=== PATIENT | male | born 1935 | race Caucasian/White ===

== ENCOUNTER 2017-08-09 16:50 | Emergency (ER) | payer MEDICARE, OTHER ==
[2017-08-09 19:50] LABS: ADD MAN DIFF? NO
[2017-08-09 19:52] LABS: BASOPHILS % 0.2 % (0.0-2.0); EOSINOPHILS # 0.1 10^3/ul (0.0-0.5); EOSINOPHILS % 0.7 % (0.0-7.0); HEMATOCRIT 34.1 % (42.0-52.0); HEMOGLOBIN 11.2 g/dl (14.0-18.0); LYMPHOCYTES # 2.3 10^3/ul (0.8-2.9); LYMPHOCYTES % 23.1 % (15.0-51.0); MEAN CORPUSCULAR HEMOGLOBIN 26.9 pg (29.0-33.0); MEAN CORPUSCULAR HGB CONC 32.8 g/dl (32.0-37.0); MEAN PLATELET VOLUME 10.1 fl (7.4-10.4); MONOCYTE # 0.6 10^3/ul (0.3-0.9); MONOCYTES % 5.8 % (0.0-11.0); NEUTROPHIL # 6.8 10^3/ul (1.6-7.5); NEUTROPHILS % 68.2 % (39.0-77.0); PLATELET COUNT 178 10^3/UL (140-415); RED BLOOD COUNT 4.16 10^6/ul (4.70-6.10); RED CELL DISTRIBUTION WIDTH 19.2 % (11.5-14.5)
[2017-08-09] MEDS: ACETAMINOPHEN 500 MG TAB PO (19:56)
[2017-08-09 20:18] LABS: LACTIC ACID 1.3 mmol/L (0.5-2.0)
[2017-08-09 20:18] LABS: ALANINE AMINOTRANSFERASE 17 IU/L (13-69); ALBUMIN 4.7 g/dl (3.3-4.9); ALBUMIN/GLOBULIN RATIO 1.14; ALKALINE PHOSPHATASE 95 IU/L (42-121); ANION GAP 22 (8-16); ASPARTATE AMINO TRANSFERASE 26 IU/L (15-46); BILIRUBIN,INDIRECT 0.7 mg/dl (0-1.1); BILIRUBIN,TOTAL 0.7 mg/dl (0.2-1.3); BLOOD UREA NITROGEN 26 mg/dl (7-20); CALCIUM 9.1 mg/dl (8.4-10.2); CARBON DIOXIDE 21 mmol/L (21-31); CHLORIDE 106 mmol/L (97-110); CREATININE 1.47 mg/dl (0.61-1.24); GLUCOSE 112 mg/dl (70-220); POTASSIUM 3.3 mmol/L (3.5-5.1); SODIUM 146 mmol/L (135-144); TOTAL PROTEIN 8.8 g/dl (6.1-8.1)
[2017-08-09 20:20] LABS: PT RATIO 1.1
[2017-08-09 20:21] LABS: PARTIAL THROMBOPLASTIN TIME 31.5 Sec (25.0-35.0)
[2017-08-09 20:28] LABS: B-TYPE NATRIURETIC PEPTIDE 6020 PG/ML (0-450); TROPONIN-I 0.022 ng/ml (0.00-0.12)
[2017-08-09 20:38] LABS: ADD UMIC YES; UR ASCORBIC ACID NEGATIVE (NEGATIVE); UR BACTERIA FEW /HPF (NONE SEEN); UR BILIRUBIN (Dip) NEGATIVE (NEGATIVE); UR BLOOD (Dip) 3+ mg/dL (NEGATIVE); UR CLARITY CLEAR (CLEAR); UR COLOR YELLOW (YELLOW); UR GLUCOSE (Dip) NEGATIVE (NEGATIVE); UR KETONES (Dip) NEGATIVE (NEGATIVE); UR LEUKOCYTE ESTERASE (Dip) TRACE Leu/ul (NEGATIVE); UR NITRITE (Dip) NEGATIVE (NEGATIVE); UR RBC 15 /HPF (0-5); UR SPECIFIC GRAVITY (Dip) 1.008 (1.003-1.030); UR TOTAL PROTEIN (Dip) 1+ mg/dl (NEGATIVE); UR UROBILINOGEN (Dip) NEGATIVE (NEGATIVE); UR WBC 7 /HPF (0-5)
[2017-08-09 21:21] LABS: INR 1.09; PROTIME 14.2 Sec (11.9-14.9)
[2017-08-09] MEDS: CEFTRIAXONE 1 GM/50 ML (PMX) 50 ML IVPB (22:04)
[2017-08-09] MEDS: FUROSEMIDE 40 MG INJ IV (22:04)
== END 2017-08-09 23:31 | disposition home or self-care (01) ==
LOC: E/R 16:50
DX: N30.01 Acute cystitis with hematuria (principal); I50.9 Heart failure, unspecified; I10 Essential (primary) hypertension; Z79.4 Long term (current) use of insulin; Z79.82 Long term (current) use of aspirin; Z79.84 Long term (current) use of oral hypoglycemic drugs
CPT/HCPCS: 71045; 74176; 80053; 81001; 83605; 83880; 84484; 85025; 85610; 85730; 87040; 87086; 93005; 96374; 96375; 99285-25

== ENCOUNTER 2017-08-17 07:47 | Inpatient (IN) | payer MEDICARE, OTHER ==
[2017-08-17] MEDS ORDERED: IODIXANOL LOCM 100 ML BTL ×3 (09:22→10:55)
[2017-08-17] MEDS ORDERED: LIDOCAINE 1% (MDV) 20 ML INJ (09:22)
[2017-08-17] MEDS ORDERED: FENTAnyl 50 MCG/ML VIAL (09:22)
[2017-08-17] MEDS ORDERED: MIDAZOLAM 1 MG/ML 2 ML INJ (09:22)
[2017-08-17] MEDS ORDERED: VERAPAMIL 5 MG INJ (09:23)
[2017-08-17] MEDS ORDERED: NITROGLYCERIN (IC) 100 MCG/ML INJ (09:23)
[2017-08-17] MEDS ORDERED: HEPARIN 1000 UNITS/ML 10 ML INJ (09:23)
[2017-08-17] MEDS ORDERED: TICAGRELOR 90 MG TABLET (10:09)
[2017-08-17] MEDS ORDERED: ASPIRIN 81 MG TAB (10:09)
[2017-08-17] MEDS ORDERED: IOHEXOL 350MG/ML 50 ML BTL (10:55)
[2017-08-17] MEDS ORDERED: AL HYDROX/MG HYDROX/SIMETH 30 ML CUP PO (11:00)
[2017-08-17] MEDS ORDERED: morphine 2 MG INJ IV (11:00)
[2017-08-17] MEDS ORDERED: OXYCODONE/ACETAMINOPHEN (5/325) TAB PO (11:00)
[2017-08-17] MEDS ORDERED: ONDANSETRON 4 MG INJ IV ×2 (11:00→18:00)
[2017-08-17] MEDS ORDERED: ACETAMINOPHEN 325 MG TAB PO ×2 (11:00→18:00)
[2017-08-17] MEDS: SOD CHLORIDE 0.9% 1,000 ML IV (11:29)
[2017-08-17] MEDS ORDERED: NITROGLYCERIN (SL) 0.4 MG TAB (11:55)
[2017-08-17] MEDS ORDERED: NITROGLYCERIN (SL) 0.4 MG TAB SL (12:00)
[2017-08-17] MEDS: NITROGLYCERIN (SL) 0.4 MG TAB SL (12:07)
[2017-08-17] MEDS ORDERED: DOCUSATE SODIUM 100 MG CAP PO (18:00)
[2017-08-17] MEDS ORDERED: NACL 0.9% 3 ML SYG IV (18:00)
[2017-08-17] MEDS: POTASSIUM CHLORIDE (SR) 10 MEQ TAB PO (18:06)
[2017-08-17] MEDS ORDERED: GLUCOSE GEL 15 GRAM TUBE PO ×2 (18:30)
[2017-08-17] MEDS ORDERED: GLUCOSE GEL 15 GRAM TUBE BUCCAL (18:30)
[2017-08-17] MEDS ORDERED: GLUCAGON 1 MG INJ IM (18:30)
[2017-08-17] MEDS ORDERED: DEXTROSE 50% 50 ML SYRINGE IV ×2 (18:30)
[2017-08-17] MEDS: ACETYLCYSTEINE 600 MG CAP PO (20:32)
[2017-08-17] MEDS: ZOLPIDEM 5 MG TAB PO (20:32)
[2017-08-17] MEDS: TICAGRELOR 90 MG TABLET PO (20:35)
[2017-08-17] MEDS: INSULIN ASPART [NOVOLOG] 3 ML PEN SC (20:39)
[2017-08-18] MEDS: ACCU-CHEK XX (02:00)
[2017-08-18 05:52] LABS: ADD MAN DIFF? NO
[2017-08-18 06:02] LABS: BASOPHILS % 0.2 % (0.0-2.0); EOSINOPHILS % 0.7 % (0.0-7.0); HEMATOCRIT 24.9 % (42.0-52.0); HEMOGLOBIN 8.2 g/dl (14.0-18.0); LYMPHOCYTES # 1.2 10^3/ul (0.8-2.9); LYMPHOCYTES % 21.8 % (15.0-51.0); MEAN CORPUSCULAR HEMOGLOBIN 26.9 pg (29.0-33.0); MEAN CORPUSCULAR HGB CONC 32.9 g/dl (32.0-37.0); MEAN CORPUSCULAR VOLUME 81.6 fl (82.0-101.0); MEAN PLATELET VOLUME 11.6 fl (7.4-10.4); MONOCYTE # 0.3 10^3/ul (0.3-0.9); MONOCYTES % 5.6 % (0.0-11.0); NEUTROPHIL # 3.9 10^3/ul (1.6-7.5); NEUTROPHILS % 70.6 % (39.0-77.0); PLATELET COUNT 200 10^3/UL (140-415); RED BLOOD COUNT 3.05 10^6/ul (4.70-6.10); RED CELL DISTRIBUTION WIDTH 18.2 % (11.5-14.5)
[2017-08-18 06:02] LABS: WHITE BLOOD COUNT 5.5 10^3/ul (4.8-10.8)
[2017-08-18 06:22] LABS: ADD UMIC NO; UR ASCORBIC ACID 20 mg/dL (NEGATIVE); UR BILIRUBIN (Dip) NEGATIVE (NEGATIVE); UR BLOOD (Dip) NEGATIVE (NEGATIVE); UR CLARITY CLEAR (CLEAR); UR COLOR YELLOW (YELLOW); UR GLUCOSE (Dip) NEGATIVE (NEGATIVE); UR KETONES (Dip) NEGATIVE (NEGATIVE); UR LEUKOCYTE ESTERASE (Dip) NEGATIVE Leu/ul (NEGATIVE); UR NITRITE (Dip) NEGATIVE (NEGATIVE); UR TOTAL PROTEIN (Dip) NEGATIVE (NEGATIVE); UR UROBILINOGEN (Dip) NEGATIVE (NEGATIVE)
[2017-08-18 06:24] LABS: ANION GAP 15 (8-16); BLOOD UREA NITROGEN 42 mg/dl (7-20); CALCIUM 8.8 mg/dl (8.4-10.2); CARBON DIOXIDE 21 mmol/L (21-31); CHLORIDE 111 mmol/L (97-110); CREATININE 1.69 mg/dl (0.61-1.24); GLUCOSE 132 mg/dl (70-220); POTASSIUM 4.6 mmol/L (3.5-5.1); SODIUM 142 mmol/L (135-144)
[2017-08-18] MEDS: INSULIN ASPART [NOVOLOG] 3 ML PEN SC ×4 (07:35→21:00)
[2017-08-18] MEDS: ASPIRIN (EC) 81 MG TAB PO (08:08)
[2017-08-18] MEDS: ACETYLCYSTEINE 600 MG CAP PO ×2 (08:08→21:12)
[2017-08-18] MEDS: TICAGRELOR 90 MG TABLET PO ×2 (08:09→21:18)
[2017-08-18] MEDS: ATORVASTATIN 40 MG TAB PO (21:13)
[2017-08-18] MEDS: ZOLPIDEM 5 MG TAB PO (21:16)
[2017-08-19] MEDS: ACCU-CHEK XX (01:36)
[2017-08-19 06:43] LABS: ADD MAN DIFF? NO
[2017-08-19 06:52] LABS: WHITE BLOOD COUNT 5.3 10^3/ul (4.8-10.8)
[2017-08-19 06:52] LABS: BASOPHILS % 0.4 % (0.0-2.0); EOSINOPHILS % 0.6 % (0.0-7.0); HEMATOCRIT 25.4 % (42.0-52.0); HEMOGLOBIN 8.4 g/dl (14.0-18.0); LYMPHOCYTES # 1.3 10^3/ul (0.8-2.9); LYMPHOCYTES % 23.8 % (15.0-51.0); MEAN CORPUSCULAR HEMOGLOBIN 27.2 pg (29.0-33.0); MEAN CORPUSCULAR HGB CONC 33.1 g/dl (32.0-37.0); MEAN CORPUSCULAR VOLUME 82.2 fl (82.0-101.0); MEAN PLATELET VOLUME 10.8 fl (7.4-10.4); MONOCYTE # 0.3 10^3/ul (0.3-0.9); MONOCYTES % 6.4 % (0.0-11.0); NEUTROPHIL # 3.6 10^3/ul (1.6-7.5); NEUTROPHILS % 67.1 % (39.0-77.0); PLATELET COUNT 197 10^3/UL (140-415); RED BLOOD COUNT 3.09 10^6/ul (4.70-6.10)
[2017-08-19] MEDS: INSULIN ASPART [NOVOLOG] 3 ML PEN SC ×4 (07:29→21:00)
[2017-08-19 07:46] LABS: ANION GAP 16 (8-16); BLOOD UREA NITROGEN 34 mg/dl (7-20); CALCIUM 8.7 mg/dl (8.4-10.2); CARBON DIOXIDE 21 mmol/L (21-31); CHLORIDE 111 mmol/L (97-110); CREATININE 1.69 mg/dl (0.61-1.24); GLUCOSE 128 mg/dl (70-220); SODIUM 143 mmol/L (135-144)
[2017-08-19 07:50] LABS: POTASSIUM 4.7 mmol/L (3.5-5.1)
[2017-08-19] MEDS: ASPIRIN (EC) 81 MG TAB PO (08:00)
[2017-08-19] MEDS: TICAGRELOR 90 MG TABLET PO ×2 (08:00→20:48)
[2017-08-19] MEDS: ACETYLCYSTEINE 600 MG CAP PO ×2 (08:01→20:40)
[2017-08-19] MEDS: FUROSEMIDE 20 MG INJ IV ×2 (11:33→20:45)
[2017-08-19] MEDS ORDERED: ALBUTEROL 0.083% (NEB) 2.5 MG/3 ML AMP HHN (14:30)
[2017-08-19] MEDS: ALBUTEROL 0.083% (NEB) 2.5 MG/3 ML AMP HHN (14:44)
[2017-08-19] MEDS: AMLODIPINE 5 MG TAB PO (16:14)
[2017-08-19] MEDS: LEVALBUTEROL (NEB) 0.63 MG/3 ML AMP HHN ×2 (17:00→21:00)
[2017-08-19] MEDS: LATANOPROST 0.005% 2.5 ML OPH BOTH EYES (20:39)
[2017-08-19] MEDS: ATORVASTATIN 40 MG TAB PO (20:40)
[2017-08-19] MEDS: CEFTRIAXONE 1 GM/50 ML (PMX) 50 ML IVPB (20:41)
[2017-08-19] MEDS: ZOLPIDEM 5 MG TAB PO (20:58)
[2017-08-20] MEDS: LEVALBUTEROL (NEB) 0.63 MG/3 ML AMP HHN ×6 (00:34→19:51)
[2017-08-20] MEDS: ACCU-CHEK XX (02:00)
[2017-08-20] MEDS: LEVOTHYROXINE 88 MCG TAB PO (05:34)
[2017-08-20] MEDS: INSULIN ASPART [NOVOLOG] 3 ML PEN SC ×4 (08:55→20:38)
[2017-08-20] MEDS: ASPIRIN (EC) 81 MG TAB PO (09:00)
[2017-08-20] MEDS: ACETYLCYSTEINE 600 MG CAP PO ×2 (09:00→20:38)
[2017-08-20] MEDS: ALLOPURINOL 100 MG TAB PO (09:01)
[2017-08-20] MEDS: AMLODIPINE 5 MG TAB PO (09:02)
[2017-08-20] MEDS: FUROSEMIDE 20 MG INJ IV ×3 (09:03→20:36)
[2017-08-20] MEDS: TICAGRELOR 90 MG TABLET PO ×2 (09:16→20:39)
[2017-08-20] MEDS: LATANOPROST 0.005% 2.5 ML OPH BOTH EYES (20:35)
[2017-08-20] MEDS: CEFTRIAXONE 1 GM/50 ML (PMX) 50 ML IVPB (20:36)
[2017-08-20] MEDS: ATORVASTATIN 40 MG TAB PO (20:37)
[2017-08-20] MEDS: ZOLPIDEM 5 MG TAB PO (20:43)
[2017-08-21] MEDS: LEVALBUTEROL (NEB) 0.63 MG/3 ML AMP HHN ×6 (01:28→20:40)
[2017-08-21] MEDS: ACCU-CHEK XX (02:00)
[2017-08-21] MEDS: LEVOTHYROXINE 88 MCG TAB PO (06:13)
[2017-08-21 07:29] LABS: ADD MAN DIFF? NO
[2017-08-21 07:32] LABS: BASOPHILS % 0.2 % (0.0-2.0); EOSINOPHILS # 0.1 10^3/ul (0.0-0.5); EOSINOPHILS % 1.3 % (0.0-7.0); HEMATOCRIT 24.6 % (42.0-52.0); HEMOGLOBIN 8.1 g/dl (14.0-18.0); LYMPHOCYTES # 0.9 10^3/ul (0.8-2.9); LYMPHOCYTES % 16.4 % (15.0-51.0); MEAN CORPUSCULAR HEMOGLOBIN 26.6 pg (29.0-33.0); MEAN CORPUSCULAR HGB CONC 32.9 g/dl (32.0-37.0); MEAN CORPUSCULAR VOLUME 80.7 fl (82.0-101.0); MEAN PLATELET VOLUME 10.7 fl (7.4-10.4); MONOCYTE # 0.5 10^3/ul (0.3-0.9); MONOCYTES % 9.1 % (0.0-11.0); NEUTROPHIL # 3.8 10^3/ul (1.6-7.5); PLATELET COUNT 200 10^3/UL (140-415); RED BLOOD COUNT 3.05 10^6/ul (4.70-6.10); RED CELL DISTRIBUTION WIDTH 17.9 % (11.5-14.5)
[2017-08-21 07:32] LABS: WHITE BLOOD COUNT 5.4 10^3/ul (4.8-10.8)
[2017-08-21] MEDS: INSULIN ASPART [NOVOLOG] 3 ML PEN SC ×4 (07:55→21:36)
[2017-08-21 07:58] LABS: ALANINE AMINOTRANSFERASE 75 IU/L (13-69); ALBUMIN 3.5 g/dl (3.3-4.9); ALBUMIN/GLOBULIN RATIO 0.89; ALKALINE PHOSPHATASE 210 IU/L (42-121); ANION GAP 15 (8-16); ASPARTATE AMINO TRANSFERASE 105 IU/L (15-46); BILIRUBIN,INDIRECT 0.2 mg/dl (0-1.1); BILIRUBIN,TOTAL 0.2 mg/dl (0.2-1.3); BLOOD UREA NITROGEN 37 mg/dl (7-20); CALCIUM 8.7 mg/dl (8.4-10.2); CARBON DIOXIDE 24 mmol/L (21-31); CHLORIDE 110 mmol/L (97-110); CREATININE 1.85 mg/dl (0.61-1.24); GLUCOSE 107 mg/dl (70-220); POTASSIUM 3.6 mmol/L (3.5-5.1); SODIUM 145 mmol/L (135-144); TOTAL PROTEIN 7.4 g/dl (6.1-8.1)
[2017-08-21] MEDS: FUROSEMIDE 20 MG INJ IV (08:01)
[2017-08-21] MEDS: ALLOPURINOL 100 MG TAB PO (08:02)
[2017-08-21] MEDS: AMLODIPINE 5 MG TAB PO (08:02)
[2017-08-21] MEDS: ASPIRIN (EC) 81 MG TAB PO (08:02)
[2017-08-21] MEDS: ACETYLCYSTEINE 600 MG CAP PO ×2 (08:02→21:33)
[2017-08-21] MEDS: TICAGRELOR 90 MG TABLET PO ×2 (08:16→21:35)
[2017-08-21] MEDS: LATANOPROST 0.005% 2.5 ML OPH BOTH EYES (21:32)
[2017-08-21] MEDS: ATORVASTATIN 40 MG TAB PO (21:33)
[2017-08-21] MEDS: ZOLPIDEM 5 MG TAB PO (21:33)
[2017-08-21] MEDS: CEFTRIAXONE 1 GM/50 ML (PMX) 50 ML IVPB (21:33)
[2017-08-22] MEDS: LEVALBUTEROL (NEB) 0.63 MG/3 ML AMP HHN ×6 (01:42→20:32)
[2017-08-22] MEDS: ACCU-CHEK XX (02:54)
[2017-08-22] MEDS: LEVOTHYROXINE 88 MCG TAB PO (06:41)
[2017-08-22] MEDS: INSULIN ASPART [NOVOLOG] 3 ML PEN SC ×4 (07:55→20:47)
[2017-08-22 08:06] LABS: ALANINE AMINOTRANSFERASE 425 IU/L (13-69); ALBUMIN 3.4 g/dl (3.3-4.9); ALBUMIN/GLOBULIN RATIO 0.87; ALKALINE PHOSPHATASE 500 IU/L (42-121); ANION GAP 16 (8-16); ASPARTATE AMINO TRANSFERASE 697 IU/L (15-46); BILIRUBIN,INDIRECT 0.2 mg/dl (0-1.1); BILIRUBIN,TOTAL 0.2 mg/dl (0.2-1.3); BLOOD UREA NITROGEN 37 mg/dl (7-20); CALCIUM 8.7 mg/dl (8.4-10.2); CARBON DIOXIDE 24 mmol/L (21-31); CHLORIDE 107 mmol/L (97-110); CREATININE 1.88 mg/dl (0.61-1.24); GLUCOSE 113 mg/dl (70-220); POTASSIUM 3.5 mmol/L (3.5-5.1); SODIUM 143 mmol/L (135-144); TOTAL PROTEIN 7.3 g/dl (6.1-8.1)
[2017-08-22] MEDS: ACETYLCYSTEINE 600 MG CAP PO ×2 (08:42→20:43)
[2017-08-22] MEDS: ASPIRIN (EC) 81 MG TAB PO (08:42)
[2017-08-22] MEDS: AMLODIPINE 5 MG TAB PO (08:43)
[2017-08-22] MEDS: ALLOPURINOL 100 MG TAB PO (08:43)
[2017-08-22] MEDS: FUROSEMIDE 20 MG INJ IV (08:43)
[2017-08-22] MEDS: TICAGRELOR 90 MG TABLET PO ×2 (08:47→20:50)
[2017-08-22] MEDS: ZOLPIDEM 5 MG TAB PO (20:43)
[2017-08-22] MEDS: LATANOPROST 0.005% 2.5 ML OPH BOTH EYES (20:44)
[2017-08-22] MEDS: CEFTRIAXONE 1 GM/50 ML (PMX) 50 ML IVPB (20:44)
[2017-08-23] MEDS: LEVALBUTEROL (NEB) 0.63 MG/3 ML AMP HHN ×6 (01:00→20:24)
[2017-08-23] MEDS: ACCU-CHEK XX (02:42)
[2017-08-23] MEDS: LEVOTHYROXINE 88 MCG TAB PO (06:52)
[2017-08-23 07:50] LABS: ALANINE AMINOTRANSFERASE 504 IU/L (13-69); ALBUMIN 3.5 g/dl (3.3-4.9); ALKALINE PHOSPHATASE 697 IU/L (42-121); ASPARTATE AMINO TRANSFERASE 684 IU/L (15-46); BILIRUBIN,INDIRECT 0.3 mg/dl (0-1.1); BILIRUBIN,TOTAL 0.3 mg/dl (0.2-1.3); TOTAL PROTEIN 6.7 g/dl (6.1-8.1)
[2017-08-23 07:53] LABS: ALANINE AMINOTRANSFERASE 523 IU/L (13-69); ALBUMIN 3.7 g/dl (3.3-4.9); ALKALINE PHOSPHATASE 715 IU/L (42-121); ANION GAP 16 (8-16); ASPARTATE AMINO TRANSFERASE 700 IU/L (15-46); BILIRUBIN,INDIRECT 0.2 mg/dl (0-1.1); BILIRUBIN,TOTAL 0.2 mg/dl (0.2-1.3); BLOOD UREA NITROGEN 28 mg/dl (7-20); CALCIUM 9.1 mg/dl (8.4-10.2); CARBON DIOXIDE 23 mmol/L (21-31); CHLORIDE 109 mmol/L (97-110); CREATININE 1.72 mg/dl (0.61-1.24); GLUCOSE 118 mg/dl (70-220); POTASSIUM 3.6 mmol/L (3.5-5.1); SODIUM 144 mmol/L (135-144); TOTAL PROTEIN 7.8 g/dl (6.1-8.1)
[2017-08-23] MEDS: INSULIN ASPART [NOVOLOG] 3 ML PEN SC ×4 (07:55→20:59)
[2017-08-23] MEDS: FUROSEMIDE 20 MG INJ IV (09:14)
[2017-08-23] MEDS: ACETYLCYSTEINE 600 MG CAP PO ×2 (09:14→20:49)
[2017-08-23] MEDS: AMLODIPINE 2.5 MG TAB PO (09:14)
[2017-08-23] MEDS: ALLOPURINOL 100 MG TAB PO (09:15)
[2017-08-23] MEDS: ASPIRIN (EC) 81 MG TAB PO (09:15)
[2017-08-23] MEDS: TICAGRELOR 90 MG TABLET PO ×2 (09:22→20:53)
[2017-08-23 16:09] LABS: HAAIG REFLEX REFLEX FILED
[2017-08-23 17:25] LABS: HEPATITIS B SURFACE ANTIGEN NEGATIVE (NEGATIVE)
[2017-08-23 17:43] LABS: HEPATITIS B CORE ANTIBODY NEGATIVE (NEGATIVE); HEPATITIS C VIRAL ANTIBODY NEGATIVE (NEGATIVE)
[2017-08-23] MEDS: CEFTRIAXONE 1 GM/50 ML (PMX) 50 ML IVPB (20:49)
[2017-08-23] MEDS: LATANOPROST 0.005% 2.5 ML OPH BOTH EYES (20:49)
[2017-08-23] MEDS: ZOLPIDEM 5 MG TAB PO (21:05)
[2017-08-24] MEDS: LEVALBUTEROL (NEB) 0.63 MG/3 ML AMP HHN ×6 (01:24→20:59)
[2017-08-24] MEDS: ACCU-CHEK XX (02:00)
[2017-08-24] MEDS: LEVOTHYROXINE 88 MCG TAB PO (06:20)
[2017-08-24] MEDS: INSULIN ASPART [NOVOLOG] 3 ML PEN SC ×4 (07:55→20:20)
[2017-08-24] MEDS: ASPIRIN (EC) 81 MG TAB PO (08:31)
[2017-08-24] MEDS: ACETYLCYSTEINE 600 MG CAP PO ×2 (08:32→20:24)
[2017-08-24] MEDS: TICAGRELOR 90 MG TABLET PO ×2 (08:33→20:44)
[2017-08-24] MEDS: ALLOPURINOL 100 MG TAB PO (08:33)
[2017-08-24] MEDS: FUROSEMIDE 20 MG INJ IV (08:34)
[2017-08-24 08:47] LABS: ADD MAN DIFF? NO
[2017-08-24 08:52] LABS: BASOPHILS % 0.5 % (0.0-2.0); EOSINOPHILS # 0.1 10^3/ul (0.0-0.5); EOSINOPHILS % 1.1 % (0.0-7.0); HEMOGLOBIN 8.2 g/dl (14.0-18.0); LYMPHOCYTES # 1.3 10^3/ul (0.8-2.9); LYMPHOCYTES % 29.9 % (15.0-51.0); MEAN CORPUSCULAR HEMOGLOBIN 26.6 pg (29.0-33.0); MEAN CORPUSCULAR HGB CONC 32.8 g/dl (32.0-37.0); MEAN CORPUSCULAR VOLUME 81.2 fl (82.0-101.0); MEAN PLATELET VOLUME 11.2 fl (7.4-10.4); MONOCYTE # 0.4 10^3/ul (0.3-0.9); MONOCYTES % 9.2 % (0.0-11.0); NEUTROPHIL # 2.5 10^3/ul (1.6-7.5); NEUTROPHILS % 57.5 % (39.0-77.0); PLATELET COUNT 208 10^3/UL (140-415); RED BLOOD COUNT 3.08 10^6/ul (4.70-6.10); RED CELL DISTRIBUTION WIDTH 17.8 % (11.5-14.5)
[2017-08-24 08:52] LABS: WHITE BLOOD COUNT 4.4 10^3/ul (4.8-10.8)
[2017-08-24 09:17] LABS: ALANINE AMINOTRANSFERASE 419 IU/L (13-69); ALBUMIN 3.6 g/dl (3.3-4.9); ALKALINE PHOSPHATASE 756 IU/L (42-121); ANION GAP 13 (8-16); ASPARTATE AMINO TRANSFERASE 387 IU/L (15-46); BILIRUBIN,INDIRECT 0.1 mg/dl (0-1.1); BILIRUBIN,TOTAL 0.1 mg/dl (0.2-1.3); BLOOD UREA NITROGEN 29 mg/dl (7-20); CALCIUM 9.1 mg/dl (8.4-10.2); CARBON DIOXIDE 23 mmol/L (21-31); CHLORIDE 109 mmol/L (97-110); CREATININE 1.73 mg/dl (0.61-1.24); GLUCOSE 104 mg/dl (70-220); POTASSIUM 3.6 mmol/L (3.5-5.1); SODIUM 141 mmol/L (135-144); TOTAL PROTEIN 7.6 g/dl (6.1-8.1)
[2017-08-24] MEDS: ZOLPIDEM 5 MG TAB PO (20:22)
[2017-08-24] MEDS: CEFTRIAXONE 1 GM/50 ML (PMX) 50 ML IVPB (20:22)
[2017-08-24] MEDS: LATANOPROST 0.005% 2.5 ML OPH BOTH EYES (20:23)
[2017-08-25] MEDS: LEVALBUTEROL (NEB) 0.63 MG/3 ML AMP HHN ×6 (00:59→20:52)
[2017-08-25] MEDS: ACCU-CHEK XX (02:00)
[2017-08-25] MEDS: LEVOTHYROXINE 88 MCG TAB PO (05:33)
[2017-08-25] MEDS: INSULIN ASPART [NOVOLOG] 3 ML PEN SC ×4 (07:47→20:35)
[2017-08-25] MEDS: ALLOPURINOL 100 MG TAB PO (08:20)
[2017-08-25] MEDS: ASPIRIN (EC) 81 MG TAB PO (08:20)
[2017-08-25] MEDS: ACETYLCYSTEINE 600 MG CAP PO ×2 (08:20→20:18)
[2017-08-25] MEDS: FUROSEMIDE 20 MG INJ IV (08:21)
[2017-08-25] MEDS: TICAGRELOR 90 MG TABLET PO ×2 (08:27→20:35)
[2017-08-25] MEDS: ZOLPIDEM 5 MG TAB PO (20:18)
[2017-08-25] MEDS: CEFTRIAXONE 1 GM/50 ML (PMX) 50 ML IVPB (20:20)
[2017-08-25] MEDS: LATANOPROST 0.005% 2.5 ML OPH BOTH EYES (20:20)
[2017-08-26] MEDS: LEVALBUTEROL (NEB) 0.63 MG/3 ML AMP HHN ×6 (01:06→20:27)
[2017-08-26] MEDS: ACCU-CHEK XX (02:00)
[2017-08-26] MEDS: LEVOTHYROXINE 88 MCG TAB PO (05:49)
[2017-08-26 07:28] LABS: ALANINE AMINOTRANSFERASE 233 IU/L (13-69); ALBUMIN 3.6 g/dl (3.3-4.9); ALBUMIN/GLOBULIN RATIO 0.87; ALKALINE PHOSPHATASE 580 IU/L (42-121); ANION GAP 15 (8-16); ASPARTATE AMINO TRANSFERASE 110 IU/L (15-46); BILIRUBIN,INDIRECT 0.2 mg/dl (0-1.1); BILIRUBIN,TOTAL 0.2 mg/dl (0.2-1.3); BLOOD UREA NITROGEN 29 mg/dl (7-20); CALCIUM 9.1 mg/dl (8.4-10.2); CARBON DIOXIDE 21 mmol/L (21-31); CHLORIDE 111 mmol/L (97-110); CREATININE 1.47 mg/dl (0.61-1.24); GLUCOSE 111 mg/dl (70-220); POTASSIUM 3.2 mmol/L (3.5-5.1); SODIUM 144 mmol/L (135-144); TOTAL PROTEIN 7.7 g/dl (6.1-8.1)
[2017-08-26] MEDS: INSULIN ASPART [NOVOLOG] 3 ML PEN SC ×4 (07:38→21:16)
[2017-08-26] MEDS: ACETYLCYSTEINE 600 MG CAP PO ×2 (08:12→20:58)
[2017-08-26] MEDS: ALLOPURINOL 100 MG TAB PO (08:12)
[2017-08-26] MEDS: ASPIRIN (EC) 81 MG TAB PO (08:13)
[2017-08-26] MEDS: FUROSEMIDE 20 MG INJ IV (08:14)
[2017-08-26] MEDS: TICAGRELOR 90 MG TABLET PO ×2 (08:20→21:16)
[2017-08-26] MEDS: CEFTRIAXONE 1 GM/50 ML (PMX) 50 ML IVPB (21:01)
[2017-08-26] MEDS: LATANOPROST 0.005% 2.5 ML OPH BOTH EYES (21:01)
[2017-08-26] MEDS: ZOLPIDEM 5 MG TAB PO (21:01)
[2017-08-27] MEDS: LEVALBUTEROL (NEB) 0.63 MG/3 ML AMP HHN ×5 (00:49→16:14)
[2017-08-27] MEDS: ACCU-CHEK XX (02:34)
[2017-08-27] MEDS: LEVOTHYROXINE 88 MCG TAB PO (05:30)
[2017-08-27] MEDS: INSULIN ASPART [NOVOLOG] 3 ML PEN SC ×3 (07:55→17:52)
[2017-08-27 08:02] LABS: ALANINE AMINOTRANSFERASE 180 IU/L (13-69); ALBUMIN 3.8 g/dl (3.3-4.9); ALBUMIN/GLOBULIN RATIO 1.02; ALKALINE PHOSPHATASE 496 IU/L (42-121); ANION GAP 15 (8-16); ASPARTATE AMINO TRANSFERASE 68 IU/L (15-46); BILIRUBIN,INDIRECT 0.3 mg/dl (0-1.1); BILIRUBIN,TOTAL 0.3 mg/dl (0.2-1.3); BLOOD UREA NITROGEN 25 mg/dl (7-20); CALCIUM 8.9 mg/dl (8.4-10.2); CARBON DIOXIDE 22 mmol/L (21-31); CHLORIDE 112 mmol/L (97-110); CREATININE 1.36 mg/dl (0.61-1.24); GLUCOSE 103 mg/dl (70-220); POTASSIUM 3.5 mmol/L (3.5-5.1); SODIUM 145 mmol/L (135-144); TOTAL PROTEIN 7.5 g/dl (6.1-8.1)
[2017-08-27] MEDS: ACETYLCYSTEINE 600 MG CAP PO (08:39)
[2017-08-27] MEDS: ALLOPURINOL 100 MG TAB PO (08:40)
[2017-08-27] MEDS: ASPIRIN (EC) 81 MG TAB PO (08:40)
[2017-08-27] MEDS: FUROSEMIDE 20 MG INJ IV (08:41)
[2017-08-27] MEDS: TICAGRELOR 90 MG TABLET PO (09:22)
== END 2017-08-27 18:58 | disposition home or self-care (01) | DRG 246 ==
LOC: CCL 07:47 → TEL 08-18 15:45 → ICU 11:03
PROVIDERS: Internal Medicine Nephrology
PROC: 027135Z Dilation of Coronary Artery, Two Arteries with Two Drug-eluting Intraluminal Devices, Percutaneous Approach (ICD-10-PCS; principal; 2017-08-17 09:00)
PROC: 4A023N7 Measurement of Cardiac Sampling and Pressure, Left Heart, Percutaneous Approach (ICD-10-PCS; 2017-08-17 09:00)
PROC: B211YZZ Fluoroscopy of Multiple Coronary Arteries using Other Contrast (ICD-10-PCS; 2017-08-17 09:00)
DX: I21.4 Non-ST elevation (NSTEMI) myocardial infarction (principal); J18.9 Pneumonia, unspecified organism; I50.23 Acute on chronic systolic (congestive) heart failure; N17.9 Acute kidney failure, unspecified; E11.22 Type 2 diabetes mellitus with diabetic chronic kidney disease; I42.9 Cardiomyopathy, unspecified; I13.0 Hypertensive heart and chronic kidney disease with heart failure and stage 1 through stage 4 chronic kidney disease, or unspecified chronic kidney disease; E87.1 Hypo-osmolality and hyponatremia; E78.5 Hyperlipidemia, unspecified; I25.10 Atherosclerotic heart disease of native coronary artery without angina pectoris; E03.9 Hypothyroidism, unspecified; E87.6 Hypokalemia; N18.9 Chronic kidney disease, unspecified; N14.1 Nephropathy induced by other drugs, medicaments and biological substances; D50.9 Iron deficiency anemia, unspecified; T50.8X5A Adverse effect of diagnostic agents, initial encounter; Y92.238 Other place in hospital as the place of occurrence of the external cause; Z95.2 Presence of prosthetic heart valve; Z95.5 Presence of coronary angioplasty implant and graft; Z95.0 Presence of cardiac pacemaker
CPT/HCPCS: 71045; 76705; 78226; 80048; 80053; 80076; 81003; 82962; 85025; 86704; 86709; 86803; 87340; 93005; 93454; 94640; 94664; J1940

== ENCOUNTER 2017-08-30 09:45 | Inpatient (IN) | payer MEDICARE, OTHER ==
[2017-08-30 11:29] LABS: ADD MAN DIFF? NO
[2017-08-30 11:33] LABS: BASOPHILS % 0.2 % (0.0-2.0); EOSINOPHILS # 0.1 10^3/ul (0.0-0.5); HEMATOCRIT 26.7 % (42.0-52.0); HEMOGLOBIN 8.5 g/dl (14.0-18.0); LYMPHOCYTES # 1.5 10^3/ul (0.8-2.9); LYMPHOCYTES % 26.3 % (15.0-51.0); MEAN CORPUSCULAR HEMOGLOBIN 26.8 pg (29.0-33.0); MEAN CORPUSCULAR HGB CONC 31.8 g/dl (32.0-37.0); MEAN CORPUSCULAR VOLUME 84.2 fl (82.0-101.0); MEAN PLATELET VOLUME 10.7 fl (7.4-10.4); MONOCYTE # 0.2 10^3/ul (0.3-0.9); MONOCYTES % 4.1 % (0.0-11.0); NEUTROPHIL # 3.8 10^3/ul (1.6-7.5); NEUTROPHILS % 65.8 % (39.0-77.0); PLATELET COUNT 198 10^3/UL (140-415); RED BLOOD COUNT 3.17 10^6/ul (4.70-6.10); RED CELL DISTRIBUTION WIDTH 18.9 % (11.5-14.5)
[2017-08-30 11:33] LABS: WHITE BLOOD COUNT 5.8 10^3/ul (4.8-10.8)
[2017-08-30 11:52] LABS: ANION GAP 18 (8-16); BLOOD UREA NITROGEN 26 mg/dl (7-20); CALCIUM 9.4 mg/dl (8.4-10.2); CARBON DIOXIDE 21 mmol/L (21-31); CHLORIDE 112 mmol/L (97-110); GLUCOSE 124 mg/dl (70-220); POTASSIUM 3.7 mmol/L (3.5-5.1); SODIUM 147 mmol/L (135-144)
[2017-08-30 12:06] LABS: TROPONIN-I < 0.012 ng/ml (0.00-0.12)
[2017-08-30 13:27] LABS: ADD UMIC NO; UR ASCORBIC ACID NEGATIVE (NEGATIVE); UR BILIRUBIN (Dip) NEGATIVE (NEGATIVE); UR BLOOD (Dip) NEGATIVE (NEGATIVE); UR CLARITY CLEAR (CLEAR); UR COLOR YELLOW (YELLOW); UR GLUCOSE (Dip) NEGATIVE (NEGATIVE); UR KETONES (Dip) NEGATIVE (NEGATIVE); UR LEUKOCYTE ESTERASE (Dip) NEGATIVE Leu/ul (NEGATIVE); UR NITRITE (Dip) NEGATIVE (NEGATIVE); UR SPECIFIC GRAVITY (Dip) 1.011 (1.003-1.030); UR TOTAL PROTEIN (Dip) NEGATIVE (NEGATIVE); UR UROBILINOGEN (Dip) NEGATIVE (NEGATIVE)
[2017-08-30 14:49] LABS: B-TYPE NATRIURETIC PEPTIDE 7220 PG/ML (0-450)
[2017-08-30] MEDS ORDERED: ACETAMINOPHEN 325 MG TAB PO ×2 (15:30→22:00)
[2017-08-30] MEDS ORDERED: ONDANSETRON 4 MG INJ IV (15:30)
[2017-08-30 17:14] LABS: CREATINE KINASE 26 IU/L (23-200)
[2017-08-30 17:23] LABS: CK INDEX 3.1; TROPONIN-I < 0.012 ng/ml (0.00-0.12)
[2017-08-30] MEDS ORDERED: NITROGLYCERIN (SL) 0.4 MG TAB SL (17:30)
[2017-08-30] MEDS ORDERED: DEXTROSE 50% 50 ML SYRINGE IV ×2 (17:30)
[2017-08-30] MEDS ORDERED: GLUCAGON 1 MG INJ IM (17:30)
[2017-08-30] MEDS ORDERED: GLUCOSE GEL 15 GRAM TUBE PO ×2 (17:30)
[2017-08-30] MEDS ORDERED: GLUCOSE GEL 15 GRAM TUBE BUCCAL (17:30)
[2017-08-30] MEDS: ISOSORBIDE MONONITRATE(SR)60 MG TAB PO (17:33)
[2017-08-30] MEDS: ASPIRIN (EC) 81 MG TAB PO (17:34)
[2017-08-30] MEDS: HYDROmorphONE 1 MG/ML SYG IV (18:35)
[2017-08-30] MEDS ORDERED: TICAGRELOR 90 MG TABLET PO (21:00)
[2017-08-30] MEDS ORDERED: NACL 0.9% 3 ML SYG IV (22:00)
[2017-08-30] MEDS ORDERED: ACETAMINOPHEN 650 MG SUPP PR (22:00)
[2017-08-30] MEDS ORDERED: MAGNESIUM HYDROXIDE 30ML CUP PO (22:00)
[2017-08-30] MEDS ORDERED: DOCUSATE SODIUM 100 MG CAP PO (22:00)
[2017-08-30] MEDS ORDERED: BISACODYL (EC) 5 MG TAB PO (22:00)
[2017-08-30] MEDS ORDERED: ONDANSETRON 4 MG TAB PO (22:00)
[2017-08-30] MEDS: INSULIN ASPART [NOVOLOG] 3 ML PEN SC (22:43)
[2017-08-30 22:48] LABS: CREATINE KINASE 27 IU/L (23-200)
[2017-08-30] MEDS: LATANOPROST 0.005% 2.5 ML OPH BOTH EYES (22:56)
[2017-08-30] MEDS: TICAGRELOR 90 MG TABLET PO (22:58)
[2017-08-30 22:59] LABS: CK INDEX 2.7
[2017-08-30 23:04] LABS: CK-MB 0.72 ng/ml (0.0-2.4); TROPONIN-I < 0.012 ng/ml (0.00-0.12)
[2017-08-31] MEDS: LEVALBUTEROL (NEB) 0.63 MG/3 ML AMP HHN ×6 (00:48→20:02)
[2017-08-31] MEDS: ACCU-CHEK XX (02:00)
[2017-08-31] MEDS: PANTOPRAZOLE 40 MG INJ IV (05:21)
[2017-08-31] MEDS: LEVOTHYROXINE 88 MCG TAB PO (06:28)
[2017-08-31 06:32] LABS: CREATINE KINASE 25 IU/L (23-200)
[2017-08-31 06:45] LABS: CK INDEX 3.1
[2017-08-31 06:46] LABS: CK-MB 0.78 ng/ml (0.0-2.4); TROPONIN-I < 0.012 ng/ml (0.00-0.12)
[2017-08-31] MEDS ORDERED: INSULIN ASPART [NOVOLOG] 3 ML PEN SC (07:55)
[2017-08-31] MEDS: INSULIN ASPART [NOVOLOG] 3 ML PEN SC ×4 (07:55→20:34)
[2017-08-31] MEDS: ASPIRIN 81 MG TAB PO (08:23)
[2017-08-31] MEDS: TICAGRELOR 90 MG TABLET PO ×2 (08:30→20:48)
[2017-08-31] MEDS: FUROSEMIDE 20 MG TAB PO (08:34)
[2017-08-31] MEDS: ISOSORBIDE MONONITRATE(SR)60 MG TAB PO (08:34)
[2017-08-31] MEDS: ALLOPURINOL 100 MG TAB PO (08:35)
[2017-08-31] MEDS: LINAGLIPTIN 5 MG TABLET PO (08:35)
[2017-08-31] MEDS: ENOXAPARIN 30 MG/0.3 ML SYG SC (08:39)
[2017-08-31] MEDS ORDERED: FUROSEMIDE 40 MG INJ IV (09:00)
[2017-08-31] MEDS ORDERED: FUROSEMIDE 20 MG TAB PO (09:00)
[2017-08-31 15:13] LABS: AADO2 Arterial 26.3 mmHg (7.0-24.0); Allen Test ACCEPTAB; Arterial Base Excess -0.9 mmol/L (-3.0-3); Arterial Blood Gas Oxygen Sat 96.6 mmHG (95.0-100.0); Arterial COHb 0.3 % (0.0-3.0); Arterial HCO3 21.4 mmol/L (22.0-26.0); Arterial MetHb 0.3 % (0.0-1.5); Arterial pCO2 27.2 mmhg (35-45); MODE ROOM AIR; Site Right Radial
[2017-08-31 16:39] LABS: ANION GAP 14 (8-16); BLOOD UREA NITROGEN 29 mg/dl (7-20); CALCIUM 9.3 mg/dl (8.4-10.2); CARBON DIOXIDE 25 mmol/L (21-31); CHLORIDE 109 mmol/L (97-110); CREATININE 1.45 mg/dl (0.61-1.24); GLUCOSE 109 mg/dl (70-220); POTASSIUM 3.9 mmol/L (3.5-5.1); SODIUM 144 mmol/L (135-144)
[2017-08-31] MEDS: FUROSEMIDE 40 MG INJ IV (17:11)
[2017-08-31] MEDS: LATANOPROST 0.005% 2.5 ML OPH BOTH EYES (20:30)
[2017-08-31] MEDS: ZOLPIDEM 5 MG TAB PO (20:45)
[2017-08-31] MEDS ORDERED: LATANOPROST 0.005% 2.5 ML OPH BOTH EYES (21:00)
[2017-09-01] MEDS: ACCU-CHEK XX (02:00)
[2017-09-01] MEDS: LEVALBUTEROL (NEB) 0.63 MG/3 ML AMP HHN ×6 (04:54→20:04)
[2017-09-01] MEDS: FUROSEMIDE 40 MG INJ IV ×2 (05:33→17:37)
[2017-09-01] MEDS: PANTOPRAZOLE 40 MG INJ IV (05:34)
[2017-09-01] MEDS: LEVOTHYROXINE 88 MCG TAB PO (06:38)
[2017-09-01 07:51] LABS: HDL CHOLESTEROL 37 mg/dl (31-75); LDL CHOLESTEROL,CALCULATED 63 mg/dl; TRIGLYCERIDES 64 mg/dl (0-149)
[2017-09-01 07:51] LABS: CHOLESTEROL 113 mg/dl (100-200)
[2017-09-01] MEDS: INSULIN ASPART [NOVOLOG] 3 ML PEN SC ×4 (07:55→21:00)
[2017-09-01] MEDS: ASPIRIN 81 MG TAB PO (09:12)
[2017-09-01] MEDS: LINAGLIPTIN 5 MG TABLET PO (09:13)
[2017-09-01] MEDS: ISOSORBIDE MONONITRATE(SR)60 MG TAB PO (09:13)
[2017-09-01] MEDS: ALLOPURINOL 100 MG TAB PO (09:13)
[2017-09-01] MEDS: TICAGRELOR 90 MG TABLET PO ×2 (09:15→21:33)
[2017-09-01] MEDS: ENOXAPARIN 30 MG/0.3 ML SYG SC (09:21)
[2017-09-01] MEDS: ZOLPIDEM 5 MG TAB PO (21:18)
[2017-09-01] MEDS: LATANOPROST 0.005% 2.5 ML OPH BOTH EYES (21:19)
[2017-09-01] MEDS: PATIENT'S OWN MEDICATION PO (21:20)
[2017-09-02] MEDS: LEVALBUTEROL (NEB) 0.63 MG/3 ML AMP HHN ×6 (00:48→19:55)
[2017-09-02] MEDS: ACCU-CHEK XX (02:00)
[2017-09-02] MEDS: PANTOPRAZOLE 40 MG INJ IV (06:33)
[2017-09-02] MEDS: LEVOTHYROXINE 88 MCG TAB PO (06:33)
[2017-09-02] MEDS: FUROSEMIDE 40 MG INJ IV ×2 (06:33→18:03)
[2017-09-02 07:29] LABS: ANION GAP 15 (8-16); BLOOD UREA NITROGEN 28 mg/dl (7-20); CALCIUM 8.6 mg/dl (8.4-10.2); CARBON DIOXIDE 25 mmol/L (21-31); CHLORIDE 109 mmol/L (97-110); CREATININE 1.41 mg/dl (0.61-1.24); GLUCOSE 107 mg/dl (70-220); SODIUM 146 mmol/L (135-144)
[2017-09-02] MEDS: INSULIN ASPART [NOVOLOG] 3 ML PEN SC ×4 (07:55→21:00)
[2017-09-02] MEDS: LINAGLIPTIN 5 MG TABLET PO (09:13)
[2017-09-02] MEDS: PATIENT'S OWN MEDICATION PO ×2 (09:13→21:17)
[2017-09-02] MEDS: ISOSORBIDE MONONITRATE(SR)60 MG TAB PO (09:13)
[2017-09-02] MEDS: ALLOPURINOL 100 MG TAB PO (09:14)
[2017-09-02] MEDS: ASPIRIN 81 MG TAB PO (09:14)
[2017-09-02] MEDS: TICAGRELOR 90 MG TABLET PO ×2 (09:19→21:19)
[2017-09-02] MEDS: ENOXAPARIN 30 MG/0.3 ML SYG SC (09:19)
[2017-09-02] MEDS: POTASSIUM CHLORIDE (SR) 20 MEQ TAB PO (19:04)
[2017-09-02] MEDS: LATANOPROST 0.005% 2.5 ML OPH BOTH EYES (21:16)
[2017-09-03] MEDS: LEVALBUTEROL (NEB) 0.63 MG/3 ML AMP HHN ×6 (01:31→21:22)
[2017-09-03] MEDS: ACCU-CHEK XX (02:00)
[2017-09-03] MEDS: LEVOTHYROXINE 88 MCG TAB PO (07:46)
[2017-09-03] MEDS: PANTOPRAZOLE 40 MG INJ IV (07:49)
[2017-09-03] MEDS: FUROSEMIDE 40 MG INJ IV ×2 (07:49→17:02)
[2017-09-03] MEDS: INSULIN ASPART [NOVOLOG] 3 ML PEN SC ×4 (07:55→21:00)
[2017-09-03] MEDS: ISOSORBIDE MONONITRATE(SR)60 MG TAB PO (08:29)
[2017-09-03] MEDS: ALLOPURINOL 100 MG TAB PO (08:30)
[2017-09-03] MEDS: ASPIRIN 81 MG TAB PO (08:30)
[2017-09-03] MEDS: LINAGLIPTIN 5 MG TABLET PO (08:30)
[2017-09-03] MEDS: TICAGRELOR 90 MG TABLET PO ×2 (08:41→21:54)
[2017-09-03] MEDS: ENOXAPARIN 30 MG/0.3 ML SYG SC (08:41)
[2017-09-03] MEDS: PATIENT'S OWN MEDICATION PO ×2 (10:39→21:56)
[2017-09-03] MEDS: LATANOPROST 0.005% 2.5 ML OPH BOTH EYES (21:51)
[2017-09-03] MEDS: ZOLPIDEM 5 MG TAB PO (21:56)
[2017-09-04] MEDS: LEVALBUTEROL (NEB) 0.63 MG/3 ML AMP HHN ×5 (01:32→17:00)
[2017-09-04] MEDS: ACCU-CHEK XX (02:00)
[2017-09-04] MEDS: PANTOPRAZOLE 40 MG INJ IV (06:34)
[2017-09-04] MEDS: LEVOTHYROXINE 88 MCG TAB PO (06:36)
[2017-09-04] MEDS: FUROSEMIDE 40 MG INJ IV ×2 (06:36→18:09)
[2017-09-04 07:55] LABS: ANION GAP 16 (8-16); BLOOD UREA NITROGEN 36 mg/dl (7-20); CALCIUM 9.3 mg/dl (8.4-10.2); CARBON DIOXIDE 25 mmol/L (21-31); CHLORIDE 107 mmol/L (97-110); CREATININE 1.67 mg/dl (0.61-1.24); GLUCOSE 119 mg/dl (70-220); POTASSIUM 3.4 mmol/L (3.5-5.1); SODIUM 145 mmol/L (135-144)
[2017-09-04] MEDS: INSULIN ASPART [NOVOLOG] 3 ML PEN SC ×3 (07:55→17:55)
[2017-09-04] MEDS: LINAGLIPTIN 5 MG TABLET PO (08:25)
[2017-09-04] MEDS: ASPIRIN 81 MG TAB PO (08:25)
[2017-09-04] MEDS: ALLOPURINOL 100 MG TAB PO (08:25)
[2017-09-04] MEDS: ISOSORBIDE MONONITRATE(SR)60 MG TAB PO (08:26)
[2017-09-04] MEDS: TICAGRELOR 90 MG TABLET PO (08:33)
[2017-09-04] MEDS: ENOXAPARIN 30 MG/0.3 ML SYG SC (08:33)
[2017-09-04] MEDS: PATIENT'S OWN MEDICATION PO (09:00)
[2017-09-04] MEDS: POTASSIUM CHLORIDE (SR) 20 MEQ TAB PO (11:07)
[2017-09-04 12:18] LABS: ALANINE AMINOTRANSFERASE 47 IU/L (13-69); ALBUMIN 3.9 g/dl (3.3-4.9); ALKALINE PHOSPHATASE 205 IU/L (42-121); ASPARTATE AMINO TRANSFERASE 24 IU/L (15-46); BILIRUBIN,INDIRECT 0.1 mg/dl (0-1.1); BILIRUBIN,TOTAL 0.1 mg/dl (0.2-1.3); TOTAL PROTEIN 7.6 g/dl (6.1-8.1)
== END 2017-09-04 19:20 | disposition home or self-care (01) | DRG 291 ==
LOC: E/R 09:45 → TEL 15:21
PROC: 4A033R1 Measurement of Arterial Saturation, Peripheral, Percutaneous Approach (ICD-10-PCS; principal; 2017-08-30)
DX: I13.0 Hypertensive heart and chronic kidney disease with heart failure and stage 1 through stage 4 chronic kidney disease, or unspecified chronic kidney disease (principal); I50.23 Acute on chronic systolic (congestive) heart failure; E11.22 Type 2 diabetes mellitus with diabetic chronic kidney disease; J44.9 Chronic obstructive pulmonary disease, unspecified; I25.2 Old myocardial infarction; I25.10 Atherosclerotic heart disease of native coronary artery without angina pectoris; I25.5 Ischemic cardiomyopathy; E03.9 Hypothyroidism, unspecified; N18.9 Chronic kidney disease, unspecified; Z95.0 Presence of cardiac pacemaker; Z95.5 Presence of coronary angioplasty implant and graft; Z79.4 Long term (current) use of insulin; Z79.82 Long term (current) use of aspirin; Z95.2 Presence of prosthetic heart valve
CPT/HCPCS: 36415; 36600; 71045; 80048; 80061; 80076; 81003; 82550; 82553; 82803; 82962; 83880; 84484; 85025; 93005; 94640; 94664; 99217; 99285-25; G0378

== ENCOUNTER 2017-09-15 10:03 | Inpatient (IN) | payer MEDICARE, OTHER ==
[2017-09-15] MEDS: NITROGLYCERIN 2% 1 GM OINT PKT TD (10:50)
[2017-09-15] MEDS: FUROSEMIDE 40 MG INJ IV (10:51)
[2017-09-15] MEDS: ASPIRIN 81 MG TAB PO (10:51)
[2017-09-15] MEDS: NITROGLYCERIN (SL) 0.4 MG TAB SL (10:51)
[2017-09-15 11:11] LABS: ADD MAN DIFF? NO
[2017-09-15 11:12] LABS: BASOPHILS % 0.2 % (0.0-2.0); EOSINOPHILS # 0.1 10^3/ul (0.0-0.5); EOSINOPHILS % 0.9 % (0.0-7.0); HEMATOCRIT 27.6 % (42.0-52.0); HEMOGLOBIN 8.8 g/dl (14.0-18.0); LYMPHOCYTES # 1.2 10^3/ul (0.8-2.9); LYMPHOCYTES % 22.6 % (15.0-51.0); MEAN CORPUSCULAR HEMOGLOBIN 27.2 pg (29.0-33.0); MEAN CORPUSCULAR HGB CONC 31.9 g/dl (32.0-37.0); MEAN CORPUSCULAR VOLUME 85.2 fl (82.0-101.0); MEAN PLATELET VOLUME 10.8 fl (7.4-10.4); MONOCYTE # 0.2 10^3/ul (0.3-0.9); MONOCYTES % 4.1 % (0.0-11.0); NEUTROPHIL # 3.7 10^3/ul (1.6-7.5); NEUTROPHILS % 68.9 % (39.0-77.0); PLATELET COUNT 163 10^3/UL (140-415); RED BLOOD COUNT 3.24 10^6/ul (4.70-6.10); RED CELL DISTRIBUTION WIDTH 18.8 % (11.5-14.5)
[2017-09-15 11:12] LABS: WHITE BLOOD COUNT 5.4 10^3/ul (4.8-10.8)
[2017-09-15 11:36] LABS: ANION GAP 14 (8-16); BLOOD UREA NITROGEN 28 mg/dl (7-20); CALCIUM 8.8 mg/dl (8.4-10.2); CARBON DIOXIDE 26 mmol/L (21-31); CHLORIDE 110 mmol/L (97-110); CREATININE 1.63 mg/dl (0.61-1.24); GLUCOSE 134 mg/dl (70-220); POTASSIUM 3.8 mmol/L (3.5-5.1); SODIUM 146 mmol/L (135-144)
[2017-09-15 11:48] LABS: TROPONIN-I 0.033 ng/ml (0.00-0.12)
[2017-09-15] MEDS ORDERED: ONDANSETRON 4 MG INJ IV ×2 (13:00→17:30)
[2017-09-15] MEDS ORDERED: ACETAMINOPHEN 325 MG TAB PO (13:00)
[2017-09-15] MEDS: [UNRECOGNIZED DRUG - REMARK] XX (17:30)
[2017-09-15] MEDS ORDERED: DOCUSATE SODIUM 100 MG CAP PO (17:30)
[2017-09-15] MEDS ORDERED: GLUCOSE GEL 15 GRAM TUBE PO ×2 (17:30)
[2017-09-15] MEDS ORDERED: ACETAMINOPHEN 650 MG SUPP PR (17:30)
[2017-09-15] MEDS ORDERED: MAGNESIUM HYDROXIDE 30ML CUP PO (17:30)
[2017-09-15] MEDS ORDERED: BISACODYL (EC) 5 MG TAB PO (17:30)
[2017-09-15] MEDS ORDERED: NACL 0.9% 3 ML SYG IV (17:30)
[2017-09-15] MEDS ORDERED: DEXTROSE 50% 50 ML SYRINGE IV ×2 (17:30)
[2017-09-15] MEDS ORDERED: GLUCAGON 1 MG INJ IM (17:30)
[2017-09-15] MEDS ORDERED: GLUCOSE GEL 15 GRAM TUBE BUCCAL (17:30)
[2017-09-15 19:32] LABS: CREATINE KINASE 32 IU/L (23-200)
[2017-09-15] MEDS: INSULIN ASPART [NOVOLOG] 3 ML PEN SC ×2 (19:41→23:15)
[2017-09-15 19:45] LABS: CK INDEX 1.4; TROPONIN-I 0.026 ng/ml (0.00-0.12)
[2017-09-15 19:46] LABS: CK-MB 0.45 ng/ml (0.0-2.4)
[2017-09-15] MEDS ORDERED: [UNRECOGNIZED DRUG - OTHER] PO (21:00)
[2017-09-15] MEDS ORDERED: VALSARTAN PO (21:00)
[2017-09-15] MEDS ORDERED: SACUBITRIL PO (21:00)
[2017-09-15] MEDS: ATORVASTATIN 20 MG TAB PO (23:06)
[2017-09-15] MEDS: TICAGRELOR 90 MG TABLET PO (23:27)
[2017-09-16 01:01] LABS: CREATINE KINASE 30 IU/L (23-200)
[2017-09-16 01:14] LABS: CK INDEX 1.6; CK-MB 0.49 ng/ml (0.0-2.4); TROPONIN-I 0.032 ng/ml (0.00-0.12)
[2017-09-16] MEDS: [UNRECOGNIZED DRUG - REMARK] XX ×3 (01:30→17:24)
[2017-09-16] MEDS: ACCU-CHEK XX (01:41)
[2017-09-16] MEDS: LEVOTHYROXINE 88 MCG TAB PO (06:09)
[2017-09-16 07:51] LABS: ADD MAN DIFF? NO
[2017-09-16 07:57] LABS: BASOPHILS % 0.2 % (0.0-2.0); EOSINOPHILS # 0.1 10^3/ul (0.0-0.5); EOSINOPHILS % 1.5 % (0.0-7.0); HEMATOCRIT 26.9 % (42.0-52.0); HEMOGLOBIN 8.8 g/dl (14.0-18.0); LYMPHOCYTES # 1.4 10^3/ul (0.8-2.9); LYMPHOCYTES % 25.3 % (15.0-51.0); MEAN CORPUSCULAR HEMOGLOBIN 27.5 pg (29.0-33.0); MEAN CORPUSCULAR HGB CONC 32.7 g/dl (32.0-37.0); MEAN CORPUSCULAR VOLUME 84.1 fl (82.0-101.0); MEAN PLATELET VOLUME 10.6 fl (7.4-10.4); MONOCYTE # 0.3 10^3/ul (0.3-0.9); MONOCYTES % 6.3 % (0.0-11.0); NEUTROPHIL # 3.4 10^3/ul (1.6-7.5); NEUTROPHILS % 63.7 % (39.0-77.0); PLATELET COUNT 158 10^3/UL (140-415); RED CELL DISTRIBUTION WIDTH 18.6 % (11.5-14.5)
[2017-09-16 07:57] LABS: WHITE BLOOD COUNT 5.4 10^3/ul (4.8-10.8)
[2017-09-16] MEDS ORDERED: GLIMEPIRIDE 2 MG TAB PO (08:00)
[2017-09-16] MEDS: INSULIN ASPART [NOVOLOG] 3 ML PEN SC ×4 (08:00→21:00)
[2017-09-16 08:21] LABS: ALANINE AMINOTRANSFERASE 26 IU/L (13-69); ALBUMIN 3.9 g/dl (3.3-4.9); ALBUMIN/GLOBULIN RATIO 1.18; ALKALINE PHOSPHATASE 131 IU/L (42-121); ANION GAP 18 (8-16); ASPARTATE AMINO TRANSFERASE 23 IU/L (15-46); BILIRUBIN,INDIRECT 0.5 mg/dl (0-1.1); BILIRUBIN,TOTAL 0.5 mg/dl (0.2-1.3); BLOOD UREA NITROGEN 27 mg/dl (7-20); CALCIUM 9.1 mg/dl (8.4-10.2); CARBON DIOXIDE 26 mmol/L (21-31); CHLORIDE 110 mmol/L (97-110); CREATININE 1.38 mg/dl (0.61-1.24); GLUCOSE 115 mg/dl (70-220); POTASSIUM 3.7 mmol/L (3.5-5.1); SODIUM 150 mmol/L (135-144); TOTAL PROTEIN 7.2 g/dl (6.1-8.1)
[2017-09-16] MEDS: ISOSORBIDE MONONITRATE(SR)60 MG TAB PO (09:31)
[2017-09-16] MEDS: ALLOPURINOL 100 MG TAB PO (09:31)
[2017-09-16] MEDS: ASPIRIN (EC) 81 MG TAB PO (09:31)
[2017-09-16] MEDS: LINAGLIPTIN 5 MG TABLET PO (09:31)
[2017-09-16] MEDS: FUROSEMIDE 40 MG INJ IV (09:32)
[2017-09-16] MEDS: TICAGRELOR 90 MG TABLET PO ×2 (09:32→21:54)
[2017-09-16] MEDS: ENOXAPARIN 30 MG/0.3 ML SYG SC (09:33)
[2017-09-16 17:26] LABS: B-TYPE NATRIURETIC PEPTIDE 6950 PG/ML (0-450)
[2017-09-16 17:48] LABS: THYROID STIMULATING HORMONE 0.939 MIU/L (0.465-4.680)
[2017-09-16] MEDS: GUAIFENESIN/DM 5ML CUP PO (18:42)
[2017-09-16] MEDS: ATORVASTATIN 20 MG TAB PO (21:52)
[2017-09-16] MEDS: ACETAMINOPHEN 325 MG TAB PO (21:53)
[2017-09-17] MEDS: ACCU-CHEK XX (02:00)
[2017-09-17] MEDS: VALSARTAN PO ×3 (05:31→20:58)
[2017-09-17] MEDS: SACUBITRIL PO ×3 (05:31→20:58)
[2017-09-17] MEDS: LEVOTHYROXINE 88 MCG TAB PO (06:51)
[2017-09-17] MEDS: INSULIN ASPART [NOVOLOG] 3 ML PEN SC ×4 (08:00→21:00)
[2017-09-17 08:26] LABS: CREATINE KINASE 29 IU/L (23-200)
[2017-09-17 08:28] LABS: ANION GAP 14 (8-16); BLOOD UREA NITROGEN 28 mg/dl (7-20); CALCIUM 8.9 mg/dl (8.4-10.2); CARBON DIOXIDE 25 mmol/L (21-31); CHLORIDE 110 mmol/L (97-110); CREATININE 1.41 mg/dl (0.61-1.24); GLUCOSE 105 mg/dl (70-220); POTASSIUM 3.6 mmol/L (3.5-5.1); SODIUM 145 mmol/L (135-144)
[2017-09-17 08:35] LABS: CK INDEX 1.7
[2017-09-17 08:51] LABS: CK-MB 0.48 ng/ml (0.0-2.4); TROPONIN-I < 0.012 ng/ml (0.00-0.12)
[2017-09-17] MEDS: ASPIRIN (EC) 81 MG TAB PO (09:14)
[2017-09-17] MEDS: TICAGRELOR 90 MG TABLET PO ×2 (09:15→21:03)
[2017-09-17] MEDS: LINAGLIPTIN 5 MG TABLET PO (09:16)
[2017-09-17] MEDS: ENOXAPARIN 30 MG/0.3 ML SYG SC (09:16)
[2017-09-17] MEDS: ALLOPURINOL 100 MG TAB PO (09:17)
[2017-09-17] MEDS: ISOSORBIDE MONONITRATE(SR)60 MG TAB PO (09:17)
[2017-09-17] MEDS: FUROSEMIDE 40 MG INJ IV ×2 (09:17→18:33)
[2017-09-17] MEDS ORDERED: ALBUTEROL/IPRATROPIUM (NEB) 3 ML AMP HHN (18:30)
[2017-09-17] MEDS: DIGOXIN 500 MCG INJ IV (18:37)
[2017-09-17] MEDS: LATANOPROST 0.005% 2.5 ML OPH BOTH EYES (20:57)
[2017-09-17] MEDS: ATORVASTATIN 20 MG TAB PO (20:58)
[2017-09-18] MEDS: ACCU-CHEK XX (02:00)
[2017-09-18] MEDS: LEVOTHYROXINE 88 MCG TAB PO (06:20)
[2017-09-18] MEDS: FUROSEMIDE 40 MG INJ IV ×2 (06:20→18:01)
[2017-09-18] MEDS: INSULIN ASPART [NOVOLOG] 3 ML PEN SC ×4 (08:00→21:00)
[2017-09-18] MEDS: LINAGLIPTIN 5 MG TABLET PO (09:10)
[2017-09-18] MEDS: ISOSORBIDE MONONITRATE(SR)60 MG TAB PO (09:10)
[2017-09-18] MEDS: ALLOPURINOL 100 MG TAB PO (09:11)
[2017-09-18] MEDS: SACUBITRIL PO ×2 (09:11→21:11)
[2017-09-18] MEDS: VALSARTAN PO ×2 (09:11→21:11)
[2017-09-18] MEDS: ASPIRIN (EC) 81 MG TAB PO (09:11)
[2017-09-18] MEDS: TICAGRELOR 90 MG TABLET PO ×2 (09:11→21:17)
[2017-09-18] MEDS: ENOXAPARIN 30 MG/0.3 ML SYG SC (09:13)
[2017-09-18] MEDS: LATANOPROST 0.005% 2.5 ML OPH BOTH EYES (21:13)
[2017-09-18] MEDS: ATORVASTATIN 20 MG TAB PO (21:13)
[2017-09-19] MEDS: ACCU-CHEK XX (01:53)
[2017-09-19] MEDS: FUROSEMIDE 40 MG INJ IV ×2 (05:39→17:17)
[2017-09-19] MEDS: LEVOTHYROXINE 88 MCG TAB PO (06:40)
[2017-09-19 07:01] LABS: AADO2 Arterial 3.7 mmHg (7.0-24.0); Allen Test ACCEPTAB; Arterial Base Excess 0.6 mmol/L (-3.0-3); Arterial COHb 0.3 % (0.0-3.0); Arterial Fraction of Oxyhgb 97.5 % (93.0-99.0); Arterial HCO3 23.3 mmol/L (22.0-26.0); Arterial MetHb 0.2 % (0.0-1.5); Arterial pCO2 30.7 mmhg (35-45); MODE ROOM AIR; Site Left Radial
[2017-09-19] MEDS: INSULIN ASPART [NOVOLOG] 3 ML PEN SC ×4 (07:57→21:00)
[2017-09-19 08:29] LABS: ADD MAN DIFF? NO
[2017-09-19 08:36] LABS: WHITE BLOOD COUNT 3.6 10^3/ul (4.8-10.8)
[2017-09-19 08:36] LABS: BASOPHILS % 0.3 % (0.0-2.0); EOSINOPHILS # 0.1 10^3/ul (0.0-0.5); EOSINOPHILS % 1.9 % (0.0-7.0); HEMATOCRIT 25.8 % (42.0-52.0); HEMOGLOBIN 8.4 g/dl (14.0-18.0); LYMPHOCYTES # 0.9 10^3/ul (0.8-2.9); LYMPHOCYTES % 25.5 % (15.0-51.0); MEAN CORPUSCULAR HEMOGLOBIN 26.9 pg (29.0-33.0); MEAN CORPUSCULAR HGB CONC 32.6 g/dl (32.0-37.0); MEAN CORPUSCULAR VOLUME 82.7 fl (82.0-101.0); MEAN PLATELET VOLUME 10.9 fl (7.4-10.4); MONOCYTE # 0.3 10^3/ul (0.3-0.9); MONOCYTES % 6.9 % (0.0-11.0); NEUTROPHIL # 2.3 10^3/ul (1.6-7.5); NEUTROPHILS % 63.8 % (39.0-77.0); PLATELET COUNT 149 10^3/UL (140-415); RED BLOOD COUNT 3.12 10^6/ul (4.70-6.10); RED CELL DISTRIBUTION WIDTH 17.9 % (11.5-14.5)
[2017-09-19 08:50] LABS: ANION GAP 15 (8-16); BLOOD UREA NITROGEN 32 mg/dl (7-20); CALCIUM 8.8 mg/dl (8.4-10.2); CARBON DIOXIDE 26 mmol/L (21-31); CHLORIDE 106 mmol/L (97-110); CREATININE 1.57 mg/dl (0.61-1.24); GLUCOSE 125 mg/dl (70-220); POTASSIUM 3.4 mmol/L (3.5-5.1); SODIUM 144 mmol/L (135-144)
[2017-09-19 09:04] LABS: MAGNESIUM 2.1 mg/dl (1.7-2.5)
[2017-09-19] MEDS: ALLOPURINOL 100 MG TAB PO (09:08)
[2017-09-19] MEDS: VALSARTAN PO ×2 (09:08→21:20)
[2017-09-19] MEDS: SACUBITRIL PO ×2 (09:08→21:20)
[2017-09-19] MEDS: ISOSORBIDE MONONITRATE(SR)60 MG TAB PO (09:09)
[2017-09-19] MEDS: LINAGLIPTIN 5 MG TABLET PO (09:09)
[2017-09-19] MEDS: TICAGRELOR 90 MG TABLET PO ×2 (09:09→21:25)
[2017-09-19] MEDS: ASPIRIN (EC) 81 MG TAB PO (09:09)
[2017-09-19] MEDS: ENOXAPARIN 30 MG/0.3 ML SYG SC (09:18)
[2017-09-19] MEDS: POTASSIUM CHLORIDE 100 ML IVPB ×2 (11:00→13:08)
[2017-09-19] MEDS: POTASSIUM CHLORIDE (SR) 20 MEQ TAB PO (14:34)
[2017-09-19] MEDS: LATANOPROST 0.005% 2.5 ML OPH BOTH EYES (21:00)
[2017-09-19] MEDS: ATORVASTATIN 20 MG TAB PO (21:20)
[2017-09-20] MEDS: ACCU-CHEK XX (02:00)
[2017-09-20] MEDS: FUROSEMIDE 40 MG INJ IV ×2 (06:23→17:45)
[2017-09-20] MEDS: LEVOTHYROXINE 88 MCG TAB PO (06:23)
[2017-09-20] MEDS: INSULIN ASPART [NOVOLOG] 3 ML PEN SC ×4 (08:00→21:00)
[2017-09-20] MEDS ORDERED: FUROSEMIDE 40 MG INJ IV (09:00)
[2017-09-20] MEDS: ASPIRIN (EC) 81 MG TAB PO (09:43)
[2017-09-20] MEDS: LINAGLIPTIN 5 MG TABLET PO (09:43)
[2017-09-20] MEDS: ISOSORBIDE MONONITRATE(SR)60 MG TAB PO (09:44)
[2017-09-20] MEDS: ALLOPURINOL 100 MG TAB PO (09:44)
[2017-09-20] MEDS: VALSARTAN PO ×2 (09:45→21:18)
[2017-09-20] MEDS: SACUBITRIL PO ×2 (09:45→21:18)
[2017-09-20] MEDS: ENOXAPARIN 30 MG/0.3 ML SYG SC (09:46)
[2017-09-20] MEDS: TICAGRELOR 90 MG TABLET PO ×2 (09:46→21:15)
[2017-09-20 10:21] LABS: ANION GAP 15 (8-16); BLOOD UREA NITROGEN 35 mg/dl (7-20); CARBON DIOXIDE 24 mmol/L (21-31); CHLORIDE 109 mmol/L (97-110); CREATININE 1.56 mg/dl (0.61-1.24); GLUCOSE 169 mg/dl (70-220); POTASSIUM 3.8 mmol/L (3.5-5.1); SODIUM 144 mmol/L (135-144)
[2017-09-20] MEDS: ATORVASTATIN 20 MG TAB PO (21:16)
[2017-09-20] MEDS: LATANOPROST 0.005% 2.5 ML OPH BOTH EYES (21:17)
[2017-09-21] MEDS: ACCU-CHEK XX (02:00)
[2017-09-21] MEDS: FUROSEMIDE 40 MG INJ IV (06:36)
[2017-09-21] MEDS: LEVOTHYROXINE 88 MCG TAB PO (06:39)
[2017-09-21] MEDS: INSULIN ASPART [NOVOLOG] 3 ML PEN SC ×2 (08:00→12:30)
[2017-09-21 08:34] LABS: ANION GAP 12 (8-16); BLOOD UREA NITROGEN 34 mg/dl (7-20); CALCIUM 9.1 mg/dl (8.4-10.2); CARBON DIOXIDE 27 mmol/L (21-31); CHLORIDE 108 mmol/L (97-110); CREATININE 1.58 mg/dl (0.61-1.24); GLUCOSE 123 mg/dl (70-220); POTASSIUM 3.5 mmol/L (3.5-5.1); SODIUM 143 mmol/L (135-144)
[2017-09-21] MEDS: ISOSORBIDE MONONITRATE(SR)60 MG TAB PO (09:00)
[2017-09-21] MEDS: ASPIRIN (EC) 81 MG TAB PO (09:00)
[2017-09-21] MEDS: ALLOPURINOL 100 MG TAB PO (09:01)
[2017-09-21] MEDS: ENOXAPARIN 30 MG/0.3 ML SYG SC (09:01)
[2017-09-21] MEDS: TICAGRELOR 90 MG TABLET PO (09:01)
[2017-09-21] MEDS: LINAGLIPTIN 5 MG TABLET PO (09:01)
[2017-09-21] MEDS: VALSARTAN PO (09:02)
[2017-09-21] MEDS: SACUBITRIL PO (09:02)
[2017-09-21 10:26] LABS: ADD MAN DIFF? NO
[2017-09-21 10:31] LABS: WHITE BLOOD COUNT 4.4 10^3/ul (4.8-10.8)
[2017-09-21 10:31] LABS: BASOPHILS % 0.2 % (0.0-2.0); EOSINOPHILS # 0.1 10^3/ul (0.0-0.5); EOSINOPHILS % 2.3 % (0.0-7.0); HEMATOCRIT 25.6 % (42.0-52.0); HEMOGLOBIN 8.3 g/dl (14.0-18.0); LYMPHOCYTES # 1.3 10^3/ul (0.8-2.9); LYMPHOCYTES % 29.8 % (15.0-51.0); MEAN CORPUSCULAR HEMOGLOBIN 26.8 pg (29.0-33.0); MEAN CORPUSCULAR HGB CONC 32.4 g/dl (32.0-37.0); MEAN CORPUSCULAR VOLUME 82.6 fl (82.0-101.0); MEAN PLATELET VOLUME 11.9 fl (7.4-10.4); MONOCYTE # 0.3 10^3/ul (0.3-0.9); MONOCYTES % 7.2 % (0.0-11.0); NEUTROPHIL # 2.5 10^3/ul (1.6-7.5); NEUTROPHILS % 57.1 % (39.0-77.0); PLATELET COUNT 171 10^3/UL (140-415); RED CELL DISTRIBUTION WIDTH 18.2 % (11.5-14.5)
== END 2017-09-21 13:02 | disposition home health service (06) | DRG 291 ==
LOC: E/R 10:03 → MS3 12:55 → MS4 21:26
PROC: 4A033R1 Measurement of Arterial Saturation, Peripheral, Percutaneous Approach (ICD-10-PCS; principal; 2017-09-19)
DX: I13.0 Hypertensive heart and chronic kidney disease with heart failure and stage 1 through stage 4 chronic kidney disease, or unspecified chronic kidney disease (principal); I50.23 Acute on chronic systolic (congestive) heart failure; E87.0 Hyperosmolality and hypernatremia; I42.9 Cardiomyopathy, unspecified; E11.21 Type 2 diabetes mellitus with diabetic nephropathy; E11.22 Type 2 diabetes mellitus with diabetic chronic kidney disease; I44.7 Left bundle-branch block, unspecified; E03.9 Hypothyroidism, unspecified; N18.9 Chronic kidney disease, unspecified; Z79.84 Long term (current) use of oral hypoglycemic drugs; Z79.82 Long term (current) use of aspirin; Z95.810 Presence of automatic (implantable) cardiac defibrillator; Z95.5 Presence of coronary angioplasty implant and graft; Z87.891 Personal history of nicotine dependence; Z95.2 Presence of prosthetic heart valve
CPT/HCPCS: 36415; 36600; 71045; 78582; 80048; 80053; 82550; 82553; 82803; 82962; 83735; 83880; 84100; 84443; 84484; 85025; 87081; 93005; 93306; 96374; 99285-25; G0378

== ENCOUNTER 2017-10-18 11:35 | Inpatient (IN) | payer MEDICARE, OTHER ==
[2017-10-18 12:34] LABS: ADD MAN DIFF? NO
[2017-10-18 12:42] LABS: BASOPHILS % 0.3 % (0.0-2.0); EOSINOPHILS # 0.1 10^3/ul (0.0-0.5); HEMATOCRIT 32.8 % (42.0-52.0); HEMOGLOBIN 10.7 g/dl (14.0-18.0); LYMPHOCYTES # 1.4 10^3/ul (0.8-2.9); LYMPHOCYTES % 23.2 % (15.0-51.0); MEAN CORPUSCULAR HEMOGLOBIN 27.3 pg (29.0-33.0); MEAN CORPUSCULAR HGB CONC 32.6 g/dl (32.0-37.0); MEAN CORPUSCULAR VOLUME 83.7 fl (82.0-101.0); MONOCYTE # 0.3 10^3/ul (0.3-0.9); MONOCYTES % 5.1 % (0.0-11.0); NEUTROPHIL # 4.2 10^3/ul (1.6-7.5); NEUTROPHILS % 67.6 % (39.0-77.0); PLATELET COUNT 166 10^3/UL (140-415); RED BLOOD COUNT 3.92 10^6/ul (4.70-6.10); RED CELL DISTRIBUTION WIDTH 17.5 % (11.5-14.5)
[2017-10-18 12:42] LABS: WHITE BLOOD COUNT 6.1 10^3/ul (4.8-10.8)
[2017-10-18 12:59] LABS: ANION GAP 21 (8-16); BLOOD UREA NITROGEN 53 mg/dl (7-20); CALCIUM 9.2 mg/dl (8.4-10.2); CARBON DIOXIDE 23 mmol/L (21-31); CHLORIDE 107 mmol/L (97-110); CREATININE 2.07 mg/dl (0.61-1.24); GLUCOSE 236 mg/dl (70-220); POTASSIUM 5.4 mmol/L (3.5-5.1); SODIUM 146 mmol/L (135-144)
[2017-10-18 13:04] LABS: INR 1.07; PT RATIO 1.1
[2017-10-18 13:11] LABS: B-TYPE NATRIURETIC PEPTIDE 1240 PG/ML (0-450)
[2017-10-18 13:15] LABS: TROPONIN-I < 0.012 ng/ml (0.00-0.12)
[2017-10-18 13:42] LABS: THYROID STIMULATING HORMONE 0.517 MIU/L (0.465-4.680)
[2017-10-18 13:45] LABS: FREE T4 (FREE THYROXINE) 1.88 ng/dl (0.85-1.93)
[2017-10-18] MEDS ORDERED: ONDANSETRON 4 MG INJ IV ×2 (14:00→18:30)
[2017-10-18] MEDS ORDERED: ACETAMINOPHEN 325 MG TAB PO ×2 (14:00→18:30)
[2017-10-18] MEDS ORDERED: DOCUSATE SODIUM 100 MG CAP PO (18:30)
[2017-10-18] MEDS ORDERED: HYDROCODONE/APAP (5/325) TAB PO (18:30)
[2017-10-18] MEDS ORDERED: NACL 0.9% 3 ML SYG IV (18:30)
[2017-10-18] MEDS: FAMOTIDINE 20 MG INJ IV (21:02)
[2017-10-18] MEDS: NA POLYST SULFON 15 GM/60 ML BTL PO (21:02)
[2017-10-18] MEDS: TICAGRELOR 90 MG TABLET PO (21:05)
[2017-10-19 01:13] LABS: CREATINE KINASE 34 IU/L (23-200)
[2017-10-19 01:27] LABS: CK INDEX 2.6
[2017-10-19 01:32] LABS: TROPONIN-I < 0.012 ng/ml (0.00-0.12)
[2017-10-19 02:11] LABS: ADD UMIC NO; UR ASCORBIC ACID 20 mg/dL (NEGATIVE); UR BILIRUBIN (Dip) NEGATIVE (NEGATIVE); UR BLOOD (Dip) NEGATIVE (NEGATIVE); UR CLARITY CLEAR (CLEAR); UR COLOR YELLOW (YELLOW); UR GLUCOSE (Dip) NEGATIVE (NEGATIVE); UR KETONES (Dip) NEGATIVE (NEGATIVE); UR LEUKOCYTE ESTERASE (Dip) NEGATIVE Leu/ul (NEGATIVE); UR NITRITE (Dip) NEGATIVE (NEGATIVE); UR SPECIFIC GRAVITY (Dip) 1.012 (1.003-1.030); UR TOTAL PROTEIN (Dip) NEGATIVE (NEGATIVE); UR UROBILINOGEN (Dip) NEGATIVE (NEGATIVE)
[2017-10-19 02:12] LABS: SODIUM,URINE RANDOM 57 mmol/L (30-90)
[2017-10-19] MEDS: LEVOTHYROXINE 88 MCG TAB PO (06:12)
[2017-10-19 07:46] LABS: ADD MAN DIFF? NO
[2017-10-19 07:51] LABS: WHITE BLOOD COUNT 5.7 10^3/ul (4.8-10.8)
[2017-10-19 07:51] LABS: BASOPHILS % 0.4 % (0.0-2.0); EOSINOPHILS # 0.2 10^3/ul (0.0-0.5); EOSINOPHILS % 2.6 % (0.0-7.0); HEMATOCRIT 31.8 % (42.0-52.0); HEMOGLOBIN 10.3 g/dl (14.0-18.0); LYMPHOCYTES # 2.2 10^3/ul (0.8-2.9); MEAN CORPUSCULAR HEMOGLOBIN 26.8 pg (29.0-33.0); MEAN CORPUSCULAR HGB CONC 32.4 g/dl (32.0-37.0); MEAN CORPUSCULAR VOLUME 82.6 fl (82.0-101.0); MEAN PLATELET VOLUME 11.2 fl (7.4-10.4); MONOCYTE # 0.5 10^3/ul (0.3-0.9); MONOCYTES % 9.1 % (0.0-11.0); NEUTROPHIL # 2.7 10^3/ul (1.6-7.5); NEUTROPHILS % 46.6 % (39.0-77.0); PLATELET COUNT 175 10^3/UL (140-415); RED BLOOD COUNT 3.85 10^6/ul (4.70-6.10); RED CELL DISTRIBUTION WIDTH 17.3 % (11.5-14.5)
[2017-10-19 08:13] LABS: MAGNESIUM 2.5 mg/dl (1.7-2.5)
[2017-10-19 08:13] LABS: PHOSPHORUS 5.5 mg/dl (2.5-4.9)
[2017-10-19 08:19] LABS: CHOL/HDL RATIO 2.7 RATIO; HDL CHOLESTEROL 49 mg/dl (31-75); LDL CHOLESTEROL,CALCULATED 64 mg/dl; TRIGLYCERIDES 104 mg/dl (0-149)
[2017-10-19 08:19] LABS: CHOLESTEROL 134 mg/dl (100-200)
[2017-10-19 08:20] LABS: ANION GAP 22 (8-16); BLOOD UREA NITROGEN 52 mg/dl (7-20); CALCIUM 9.3 mg/dl (8.4-10.2); CARBON DIOXIDE 22 mmol/L (21-31); CHLORIDE 110 mmol/L (97-110); CREATININE 1.93 mg/dl (0.61-1.24); GLUCOSE 94 mg/dl (70-220); POTASSIUM 4.6 mmol/L (3.5-5.1); SODIUM 149 mmol/L (135-144)
[2017-10-19 09:13] LABS: CREATINE KINASE 33 IU/L (23-200)
[2017-10-19 09:24] LABS: CK INDEX 2.8
[2017-10-19 09:25] LABS: CK-MB 0.93 ng/ml (0.0-2.4); TROPONIN-I < 0.012 ng/ml (0.00-0.12)
[2017-10-19] MEDS: ISOSORBIDE MONONITRATE(SR)60 MG TAB PO (09:45)
[2017-10-19] MEDS: TICAGRELOR 90 MG TABLET PO ×2 (09:46→21:45)
[2017-10-19] MEDS: ASPIRIN (EC) 81 MG TAB PO (09:46)
[2017-10-19] MEDS: ALLOPURINOL 100 MG TAB PO (09:46)
[2017-10-19] MEDS: FAMOTIDINE 20 MG INJ IV (21:41)
[2017-10-20] MEDS: LEVOTHYROXINE 88 MCG TAB PO (06:35)
[2017-10-20 07:00] LABS: ADD MAN DIFF? NO
[2017-10-20 07:06] LABS: WHITE BLOOD COUNT 5.1 10^3/ul (4.8-10.8)
[2017-10-20 07:06] LABS: BASOPHILS % 0.4 % (0.0-2.0); EOSINOPHILS # 0.2 10^3/ul (0.0-0.5); EOSINOPHILS % 2.9 % (0.0-7.0); HEMATOCRIT 29.1 % (42.0-52.0); HEMOGLOBIN 9.7 g/dl (14.0-18.0); LYMPHOCYTES # 2.1 10^3/ul (0.8-2.9); LYMPHOCYTES % 40.4 % (15.0-51.0); MEAN CORPUSCULAR HEMOGLOBIN 27.1 pg (29.0-33.0); MEAN CORPUSCULAR HGB CONC 33.3 g/dl (32.0-37.0); MEAN CORPUSCULAR VOLUME 81.3 fl (82.0-101.0); MEAN PLATELET VOLUME 10.7 fl (7.4-10.4); MONOCYTE # 0.4 10^3/ul (0.3-0.9); MONOCYTES % 8.4 % (0.0-11.0); NEUTROPHIL # 2.4 10^3/ul (1.6-7.5); NEUTROPHILS % 47.3 % (39.0-77.0); PLATELET COUNT 150 10^3/UL (140-415); RED BLOOD COUNT 3.58 10^6/ul (4.70-6.10); RED CELL DISTRIBUTION WIDTH 17.1 % (11.5-14.5)
[2017-10-20 07:41] LABS: ANION GAP 19 (8-16); BLOOD UREA NITROGEN 53 mg/dl (7-20); CALCIUM 9.3 mg/dl (8.4-10.2); CARBON DIOXIDE 20 mmol/L (21-31); CHLORIDE 112 mmol/L (97-110); CREATININE 1.86 mg/dl (0.61-1.24); GLUCOSE 93 mg/dl (70-220); PHOSPHORUS 5.3 mg/dl (2.5-4.9); POTASSIUM 4.1 mmol/L (3.5-5.1); SODIUM 147 mmol/L (135-144)
[2017-10-20] MEDS: ASPIRIN (EC) 81 MG TAB PO (08:19)
[2017-10-20] MEDS: ALLOPURINOL 100 MG TAB PO (08:19)
[2017-10-20] MEDS: ISOSORBIDE MONONITRATE(SR)60 MG TAB PO (08:19)
[2017-10-20] MEDS: TICAGRELOR 90 MG TABLET PO (08:25)
== END 2017-10-20 17:30 | disposition home or self-care (01) | DRG 312 ==
LOC: E/R 11:35 → TEL 13:59
DX: R55 Syncope and collapse (principal); N17.9 Acute kidney failure, unspecified; I42.9 Cardiomyopathy, unspecified; I13.0 Hypertensive heart and chronic kidney disease with heart failure and stage 1 through stage 4 chronic kidney disease, or unspecified chronic kidney disease; I50.32 Chronic diastolic (congestive) heart failure; E11.65 Type 2 diabetes mellitus with hyperglycemia; E87.5 Hyperkalemia; D64.9 Anemia, unspecified; Z95.0 Presence of cardiac pacemaker; Z95.5 Presence of coronary angioplasty implant and graft; I44.7 Left bundle-branch block, unspecified; E03.9 Hypothyroidism, unspecified; N18.9 Chronic kidney disease, unspecified
CPT/HCPCS: 36415; 70450; 71045; 80048; 80061; 81003; 82550; 82553; 82962; 83735; 83880; 84100; 84300; 84439; 84443; 84484; 85025; 85610; 93005; 93880; 99285-25

== ENCOUNTER 2017-12-13 12:22 | Inpatient (IN) | payer MEDICARE, OTHER ==
[2017-12-13 16:40] LABS: ADD MAN DIFF? NO
[2017-12-13 16:43] LABS: ADD UMIC NO; UR ASCORBIC ACID NEGATIVE (NEGATIVE); UR BILIRUBIN (Dip) NEGATIVE (NEGATIVE); UR BLOOD (Dip) NEGATIVE (NEGATIVE); UR CLARITY CLEAR (CLEAR); UR COLOR STRAW (YELLOW); UR GLUCOSE (Dip) NEGATIVE (NEGATIVE); UR KETONES (Dip) NEGATIVE (NEGATIVE); UR LEUKOCYTE ESTERASE (Dip) NEGATIVE Leu/ul (NEGATIVE); UR NITRITE (Dip) NEGATIVE (NEGATIVE); UR SPECIFIC GRAVITY (Dip) 1.008 (1.003-1.030); UR TOTAL PROTEIN (Dip) NEGATIVE (NEGATIVE); UR UROBILINOGEN (Dip) NEGATIVE (NEGATIVE)
[2017-12-13 16:44] LABS: BASOPHILS % 0.3 % (0.0-2.0); EOSINOPHILS # 0.2 10^3/ul (0.0-0.5); EOSINOPHILS % 2.5 % (0.0-7.0); HEMATOCRIT 30.9 % (42.0-52.0); HEMOGLOBIN 10.2 g/dl (14.0-18.0); LYMPHOCYTES # 2.3 10^3/ul (0.8-2.9); LYMPHOCYTES % 34.9 % (15.0-51.0); MEAN CORPUSCULAR VOLUME 81.7 fl (82.0-101.0); MEAN PLATELET VOLUME 11.3 fl (7.4-10.4); MONOCYTE # 0.5 10^3/ul (0.3-0.9); MONOCYTES % 6.9 % (0.0-11.0); NEUTROPHIL # 3.4 10^3/ul (1.6-7.5); NEUTROPHILS % 51.1 % (39.0-77.0); PLATELET COUNT 160 10^3/UL (140-415); RED BLOOD COUNT 3.78 10^6/ul (4.70-6.10); RED CELL DISTRIBUTION WIDTH 17.2 % (11.5-14.5)
[2017-12-13 16:44] LABS: WHITE BLOOD COUNT 6.7 10^3/ul (4.8-10.8)
[2017-12-13 16:56] LABS: ALANINE AMINOTRANSFERASE 38 IU/L (13-69); ALBUMIN 4.5 g/dl (3.3-4.9); ALBUMIN/GLOBULIN RATIO 1.07; ALKALINE PHOSPHATASE 81 IU/L (42-121); ANION GAP 20 (8-16); ASPARTATE AMINO TRANSFERASE 40 IU/L (15-46); BILIRUBIN,INDIRECT 0.1 mg/dl (0-1.1); BILIRUBIN,TOTAL 0.1 mg/dl (0.2-1.3); BLOOD UREA NITROGEN 99 mg/dl (7-20); CALCIUM 9.8 mg/dl (8.4-10.2); CARBON DIOXIDE 19 mmol/L (21-31); CHLORIDE 114 mmol/L (97-110); CREATININE 3.09 mg/dl (0.61-1.24); GLUCOSE 105 mg/dl (70-220); LIPASE 1409 U/L (23-300); SODIUM 147 mmol/L (135-144); TOTAL PROTEIN 8.7 g/dl (6.1-8.1)
[2017-12-13 17:05] LABS: POTASSIUM 6.1 mmol/L (3.5-5.1)
[2017-12-13] MEDS: ALBUTEROL 0.083% (NEB) 2.5 MG/3 ML AMP HHN (18:26)
[2017-12-13] MEDS ORDERED: DEXTROSE 50% 50 ML SYRINGE IV (18:30)
[2017-12-13] MEDS: SOD CHLORIDE 0.9% 1,000 ML IV (18:52)
[2017-12-13] MEDS: DEXTROSE 50% 50 ML SYRINGE IV (18:52)
[2017-12-13] MEDS: NA POLYST SULFON 15 GM/60 ML BTL PO (18:53)
[2017-12-13] MEDS: INSULIN REGULAR, HUMAN 100 UNIT/1 ML 3ML VIAL IVP (18:54)
[2017-12-13] MEDS: CALCIUM GLUCONATE 10% 2 GM in DEXTROSE 5% 100 ML IVPB (19:04)
[2017-12-14 00:02] LABS: ALANINE AMINOTRANSFERASE 35 IU/L (13-69); ALBUMIN 4.3 g/dl (3.3-4.9); ALBUMIN/GLOBULIN RATIO 1.07; ALKALINE PHOSPHATASE 76 IU/L (42-121); ANION GAP 19 (8-16); ASPARTATE AMINO TRANSFERASE 44 IU/L (15-46); BILIRUBIN,INDIRECT 0.2 mg/dl (0-1.1); BILIRUBIN,TOTAL 0.2 mg/dl (0.2-1.3); BLOOD UREA NITROGEN 91 mg/dl (7-20); CALCIUM 10.1 mg/dl (8.4-10.2); CARBON DIOXIDE 19 mmol/L (21-31); CHLORIDE 115 mmol/L (97-110); CREATININE 2.68 mg/dl (0.61-1.24); GLUCOSE 97 mg/dl (70-220); POTASSIUM 4.9 mmol/L (3.5-5.1); SODIUM 148 mmol/L (135-144); TOTAL PROTEIN 8.3 g/dl (6.1-8.1)
[2017-12-14] MEDS ORDERED: GLUCAGON 1 MG INJ IM (06:00)
[2017-12-14] MEDS ORDERED: GLUCOSE GEL 15 GRAM TUBE PO ×2 (06:00)
[2017-12-14] MEDS ORDERED: DEXTROSE 50% 50 ML SYRINGE IV ×2 (06:00)
[2017-12-14] MEDS ORDERED: GLUCOSE GEL 15 GRAM TUBE BUCCAL (06:00)
[2017-12-14] MEDS: LEVOTHYROXINE 75 MCG TAB PO (06:30)
[2017-12-14] MEDS: NA POLYST SULFON 15 GM/60 ML BTL PO ×2 (06:30→10:58)
[2017-12-14] MEDS: INSULIN ASPART [NOVOLOG] 3 ML PEN SC ×4 (08:00→21:00)
[2017-12-14 08:55] LABS: ADD MAN DIFF? NO
[2017-12-14 08:57] LABS: BASOPHILS % 0.1 % (0.0-2.0); EOSINOPHILS # 0.1 10^3/ul (0.0-0.5); EOSINOPHILS % 2.1 % (0.0-7.0); HEMATOCRIT 30.9 % (42.0-52.0); HEMOGLOBIN 10.1 g/dl (14.0-18.0); LYMPHOCYTES # 2.1 10^3/ul (0.8-2.9); LYMPHOCYTES % 30.5 % (15.0-51.0); MEAN CORPUSCULAR HEMOGLOBIN 26.4 pg (29.0-33.0); MEAN CORPUSCULAR HGB CONC 32.7 g/dl (32.0-37.0); MEAN CORPUSCULAR VOLUME 80.9 fl (82.0-101.0); MEAN PLATELET VOLUME 11.2 fl (7.4-10.4); MONOCYTE # 0.4 10^3/ul (0.3-0.9); MONOCYTES % 6.2 % (0.0-11.0); NEUTROPHILS % 58.6 % (39.0-77.0); PLATELET COUNT 154 10^3/UL (140-415); RED BLOOD COUNT 3.82 10^6/ul (4.70-6.10); RED CELL DISTRIBUTION WIDTH 17.3 % (11.5-14.5)
[2017-12-14 08:57] LABS: WHITE BLOOD COUNT 6.8 10^3/ul (4.8-10.8)
[2017-12-14] MEDS: ISOSORBIDE MONONITRATE(SR)60 MG TAB PO (08:57)
[2017-12-14] MEDS: ALLOPURINOL 100 MG TAB PO (08:57)
[2017-12-14] MEDS: LINAGLIPTIN 5 MG TABLET PO (08:57)
[2017-12-14] MEDS: ASPIRIN (EC) 81 MG TAB PO (08:57)
[2017-12-14] MEDS: TICAGRELOR 90 MG TABLET PO ×2 (09:00→21:00)
[2017-12-14 09:23] LABS: ALANINE AMINOTRANSFERASE 30 IU/L (13-69); ALBUMIN 4.2 g/dl (3.3-4.9); ALBUMIN/GLOBULIN RATIO 1.02; ALKALINE PHOSPHATASE 77 IU/L (42-121); ANION GAP 18 (8-16); ASPARTATE AMINO TRANSFERASE 39 IU/L (15-46); BILIRUBIN,INDIRECT 0.2 mg/dl (0-1.1); BILIRUBIN,TOTAL 0.2 mg/dl (0.2-1.3); BLOOD UREA NITROGEN 86 mg/dl (7-20); CALCIUM 9.7 mg/dl (8.4-10.2); CARBON DIOXIDE 18 mmol/L (21-31); CHLORIDE 118 mmol/L (97-110); CREATININE 2.53 mg/dl (0.61-1.24); GLUCOSE 122 mg/dl (70-220); SODIUM 148 mmol/L (135-144); TOTAL PROTEIN 8.3 g/dl (6.1-8.1)
[2017-12-14 09:33] LABS: POTASSIUM 6.1 mmol/L (3.5-5.1)
[2017-12-14] MEDS: DEXTROSE 50% 50 ML SYRINGE IV (10:57)
[2017-12-14] MEDS: INSULIN ASPART [NOVOLOG] 3 ML PEN IV (11:06)
[2017-12-14] MEDS: SOD CHLORIDE 0.9% 1,000 ML IV (16:30)
[2017-12-14 17:30] LABS: LIPASE 1063 U/L (23-300)
[2017-12-14 17:30] LABS: CREATINE KINASE 256 IU/L (23-200)
[2017-12-14 17:42] LABS: CK INDEX 1.4; TROPONIN-I 0.017 ng/ml (0.00-0.12)
[2017-12-14 17:47] LABS: CK-MB 3.48 ng/ml (0.0-2.4)
[2017-12-14 18:34] LABS: POTASSIUM 5.8 mmol/L (3.5-5.1)
[2017-12-14] MEDS: NA BICARBONATE 650 MG TAB PO (20:56)
[2017-12-14] MEDS: ATORVASTATIN 20 MG TAB PO (20:56)
[2017-12-15 01:58] LABS: POTASSIUM 5.6 mmol/L (3.5-5.1)
[2017-12-15] MEDS: ACCU-CHEK XX (02:00)
[2017-12-15] MEDS: SOD CHLORIDE 0.9% 1,000 ML IV (05:04)
[2017-12-15] MEDS: LEVOTHYROXINE 75 MCG TAB PO (06:22)
[2017-12-15 07:14] LABS: CREATINE KINASE 155 IU/L (23-200)
[2017-12-15 07:23] LABS: LIPASE 1029 U/L (23-300)
[2017-12-15] MEDS: INSULIN ASPART [NOVOLOG] 3 ML PEN SC ×4 (08:00→20:39)
[2017-12-15] MEDS: ALLOPURINOL 100 MG TAB PO (08:38)
[2017-12-15] MEDS: LINAGLIPTIN 5 MG TABLET PO (08:38)
[2017-12-15] MEDS: NA BICARBONATE 650 MG TAB PO ×2 (08:38→20:39)
[2017-12-15] MEDS: ASPIRIN (EC) 81 MG TAB PO (08:38)
[2017-12-15] MEDS: ISOSORBIDE MONONITRATE(SR)60 MG TAB PO (08:38)
[2017-12-15] MEDS: TICAGRELOR 90 MG TABLET PO ×2 (08:40→20:37)
[2017-12-15] MEDS: NA POLYST SULFON 15 GM/60 ML BTL PO (12:30)
[2017-12-15] MEDS: DEXTROSE 5% 1,000 ML IV (13:49)
[2017-12-15 20:12] LABS: POTASSIUM 5.3 mmol/L (3.5-5.1)
[2017-12-15] MEDS: ATORVASTATIN 20 MG TAB PO (20:35)
[2017-12-16] MEDS: ACCU-CHEK XX (02:00)
[2017-12-16] MEDS: LEVOTHYROXINE 75 MCG TAB PO (07:05)
[2017-12-16] MEDS: INSULIN ASPART [NOVOLOG] 3 ML PEN SC ×4 (08:00→21:00)
[2017-12-16 08:17] LABS: ADD MAN DIFF? NO
[2017-12-16 08:24] LABS: WHITE BLOOD COUNT 5.5 10^3/ul (4.8-10.8)
[2017-12-16 08:24] LABS: BASOPHILS % 0.2 % (0.0-2.0); EOSINOPHILS # 0.1 10^3/ul (0.0-0.5); HEMATOCRIT 27.4 % (42.0-52.0); LYMPHOCYTES # 1.5 10^3/ul (0.8-2.9); LYMPHOCYTES % 27.6 % (15.0-51.0); MEAN CORPUSCULAR HEMOGLOBIN 27.1 pg (29.0-33.0); MEAN CORPUSCULAR HGB CONC 32.8 g/dl (32.0-37.0); MEAN CORPUSCULAR VOLUME 82.5 fl (82.0-101.0); MEAN PLATELET VOLUME 10.7 fl (7.4-10.4); MONOCYTE # 0.4 10^3/ul (0.3-0.9); MONOCYTES % 6.4 % (0.0-11.0); NEUTROPHIL # 3.4 10^3/ul (1.6-7.5); NEUTROPHILS % 61.8 % (39.0-77.0); PLATELET COUNT 121 10^3/UL (140-415); RED BLOOD COUNT 3.32 10^6/ul (4.70-6.10); RED CELL DISTRIBUTION WIDTH 17.2 % (11.5-14.5)
[2017-12-16] MEDS ORDERED: NA POLYST SULFON 15 GM/60 ML BTL PO (08:30)
[2017-12-16] MEDS: ALLOPURINOL 100 MG TAB PO (08:41)
[2017-12-16] MEDS: NA BICARBONATE 650 MG TAB PO ×2 (08:41→20:48)
[2017-12-16] MEDS: ISOSORBIDE MONONITRATE(SR)60 MG TAB PO (08:41)
[2017-12-16] MEDS: ASPIRIN (EC) 81 MG TAB PO (08:41)
[2017-12-16] MEDS: LINAGLIPTIN 5 MG TABLET PO (08:41)
[2017-12-16] MEDS: TICAGRELOR 90 MG TABLET PO ×2 (08:42→20:54)
[2017-12-16 08:44] LABS: ANION GAP 16 (8-16); BLOOD UREA NITROGEN 59 mg/dl (7-20); CALCIUM 8.6 mg/dl (8.4-10.2); CARBON DIOXIDE 15 mmol/L (21-31); CHLORIDE 117 mmol/L (97-110); CREATININE 1.79 mg/dl (0.61-1.24); GLUCOSE 121 mg/dl (70-220); POTASSIUM 4.6 mmol/L (3.5-5.1); SODIUM 143 mmol/L (135-144)
[2017-12-16] MEDS: DEXTROSE 5% 1,000 ML IV (12:47)
[2017-12-16] MEDS: ATORVASTATIN 20 MG TAB PO (20:48)
[2017-12-17] MEDS: ACCU-CHEK XX (00:13)
[2017-12-17] MEDS: LEVOTHYROXINE 75 MCG TAB PO (05:42)
[2017-12-17 07:20] LABS: ANION GAP 15 (8-16); BLOOD UREA NITROGEN 47 mg/dl (7-20); CALCIUM 8.8 mg/dl (8.4-10.2); CARBON DIOXIDE 15 mmol/L (21-31); CHLORIDE 117 mmol/L (97-110); CREATININE 1.61 mg/dl (0.61-1.24); GLUCOSE 124 mg/dl (70-220); POTASSIUM 4.4 mmol/L (3.5-5.1); SODIUM 143 mmol/L (135-144)
[2017-12-17 07:24] LABS: LIPASE 1148 U/L (23-300)
[2017-12-17] MEDS: INSULIN ASPART [NOVOLOG] 3 ML PEN SC ×4 (08:00→21:00)
[2017-12-17] MEDS: ALLOPURINOL 100 MG TAB PO (08:43)
[2017-12-17] MEDS: NA BICARBONATE 650 MG TAB PO ×2 (08:43→21:13)
[2017-12-17] MEDS: LINAGLIPTIN 5 MG TABLET PO (08:43)
[2017-12-17] MEDS: ISOSORBIDE MONONITRATE(SR)60 MG TAB PO (08:43)
[2017-12-17] MEDS: ASPIRIN (EC) 81 MG TAB PO (08:43)
[2017-12-17] MEDS: TICAGRELOR 90 MG TABLET PO ×2 (08:46→21:23)
[2017-12-17 12:29] LABS: AADO2 Arterial 21.1 mmHg (7.0-24.0); Allen Test ACCEPTAB; Arterial Base Excess -9.4 mmol/L (-3.0-3); Arterial Blood Gas Oxygen Sat 96.9 mmHG (95.0-100.0); Arterial COHb 0.3 % (0.0-3.0); Arterial Fraction of Oxyhgb 96.3 % (93.0-99.0); Arterial HCO3 14.5 mmol/L (22.0-26.0); Arterial MetHb 0.3 % (0.0-1.5); Arterial Total Hemglobin 9.4 g/dl (12.0-18.0); Arterial pCO2 25.4 mmhg (35-45); MODE ROOM AIR; Site Right Radial
[2017-12-17] MEDS ORDERED: SODIUM BICARBONATE (IV ADD) 100 MEQ in DEXTROSE 5% 1,000 ML IV (16:30)
[2017-12-17] MEDS: SODIUM BICARBONATE (IV ADD) 100 MEQ in DEXTROSE 5% 1,000 ML IV (21:12)
[2017-12-17] MEDS: ATORVASTATIN 20 MG TAB PO (21:13)
[2017-12-18] MEDS: ACCU-CHEK XX (02:00)
[2017-12-18] MEDS: LEVOTHYROXINE 75 MCG TAB PO (06:39)
[2017-12-18 07:21] LABS: ANION GAP 13 (8-16); BLOOD UREA NITROGEN 41 mg/dl (7-20); CALCIUM 9.2 mg/dl (8.4-10.2); CARBON DIOXIDE 19 mmol/L (21-31); CHLORIDE 117 mmol/L (97-110); CREATININE 1.53 mg/dl (0.61-1.24); GLUCOSE 116 mg/dl (70-220); POTASSIUM 4.3 mmol/L (3.5-5.1); SODIUM 145 mmol/L (135-144)
[2017-12-18] MEDS: INSULIN ASPART [NOVOLOG] 3 ML PEN SC ×3 (08:00→17:20)
[2017-12-18] MEDS: ASPIRIN (EC) 81 MG TAB PO (08:38)
[2017-12-18] MEDS: ALLOPURINOL 100 MG TAB PO (08:38)
[2017-12-18] MEDS: LINAGLIPTIN 5 MG TABLET PO (08:38)
[2017-12-18] MEDS: ISOSORBIDE MONONITRATE(SR)60 MG TAB PO (08:38)
[2017-12-18] MEDS: NA BICARBONATE 650 MG TAB PO (08:38)
[2017-12-18] MEDS: TICAGRELOR 90 MG TABLET PO (08:41)
[2017-12-18] MEDS: DEXTROSE 5% 1,000 ML IV (12:39)
[2017-12-18 15:51] LABS: SODIUM,URINE RANDOM 23 mmol/L (30-90)
== END 2017-12-18 18:55 | disposition home or self-care (01) | DRG 683 ==
LOC: MS4 19:46 → E/R 12:22
DX: N17.9 Acute kidney failure, unspecified (principal); I50.22 Chronic systolic (congestive) heart failure; E87.0 Hyperosmolality and hypernatremia; I42.9 Cardiomyopathy, unspecified; I13.0 Hypertensive heart and chronic kidney disease with heart failure and stage 1 through stage 4 chronic kidney disease, or unspecified chronic kidney disease; E87.2 Acidosis; E87.5 Hyperkalemia; E11.8 Type 2 diabetes mellitus with unspecified complications; E11.22 Type 2 diabetes mellitus with diabetic chronic kidney disease; N18.9 Chronic kidney disease, unspecified; E03.9 Hypothyroidism, unspecified; E78.5 Hyperlipidemia, unspecified; I25.10 Atherosclerotic heart disease of native coronary artery without angina pectoris; Z95.5 Presence of coronary angioplasty implant and graft; Z79.01 Long term (current) use of anticoagulants; Z95.2 Presence of prosthetic heart valve; Z95.810 Presence of automatic (implantable) cardiac defibrillator; Z79.84 Long term (current) use of oral hypoglycemic drugs; Z79.02 Long term (current) use of antithrombotics/antiplatelets; Z79.82 Long term (current) use of aspirin
CPT/HCPCS: 36600; 71045; 76775; 80048; 80053; 81003; 82550; 82553; 82803; 82962; 83690; 84132; 84300; 84484; 85025; 89190; 93005; 94664; 96365; 96366; 96375; 99291-25

== ENCOUNTER 2018-01-31 13:02 | Emergency (ER) | payer MEDICARE, OTHER ==
[2018-01-31] MEDS: SOD CHLORIDE 0.9% 500 ML IV (14:32)
[2018-01-31 14:38] LABS: ADD MAN DIFF? NO
[2018-01-31 14:39] LABS: AADO2 Arterial 12.1 mmHg (7.0-24.0); Allen Test ACCEPTAB; Arterial Base Excess -3.5 mmol/L (-3.0-3); Arterial Blood Gas Oxygen Sat 97.4 mmHG (95.0-100.0); Arterial COHb 0.3 % (0.0-3.0); Arterial Fraction of Oxyhgb 96.8 % (93.0-99.0); Arterial HCO3 20.6 mmol/L (22.0-26.0); Arterial MetHb 0.3 % (0.0-1.5); Arterial Total Hemglobin 10.5 g/dl (12.0-18.0); Arterial pCO2 33.5 mmhg (35-45); MODE ROOM AIR; Site Right Radial
[2018-01-31 14:42] LABS: ABNORMAL IP MESSAGE 1; BASOPHILS % 0.3 % (0.0-2.0); EOSINOPHILS # 0.1 10^3/ul (0.0-0.5); EOSINOPHILS % 1.1 % (0.0-7.0); HEMATOCRIT 31.4 % (42.0-52.0); LYMPHOCYTES # 1.7 10^3/ul (0.8-2.9); LYMPHOCYTES % 22.9 % (15.0-51.0); MEAN CORPUSCULAR HGB CONC 31.8 g/dl (32.0-37.0); MEAN CORPUSCULAR VOLUME 84.9 fl (82.0-101.0); MEAN PLATELET VOLUME 12.1 fl (7.4-10.4); MONOCYTE # 0.7 10^3/ul (0.3-0.9); MONOCYTES % 8.8 % (0.0-11.0); NEUTROPHIL # 4.6 10^3/ul (1.6-7.5); NEUTROPHILS % 60.5 % (39.0-77.0); PLATELET COUNT 126 10^3/UL (140-415); POSITIVE DIFF @See below; RED CELL DISTRIBUTION WIDTH 18.4 % (11.5-14.5)
[2018-01-31 14:42] LABS: WHITE BLOOD COUNT 7.6 10^3/ul (4.8-10.8)
[2018-01-31 15:01] LABS: ALANINE AMINOTRANSFERASE 24 IU/L (13-69); ALBUMIN 3.9 g/dl (3.3-4.9); ALBUMIN/GLOBULIN RATIO 1.18; ALKALINE PHOSPHATASE 85 IU/L (42-121); ANION GAP 16 (8-16); ASPARTATE AMINO TRANSFERASE 23 IU/L (15-46); BILIRUBIN,INDIRECT 0.4 mg/dl (0-1.1); BILIRUBIN,TOTAL 0.4 mg/dl (0.2-1.3); BLOOD UREA NITROGEN 55 mg/dl (7-20); CALCIUM 8.6 mg/dl (8.4-10.2); CARBON DIOXIDE 22 mmol/L (21-31); CHLORIDE 111 mmol/L (97-110); CREATININE 1.88 mg/dl (0.61-1.24); GLUCOSE 323 mg/dl (70-220); LIPASE 958 U/L (23-300); POTASSIUM 4.3 mmol/L (3.5-5.1); SODIUM 145 mmol/L (135-144); TOTAL PROTEIN 7.2 g/dl (6.1-8.1)
[2018-01-31 15:10] LABS: TROPONIN-I 0.019 ng/ml (0.000-0.120)
== END 2018-01-31 15:27 | disposition home or self-care (01) ==
LOC: E/R 15:27
DX: Z00.00 Encounter for general adult medical examination without abnormal findings (principal); I12.9 Hypertensive chronic kidney disease with stage 1 through stage 4 chronic kidney disease, or unspecified chronic kidney disease; N18.9 Chronic kidney disease, unspecified; E11.22 Type 2 diabetes mellitus with diabetic chronic kidney disease; I25.10 Atherosclerotic heart disease of native coronary artery without angina pectoris; I50.9 Heart failure, unspecified; E03.9 Hypothyroidism, unspecified; Z79.82 Long term (current) use of aspirin; Z98.61 Coronary angioplasty status; Z79.84 Long term (current) use of oral hypoglycemic drugs
CPT/HCPCS: 36415; 36600; 71045; 80053; 82803; 83690; 84484; 85025; 93005; 99285-25

== ENCOUNTER 2018-06-25 12:55 | Inpatient (IN) | payer MEDICARE, OTHER ==
[2018-06-25 13:16] LABS: ADD MAN DIFF? NO
[2018-06-25] MEDS: ALBUTEROL 0.5% (NEB) 2.5 MG/0.5 ML AMP INH (13:21)
[2018-06-25] MEDS: ASPIRIN 81 MG TAB PO (13:30)
[2018-06-25 13:31] LABS: ABNORMAL IP MESSAGE 1; BASOPHILS % 0.1 % (0.0-2.0); EOSINOPHILS % 0.3 % (0.0-7.0); HEMATOCRIT 32.8 % (42.0-52.0); HEMOGLOBIN 10.5 g/dl (14.0-18.0); LYMPHOCYTES # 1.4 10^3/ul (0.8-2.9); LYMPHOCYTES % 14.5 % (15.0-51.0); MEAN CORPUSCULAR HEMOGLOBIN 26.7 pg (29.0-33.0); MEAN CORPUSCULAR VOLUME 83.5 fl (82.0-101.0); MEAN PLATELET VOLUME 11.8 fl (7.4-10.4); MONOCYTE # 0.5 10^3/ul (0.3-0.9); MONOCYTES % 5.3 % (0.0-11.0); NEUTROPHIL # 7.5 10^3/ul (1.6-7.5); NEUTROPHILS % 77.5 % (39.0-77.0); PLATELET COUNT 131 10^3/UL (140-415); POSITIVE DIFF @See below; RED BLOOD COUNT 3.93 10^6/ul (4.70-6.10)
[2018-06-25 13:31] LABS: WHITE BLOOD COUNT 9.7 10^3/ul (4.8-10.8)
[2018-06-25] MEDS: FUROSEMIDE 40 MG INJ IV ×2 (13:31→20:23)
[2018-06-25] MEDS: NITROGLYCERIN (SL) 0.4 MG TAB SL (13:41)
[2018-06-25 13:51] LABS: ALANINE AMINOTRANSFERASE 18 IU/L (13-69); ALBUMIN 4.8 g/dl (3.3-4.9); ALBUMIN/GLOBULIN RATIO 1.41; ALKALINE PHOSPHATASE 84 IU/L (42-121); ANION GAP 13 (5-13); ASPARTATE AMINO TRANSFERASE 33 IU/L (15-46); BILIRUBIN,INDIRECT 0.8 mg/dl (0-1.1); BILIRUBIN,TOTAL 0.8 mg/dl (0.2-1.3); BLOOD UREA NITROGEN 30 mg/dl (7-20); CALCIUM 9.3 mg/dl (8.4-10.2); CARBON DIOXIDE 23 mmol/L (21-31); CHLORIDE 108 mmol/L (97-110); CREATININE 1.57 mg/dl (0.61-1.24); GLUCOSE 170 mg/dl (70-220); LIPASE 345 U/L (23-300); SODIUM 144 mmol/L (135-144); TOTAL PROTEIN 8.2 g/dl (6.1-8.1)
[2018-06-25 13:59] LABS: B-TYPE NATRIURETIC PEPTIDE 8560 PG/ML (0-450)
[2018-06-25 14:02] LABS: TROPONIN-I < 0.012 ng/ml (0.000-0.120)
[2018-06-25] MEDS ORDERED: DOCUSATE SODIUM 100 MG CAP PO (17:00)
[2018-06-25] MEDS ORDERED: NACL 0.9% 3 ML SYG IV (17:00)
[2018-06-25] MEDS ORDERED: ONDANSETRON 4 MG INJ IV (17:00)
[2018-06-25] MEDS ORDERED: GLUCAGON 1 MG INJ IM (17:30)
[2018-06-25] MEDS ORDERED: GLUCOSE GEL 15 GRAM TUBE PO ×2 (17:30)
[2018-06-25] MEDS ORDERED: GLUCOSE GEL 15 GRAM TUBE BUCCAL (17:30)
[2018-06-25] MEDS ORDERED: DEXTROSE 50% 50 ML SYRINGE IV ×2 (17:30)
[2018-06-25] MEDS: LEVALBUTEROL (NEB) 0.63 MG/3 ML AMP HHN (17:55)
[2018-06-25] MEDS: ATORVASTATIN 20 MG TAB PO (20:20)
[2018-06-25] MEDS: TICAGRELOR 90 MG TABLET PO (20:23)
[2018-06-25] MEDS: INSULIN ASPART [NOVOLOG] 3 ML PEN SC ×2 (20:24→20:29)
[2018-06-25] MEDS: LATANOPROST 0.005% 2.5 ML OPH BOTH EYES (20:27)
[2018-06-25 20:28] LABS: CREATINE KINASE 65 IU/L (23-200)
[2018-06-25 20:40] LABS: CK INDEX 1.3; CK-MB 0.83 ng/ml (0.0-2.4); TROPONIN-I 0.039 ng/ml (0.000-0.120)
[2018-06-26] MEDS: ACETAMINOPHEN 325 MG TAB PO (00:39)
[2018-06-26 01:35] LABS: CREATINE KINASE 84 IU/L (23-200)
[2018-06-26 01:47] LABS: CK-MB 0.88 ng/ml (0.0-2.4); TROPONIN-I 0.049 ng/ml (0.000-0.120)
[2018-06-26] MEDS: ACCU-CHEK XX (02:00)
[2018-06-26] MEDS: LEVALBUTEROL (NEB) 0.63 MG/3 ML AMP HHN ×4 (02:50→19:49)
[2018-06-26 05:54] LABS: ADD MAN DIFF? NO
[2018-06-26 05:56] LABS: WHITE BLOOD COUNT 8.6 10^3/ul (4.8-10.8)
[2018-06-26 05:57] LABS: BASOPHILS % 0.1 % (0.0-2.0); EOSINOPHILS % 0.5 % (0.0-7.0); HEMATOCRIT 27.8 % (42.0-52.0); HEMOGLOBIN 9.1 g/dl (14.0-18.0); LYMPHOCYTES # 1.8 10^3/ul (0.8-2.9); MEAN CORPUSCULAR HEMOGLOBIN 27.1 pg (29.0-33.0); MEAN CORPUSCULAR HGB CONC 32.7 g/dl (32.0-37.0); MEAN CORPUSCULAR VOLUME 82.7 fl (82.0-101.0); MONOCYTE # 0.8 10^3/ul (0.3-0.9); MONOCYTES % 9.8 % (0.0-11.0); NEUTROPHIL # 5.7 10^3/ul (1.6-7.5); NEUTROPHILS % 65.9 % (39.0-77.0); PLATELET COUNT 113 10^3/UL (140-415); RED BLOOD COUNT 3.36 10^6/ul (4.70-6.10); RED CELL DISTRIBUTION WIDTH 17.7 % (11.5-14.5)
[2018-06-26] MEDS: LEVOTHYROXINE 75 MCG TAB PO (06:20)
[2018-06-26] MEDS: PANTOPRAZOLE (EC) 40 MG TAB PO (06:20)
[2018-06-26 06:58] LABS: ANION GAP 14 (5-13); BLOOD UREA NITROGEN 30 mg/dl (7-20); CALCIUM 9.1 mg/dl (8.4-10.2); CARBON DIOXIDE 26 mmol/L (21-31); CHLORIDE 105 mmol/L (97-110); GLUCOSE 152 mg/dl (70-220); POTASSIUM 3.7 mmol/L (3.5-5.1); SODIUM 145 mmol/L (135-144)
[2018-06-26] MEDS: FUROSEMIDE 40 MG INJ IV (08:03)
[2018-06-26] MEDS: ASPIRIN (EC) 81 MG TAB PO (08:03)
[2018-06-26] MEDS: LINAGLIPTIN 5 MG TABLET PO (08:03)
[2018-06-26] MEDS: ALLOPURINOL 100 MG TAB PO (08:04)
[2018-06-26] MEDS: TICAGRELOR 90 MG TABLET PO ×2 (08:14→20:20)
[2018-06-26] MEDS: INSULIN ASPART [NOVOLOG] 3 ML PEN SC ×4 (09:02→20:20)
[2018-06-26 16:50] LABS: ADD UMIC NO; UR ASCORBIC ACID NEGATIVE (NEGATIVE); UR BILIRUBIN (Dip) NEGATIVE (NEGATIVE); UR BLOOD (Dip) NEGATIVE (NEGATIVE); UR CLARITY CLEAR (CLEAR); UR COLOR YELLOW (YELLOW); UR GLUCOSE (Dip) NEGATIVE (NEGATIVE); UR KETONES (Dip) NEGATIVE (NEGATIVE); UR LEUKOCYTE ESTERASE (Dip) NEGATIVE Leu/ul (NEGATIVE); UR NITRITE (Dip) NEGATIVE (NEGATIVE); UR TOTAL PROTEIN (Dip) NEGATIVE (NEGATIVE); UR UROBILINOGEN (Dip) NEGATIVE (NEGATIVE)
[2018-06-26] MEDS: ATORVASTATIN 20 MG TAB PO (20:08)
[2018-06-26] MEDS: LATANOPROST 0.005% 2.5 ML OPH BOTH EYES (20:08)
[2018-06-27] MEDS: LEVALBUTEROL (NEB) 0.63 MG/3 ML AMP HHN ×4 (01:37→20:27)
[2018-06-27] MEDS: ACCU-CHEK XX (02:00)
[2018-06-27] MEDS: LEVOTHYROXINE 75 MCG TAB PO (06:21)
[2018-06-27] MEDS: PANTOPRAZOLE (EC) 40 MG TAB PO (06:21)
[2018-06-27] MEDS: INSULIN ASPART [NOVOLOG] 3 ML PEN SC ×4 (07:46→21:17)
[2018-06-27] MEDS: LINAGLIPTIN 5 MG TABLET PO (09:05)
[2018-06-27] MEDS: FUROSEMIDE 40 MG INJ IV (09:05)
[2018-06-27] MEDS: ALLOPURINOL 100 MG TAB PO (09:06)
[2018-06-27] MEDS: ASPIRIN (EC) 81 MG TAB PO (09:06)
[2018-06-27] MEDS: TICAGRELOR 90 MG TABLET PO ×2 (09:17→21:52)
[2018-06-27 10:14] LABS: ANION GAP 10 (5-13); BLOOD UREA NITROGEN 31 mg/dl (7-20); CALCIUM 8.9 mg/dl (8.4-10.2); CARBON DIOXIDE 24 mmol/L (21-31); CHLORIDE 107 mmol/L (97-110); CREATININE 2.17 mg/dl (0.61-1.24); GLUCOSE 219 mg/dl (70-220); POTASSIUM 3.5 mmol/L (3.5-5.1); SODIUM 141 mmol/L (135-144)
[2018-06-27] MEDS: AZITHROMYCIN 250 MG TAB PO (10:18)
[2018-06-27] MEDS: ATORVASTATIN 20 MG TAB PO (21:09)
[2018-06-27] MEDS: LATANOPROST 0.005% 2.5 ML OPH BOTH EYES (21:20)
[2018-06-28] MEDS: LEVALBUTEROL (NEB) 0.63 MG/3 ML AMP HHN ×4 (01:44→19:37)
[2018-06-28] MEDS: ACCU-CHEK XX (02:00)
[2018-06-28 05:44] LABS: ADD MAN DIFF? NO
[2018-06-28 05:51] LABS: WHITE BLOOD COUNT 5.2 10^3/ul (4.8-10.8)
[2018-06-28 05:51] LABS: BASOPHILS % 0.2 % (0.0-2.0); EOSINOPHILS # 0.1 10^3/ul (0.0-0.5); EOSINOPHILS % 1.5 % (0.0-7.0); HEMATOCRIT 29.1 % (42.0-52.0); HEMOGLOBIN 9.2 g/dl (14.0-18.0); LYMPHOCYTES # 1.1 10^3/ul (0.8-2.9); LYMPHOCYTES % 21.6 % (15.0-51.0); MEAN CORPUSCULAR HEMOGLOBIN 26.7 pg (29.0-33.0); MEAN CORPUSCULAR HGB CONC 31.6 g/dl (32.0-37.0); MEAN CORPUSCULAR VOLUME 84.3 fl (82.0-101.0); MEAN PLATELET VOLUME 11.5 fl (7.4-10.4); MONOCYTE # 0.3 10^3/ul (0.3-0.9); MONOCYTES % 6.5 % (0.0-11.0); NEUTROPHIL # 3.6 10^3/ul (1.6-7.5); NEUTROPHILS % 68.5 % (39.0-77.0); PLATELET COUNT 125 10^3/UL (140-415); RED BLOOD COUNT 3.45 10^6/ul (4.70-6.10); RED CELL DISTRIBUTION WIDTH 17.4 % (11.5-14.5)
[2018-06-28] MEDS: LEVOTHYROXINE 75 MCG TAB PO (06:20)
[2018-06-28] MEDS: PANTOPRAZOLE (EC) 40 MG TAB PO (06:20)
[2018-06-28 06:36] LABS: PHOSPHORUS 4.1 mg/dl (2.5-4.9)
[2018-06-28 06:36] LABS: MAGNESIUM 2.3 mg/dl (1.7-2.5)
[2018-06-28 06:39] LABS: ANION GAP 11 (5-13); BLOOD UREA NITROGEN 38 mg/dl (7-20); CARBON DIOXIDE 26 mmol/L (21-31); CHLORIDE 109 mmol/L (97-110); CREATININE 2.37 mg/dl (0.61-1.24); GLUCOSE 136 mg/dl (70-220); POTASSIUM 4.2 mmol/L (3.5-5.1); SODIUM 146 mmol/L (135-144)
[2018-06-28] MEDS: INSULIN ASPART [NOVOLOG] 3 ML PEN SC ×5 (08:06→22:22)
[2018-06-28] MEDS: AZITHROMYCIN 250 MG TAB PO (08:16)
[2018-06-28] MEDS: ASPIRIN (EC) 81 MG TAB PO (08:16)
[2018-06-28] MEDS: ALLOPURINOL 100 MG TAB PO (08:17)
[2018-06-28] MEDS: LINAGLIPTIN 5 MG TABLET PO (08:17)
[2018-06-28] MEDS: TICAGRELOR 90 MG TABLET PO ×2 (08:18→22:45)
[2018-06-28] MEDS: ATORVASTATIN 20 MG TAB PO (22:22)
[2018-06-28] MEDS: LATANOPROST 0.005% 2.5 ML OPH BOTH EYES (22:23)
[2018-06-29] MEDS: ACCU-CHEK XX (01:01)
[2018-06-29] MEDS: LEVALBUTEROL (NEB) 0.63 MG/3 ML AMP HHN ×4 (02:00→19:58)
[2018-06-29 06:07] LABS: ADD MAN DIFF? NO
[2018-06-29] MEDS: LEVOTHYROXINE 75 MCG TAB PO (06:25)
[2018-06-29] MEDS: PANTOPRAZOLE (EC) 40 MG TAB PO (06:25)
[2018-06-29 06:29] LABS: WHITE BLOOD COUNT 4.7 10^3/ul (4.8-10.8)
[2018-06-29 06:29] LABS: BASOPHILS % 0.2 % (0.0-2.0); EOSINOPHILS # 0.1 10^3/ul (0.0-0.5); EOSINOPHILS % 2.5 % (0.0-7.0); HEMATOCRIT 27.6 % (42.0-52.0); HEMOGLOBIN 8.8 g/dl (14.0-18.0); LYMPHOCYTES # 0.9 10^3/ul (0.8-2.9); LYMPHOCYTES % 19.9 % (15.0-51.0); MEAN CORPUSCULAR HEMOGLOBIN 26.7 pg (29.0-33.0); MEAN CORPUSCULAR HGB CONC 31.9 g/dl (32.0-37.0); MEAN CORPUSCULAR VOLUME 83.6 fl (82.0-101.0); MEAN PLATELET VOLUME 11.2 fl (7.4-10.4); MONOCYTE # 0.3 10^3/ul (0.3-0.9); MONOCYTES % 6.6 % (0.0-11.0); NEUTROPHIL # 3.3 10^3/ul (1.6-7.5); NEUTROPHILS % 69.1 % (39.0-77.0); PLATELET COUNT 130 10^3/UL (140-415); RED CELL DISTRIBUTION WIDTH 17.3 % (11.5-14.5)
[2018-06-29 07:05] LABS: ANION GAP 10 (5-13); BLOOD UREA NITROGEN 30 mg/dl (7-20); CALCIUM 8.9 mg/dl (8.4-10.2); CARBON DIOXIDE 25 mmol/L (21-31); CHLORIDE 111 mmol/L (97-110); GLUCOSE 139 mg/dl (70-220); POTASSIUM 4.4 mmol/L (3.5-5.1); SODIUM 146 mmol/L (135-144)
[2018-06-29 07:19] LABS: HEMOGLOBIN A1C 6.7 % (0-5.9)
[2018-06-29] MEDS: INSULIN ASPART [NOVOLOG] 3 ML PEN SC ×7 (07:55→21:00)
[2018-06-29] MEDS: ALLOPURINOL 100 MG TAB PO (08:09)
[2018-06-29] MEDS: AZITHROMYCIN 250 MG TAB PO (08:10)
[2018-06-29] MEDS: ASPIRIN (EC) 81 MG TAB PO (08:10)
[2018-06-29] MEDS: LINAGLIPTIN 5 MG TABLET PO (08:10)
[2018-06-29] MEDS: TICAGRELOR 90 MG TABLET PO ×2 (08:20→21:23)
[2018-06-29] MEDS: FUROSEMIDE 40 MG INJ IV (12:47)
[2018-06-29] MEDS: SOD FERRIC GLUC COMPLX 125 MG in SOD CHLORIDE 0.9% 100 ML IVPB (16:32)
[2018-06-29] MEDS: ATORVASTATIN 20 MG TAB PO (21:09)
[2018-06-29] MEDS: LATANOPROST 0.005% 2.5 ML OPH BOTH EYES (23:23)
[2018-06-30] MEDS: LEVALBUTEROL (NEB) 0.63 MG/3 ML AMP HHN ×4 (01:47→19:54)
[2018-06-30] MEDS: ACCU-CHEK XX (02:00)
[2018-06-30 06:02] LABS: ADD MAN DIFF? NO
[2018-06-30 06:07] LABS: EOSINOPHILS # 0.1 10^3/ul (0.0-0.5); EOSINOPHILS % 2.4 % (0.0-7.0); HEMOGLOBIN 8.7 g/dl (14.0-18.0); LYMPHOCYTES # 1.1 10^3/ul (0.8-2.9); LYMPHOCYTES % 24.6 % (15.0-51.0); MEAN CORPUSCULAR HEMOGLOBIN 26.6 pg (29.0-33.0); MEAN CORPUSCULAR HGB CONC 32.2 g/dl (32.0-37.0); MEAN CORPUSCULAR VOLUME 82.6 fl (82.0-101.0); MEAN PLATELET VOLUME 12.1 fl (7.4-10.4); MONOCYTE # 0.4 10^3/ul (0.3-0.9); MONOCYTES % 9.3 % (0.0-11.0); NEUTROPHIL # 2.9 10^3/ul (1.6-7.5); NEUTROPHILS % 62.4 % (39.0-77.0); PLATELET COUNT 149 10^3/UL (140-415); RED BLOOD COUNT 3.27 10^6/ul (4.70-6.10); RED CELL DISTRIBUTION WIDTH 17.2 % (11.5-14.5)
[2018-06-30 06:07] LABS: WHITE BLOOD COUNT 4.6 10^3/ul (4.8-10.8)
[2018-06-30] MEDS: LEVOTHYROXINE 75 MCG TAB PO (06:14)
[2018-06-30] MEDS: PANTOPRAZOLE (EC) 40 MG TAB PO (06:14)
[2018-06-30 06:48] LABS: ANION GAP 10 (5-13); BLOOD UREA NITROGEN 32 mg/dl (7-20); CALCIUM 8.8 mg/dl (8.4-10.2); CARBON DIOXIDE 24 mmol/L (21-31); CHLORIDE 109 mmol/L (97-110); CREATININE 2.05 mg/dl (0.61-1.24); GLUCOSE 131 mg/dl (70-220); POTASSIUM 3.8 mmol/L (3.5-5.1); SODIUM 143 mmol/L (135-144)
[2018-06-30] MEDS: INSULIN ASPART [NOVOLOG] 3 ML PEN SC ×7 (07:43→21:00)
[2018-06-30] MEDS: AZITHROMYCIN 250 MG TAB PO (08:58)
[2018-06-30] MEDS: LINAGLIPTIN 5 MG TABLET PO (08:59)
[2018-06-30] MEDS: ASPIRIN (EC) 81 MG TAB PO (08:59)
[2018-06-30] MEDS: ALLOPURINOL 100 MG TAB PO (08:59)
[2018-06-30] MEDS: TICAGRELOR 90 MG TABLET PO ×2 (09:12→21:19)
[2018-06-30] MEDS: SOD FERRIC GLUC COMPLX 125 MG in SOD CHLORIDE 0.9% 100 ML IVPB (16:20)
[2018-06-30] MEDS: LATANOPROST 0.005% 2.5 ML OPH BOTH EYES (21:09)
[2018-06-30] MEDS: ATORVASTATIN 20 MG TAB PO (21:10)
[2018-07-01] MEDS: LEVALBUTEROL (NEB) 0.63 MG/3 ML AMP HHN ×4 (01:41→20:08)
[2018-07-01] MEDS: ACCU-CHEK XX (02:00)
[2018-07-01] MEDS: PANTOPRAZOLE (EC) 40 MG TAB PO (06:06)
[2018-07-01] MEDS: LEVOTHYROXINE 75 MCG TAB PO (06:06)
[2018-07-01] MEDS: INSULIN ASPART [NOVOLOG] 3 ML PEN SC ×7 (07:48→21:10)
[2018-07-01] MEDS: AZITHROMYCIN 250 MG TAB PO (08:04)
[2018-07-01] MEDS: ASPIRIN (EC) 81 MG TAB PO (08:04)
[2018-07-01] MEDS: ALLOPURINOL 100 MG TAB PO (08:04)
[2018-07-01] MEDS: LINAGLIPTIN 5 MG TABLET PO (08:04)
[2018-07-01] MEDS: TICAGRELOR 90 MG TABLET PO ×2 (08:06→21:10)
[2018-07-01] MEDS: FUROSEMIDE 40 MG INJ IV (12:54)
[2018-07-01 14:19] LABS: AADO2 Arterial 45.4 mmHg (7.0-24.0); Allen Test ACCEPTAB; Arterial Base Excess -1.3 mmol/L (-3.0-3); Arterial Blood Gas Oxygen Sat 97.7 mmHG (95.0-100.0); Arterial COHb 0.3 % (0.0-3.0); Arterial Fraction of Oxyhgb 97.1 % (93.0-99.0); Arterial HCO3 22.5 mmol/L (22.0-26.0); Arterial MetHb 0.3 % (0.0-1.5); Arterial Total Hemglobin 10.2 g/dl (12.0-18.0); Arterial pCO2 34.5 mmhg (35-45); MODE NASAL CANNULA; Site Right Radial
[2018-07-01] MEDS: SOD FERRIC GLUC COMPLX 125 MG in SOD CHLORIDE 0.9% 100 ML IVPB (17:23)
[2018-07-01] MEDS: ATORVASTATIN 20 MG TAB PO (20:50)
[2018-07-01] MEDS: LATANOPROST 0.005% 2.5 ML OPH BOTH EYES (20:50)
[2018-07-02] MEDS: LEVALBUTEROL (NEB) 0.63 MG/3 ML AMP HHN ×4 (01:42→20:03)
[2018-07-02] MEDS: ACCU-CHEK XX (02:29)
[2018-07-02] MEDS: LEVOTHYROXINE 75 MCG TAB PO (06:05)
[2018-07-02] MEDS: PANTOPRAZOLE (EC) 40 MG TAB PO (06:05)
[2018-07-02 06:20] LABS: ADD MAN DIFF? NO
[2018-07-02 06:21] LABS: WHITE BLOOD COUNT 5.9 10^3/ul (4.8-10.8)
[2018-07-02 06:21] LABS: BASOPHILS % 0.2 % (0.0-2.0); EOSINOPHILS # 0.1 10^3/ul (0.0-0.5); EOSINOPHILS % 1.9 % (0.0-7.0); HEMATOCRIT 25.1 % (42.0-52.0); HEMOGLOBIN 8.3 g/dl (14.0-18.0); LYMPHOCYTES # 1.4 10^3/ul (0.8-2.9); LYMPHOCYTES % 24.1 % (15.0-51.0); MEAN CORPUSCULAR HEMOGLOBIN 27.2 pg (29.0-33.0); MEAN CORPUSCULAR HGB CONC 33.1 g/dl (32.0-37.0); MEAN CORPUSCULAR VOLUME 82.3 fl (82.0-101.0); MEAN PLATELET VOLUME 11.9 fl (7.4-10.4); MONOCYTE # 0.5 10^3/ul (0.3-0.9); NEUTROPHIL # 3.8 10^3/ul (1.6-7.5); PLATELET COUNT 150 10^3/UL (140-415); RED BLOOD COUNT 3.05 10^6/ul (4.70-6.10); RED CELL DISTRIBUTION WIDTH 17.5 % (11.5-14.5)
[2018-07-02 07:11] LABS: MAGNESIUM 2.6 mg/dl (1.7-2.5)
[2018-07-02 07:14] LABS: ANION GAP 11 (5-13); BLOOD UREA NITROGEN 35 mg/dl (7-20); CARBON DIOXIDE 24 mmol/L (21-31); CHLORIDE 111 mmol/L (97-110); CREATININE 1.76 mg/dl (0.61-1.24); GLUCOSE 114 mg/dl (70-220); POTASSIUM 4.3 mmol/L (3.5-5.1); SODIUM 146 mmol/L (135-144)
[2018-07-02] MEDS: INSULIN ASPART [NOVOLOG] 3 ML PEN SC ×7 (07:55→21:00)
[2018-07-02] MEDS: AZITHROMYCIN 250 MG TAB PO (09:02)
[2018-07-02] MEDS: ALLOPURINOL 100 MG TAB PO (09:02)
[2018-07-02] MEDS: ASPIRIN (EC) 81 MG TAB PO (09:02)
[2018-07-02] MEDS: FUROSEMIDE 40 MG INJ IV ×2 (09:03→13:36)
[2018-07-02] MEDS: LINAGLIPTIN 5 MG TABLET PO (09:03)
[2018-07-02] MEDS: TICAGRELOR 90 MG TABLET PO ×2 (09:07→21:28)
[2018-07-02] MEDS: ATORVASTATIN 20 MG TAB PO (21:16)
[2018-07-02] MEDS: LATANOPROST 0.005% 2.5 ML OPH BOTH EYES (21:17)
[2018-07-03] MEDS: LEVALBUTEROL (NEB) 0.63 MG/3 ML AMP HHN ×4 (01:45→19:37)
[2018-07-03] MEDS: ACCU-CHEK XX (02:00)
[2018-07-03] MEDS: LEVOTHYROXINE 75 MCG TAB PO (06:15)
[2018-07-03] MEDS: PANTOPRAZOLE (EC) 40 MG TAB PO (06:15)
[2018-07-03] MEDS: INSULIN ASPART [NOVOLOG] 3 ML PEN SC ×7 (07:55→21:00)
[2018-07-03] MEDS: FUROSEMIDE 40 MG INJ IV ×2 (09:38→14:43)
[2018-07-03] MEDS: AZITHROMYCIN 250 MG TAB PO (09:39)
[2018-07-03] MEDS: ASPIRIN (EC) 81 MG TAB PO (09:39)
[2018-07-03] MEDS: ALLOPURINOL 100 MG TAB PO (09:39)
[2018-07-03] MEDS: LINAGLIPTIN 5 MG TABLET PO (09:39)
[2018-07-03] MEDS: TICAGRELOR 90 MG TABLET PO ×2 (09:47→22:05)
[2018-07-03 11:06] LABS: ANION GAP 11 (5-13); BLOOD UREA NITROGEN 36 mg/dl (7-20); CALCIUM 8.8 mg/dl (8.4-10.2); CARBON DIOXIDE 26 mmol/L (21-31); CHLORIDE 108 mmol/L (97-110); CREATININE 1.94 mg/dl (0.61-1.24); GLUCOSE 155 mg/dl (70-220); SODIUM 145 mmol/L (135-144)
[2018-07-03] MEDS: ATORVASTATIN 20 MG TAB PO (21:49)
[2018-07-03] MEDS: LATANOPROST 0.005% 2.5 ML OPH BOTH EYES (21:49)
[2018-07-04] MEDS: ACCU-CHEK XX (02:00)
[2018-07-04] MEDS: LEVALBUTEROL (NEB) 0.63 MG/3 ML AMP HHN ×4 (02:00→21:05)
[2018-07-04] MEDS: LEVOTHYROXINE 75 MCG TAB PO (06:07)
[2018-07-04] MEDS: PANTOPRAZOLE (EC) 40 MG TAB PO (06:07)
[2018-07-04 06:46] LABS: ADD MAN DIFF? NO
[2018-07-04 06:51] LABS: RETICULOCYTE COUNT # 0.066 X10^6 (0.020-0.110)
[2018-07-04 06:51] LABS: RETICULOCYTE RBC 3.25
[2018-07-04 06:53] LABS: BASOPHILS % 0.2 % (0.0-2.0); EOSINOPHILS # 0.1 10^3/ul (0.0-0.5); EOSINOPHILS % 2.7 % (0.0-7.0); HEMATOCRIT 26.4 % (42.0-52.0); HEMOGLOBIN 8.5 g/dl (14.0-18.0); LYMPHOCYTES # 1.3 10^3/ul (0.8-2.9); LYMPHOCYTES % 27.6 % (15.0-51.0); MEAN CORPUSCULAR HEMOGLOBIN 26.7 pg (29.0-33.0); MEAN CORPUSCULAR HGB CONC 32.2 g/dl (32.0-37.0); MEAN PLATELET VOLUME 11.5 fl (7.4-10.4); MONOCYTE # 0.5 10^3/ul (0.3-0.9); MONOCYTES % 9.5 % (0.0-11.0); NEUTROPHIL # 2.9 10^3/ul (1.6-7.5); NEUTROPHILS % 59.4 % (39.0-77.0); PLATELET COUNT 167 10^3/UL (140-415); POSITIVE DIFF @See below; RED BLOOD COUNT 3.18 10^6/ul (4.70-6.10); RED CELL DISTRIBUTION WIDTH 17.7 % (11.5-14.5)
[2018-07-04 06:53] LABS: WHITE BLOOD COUNT 4.9 10^3/ul (4.8-10.8)
[2018-07-04 07:12] LABS: ANION GAP 13 (5-13); BLOOD UREA NITROGEN 37 mg/dl (7-20); CALCIUM 8.8 mg/dl (8.4-10.2); CARBON DIOXIDE 24 mmol/L (21-31); CHLORIDE 108 mmol/L (97-110); CREATININE 1.79 mg/dl (0.61-1.24); GLUCOSE 105 mg/dl (70-220); POTASSIUM 3.6 mmol/L (3.5-5.1); SODIUM 145 mmol/L (135-144)
[2018-07-04 07:20] LABS: IRON 51 ug/dl (35-150)
[2018-07-04 07:21] LABS: MAGNESIUM 2.2 mg/dl (1.7-2.5)
[2018-07-04 07:21] LABS: PHOSPHORUS 4.4 mg/dl (2.5-4.9)
[2018-07-04 07:29] LABS: % IRON SATURATION 17 % SAT (22-52); TOTAL IRON BINDING CAPACITY 303 ug/dl (241-421)
[2018-07-04] MEDS: INSULIN ASPART [NOVOLOG] 3 ML PEN SC ×7 (07:47→20:57)
[2018-07-04 08:27] LABS: FOLATE 11.9 ng/ml (2.8-20.0)
[2018-07-04] MEDS: FUROSEMIDE 40 MG INJ IV ×2 (08:54→20:48)
[2018-07-04] MEDS: ASPIRIN (EC) 81 MG TAB PO (08:54)
[2018-07-04] MEDS: ALLOPURINOL 100 MG TAB PO (08:54)
[2018-07-04] MEDS: AZITHROMYCIN 250 MG TAB PO (08:54)
[2018-07-04] MEDS: LINAGLIPTIN 5 MG TABLET PO (08:55)
[2018-07-04] MEDS: TICAGRELOR 90 MG TABLET PO ×2 (09:06→20:45)
[2018-07-04] MEDS: ATORVASTATIN 20 MG TAB PO (20:47)
[2018-07-04] MEDS: LATANOPROST 0.005% 2.5 ML OPH BOTH EYES (20:48)
[2018-07-05] MEDS: ACCU-CHEK XX (02:00)
[2018-07-05] MEDS: LEVALBUTEROL (NEB) 0.63 MG/3 ML AMP HHN ×3 (02:13→15:33)
[2018-07-05] MEDS: LEVOTHYROXINE 75 MCG TAB PO (05:03)
[2018-07-05] MEDS: PANTOPRAZOLE (EC) 40 MG TAB PO (05:03)
[2018-07-05] MEDS: INSULIN ASPART [NOVOLOG] 3 ML PEN SC ×4 (07:55→12:35)
[2018-07-05 08:11] LABS: ADD MAN DIFF? NO
[2018-07-05 08:18] LABS: BASOPHILS % 0.4 % (0.0-2.0); EOSINOPHILS # 0.1 10^3/ul (0.0-0.5); HEMATOCRIT 26.5 % (42.0-52.0); HEMOGLOBIN 8.6 g/dl (14.0-18.0); LYMPHOCYTES # 1.7 10^3/ul (0.8-2.9); LYMPHOCYTES % 33.5 % (15.0-51.0); MEAN CORPUSCULAR HGB CONC 32.5 g/dl (32.0-37.0); MEAN CORPUSCULAR VOLUME 83.1 fl (82.0-101.0); MEAN PLATELET VOLUME 11.2 fl (7.4-10.4); MONOCYTE # 0.5 10^3/ul (0.3-0.9); MONOCYTES % 9.4 % (0.0-11.0); NEUTROPHIL # 2.7 10^3/ul (1.6-7.5); NEUTROPHILS % 53.5 % (39.0-77.0); PLATELET COUNT 189 10^3/UL (140-415); RED BLOOD COUNT 3.19 10^6/ul (4.70-6.10); RED CELL DISTRIBUTION WIDTH 17.8 % (11.5-14.5)
[2018-07-05 08:18] LABS: WHITE BLOOD COUNT 5.1 10^3/ul (4.8-10.8)
[2018-07-05 08:44] LABS: MAGNESIUM 2.3 mg/dl (1.7-2.5)
[2018-07-05 08:49] LABS: ANION GAP 12 (5-13); BLOOD UREA NITROGEN 37 mg/dl (7-20); CALCIUM 8.8 mg/dl (8.4-10.2); CARBON DIOXIDE 26 mmol/L (21-31); CHLORIDE 107 mmol/L (97-110); CREATININE 1.82 mg/dl (0.61-1.24); GLUCOSE 109 mg/dl (70-220); POTASSIUM 3.8 mmol/L (3.5-5.1); SODIUM 145 mmol/L (135-144)
[2018-07-05] MEDS: ALLOPURINOL 100 MG TAB PO (09:27)
[2018-07-05] MEDS: FUROSEMIDE 40 MG INJ IV (09:27)
[2018-07-05] MEDS: AZITHROMYCIN 250 MG TAB PO (09:28)
[2018-07-05] MEDS: LINAGLIPTIN 5 MG TABLET PO (09:28)
[2018-07-05] MEDS: ASPIRIN (EC) 81 MG TAB PO (09:28)
[2018-07-05 10:02] LABS: LACTATE DEHYDROGENASE 518 IU/L (313-618)
[2018-07-05] MEDS: TICAGRELOR 90 MG TABLET PO (10:37)
[2018-07-06 05:31] LABS: PROTEIN, TOTAL 7.5 g/dL (6.1-8.1)
[2018-07-06 16:07] LABS: HAPTOGLOBIN 228 mg/dL (43-212)
[2018-07-06 22:11] LABS: ALBUMIN 3.7 g/dL (3.8-4.8); ALPHA-1-GLOBULINS 0.5 g/dL (0.2-0.3); ALPHA-2-GLOBULINS 0.9 g/dL (0.5-0.9); BETA 2 GLOBULINS 0.5 g/dL (0.2-0.5); BETA GLOBULINS 0.6 g/dL (0.4-0.6); GAMMA GLOBULINS 1.4 g/dL (0.8-1.7)
[2018-07-08 17:41] LABS: ERYTHROPOIETIN 21.6 mIU/mL (2.6-18.5)
== END 2018-07-05 16:22 | disposition home or self-care (01) | DRG 291 ==
LOC: E/R 12:55 → TEL 15:36
DX: I13.0 Hypertensive heart and chronic kidney disease with heart failure and stage 1 through stage 4 chronic kidney disease, or unspecified chronic kidney disease (principal); I50.23 Acute on chronic systolic (congestive) heart failure; J18.9 Pneumonia, unspecified organism; N17.9 Acute kidney failure, unspecified; N18.3 Chronic kidney disease, stage 3 (moderate); I25.5 Ischemic cardiomyopathy; E11.8 Type 2 diabetes mellitus with unspecified complications; I25.2 Old myocardial infarction; I25.10 Atherosclerotic heart disease of native coronary artery without angina pectoris; Z95.5 Presence of coronary angioplasty implant and graft; Z95.0 Presence of cardiac pacemaker; E03.9 Hypothyroidism, unspecified; M10.9 Gout, unspecified; N40.0 Benign prostatic hyperplasia without lower urinary tract symptoms; Z95.2 Presence of prosthetic heart valve; D64.9 Anemia, unspecified; D69.6 Thrombocytopenia, unspecified
CPT/HCPCS: 36415; 36600; 71045; 80048; 80053; 81003; 82550; 82553; 82607; 82668; 82746; 82803; 82962; 83010; 83036; 83540; 83615; 83690; 83735; 83880; 84100; 84155; 84165; 84443; 84484; 85025; 85045; 93005; 93306; 94640; 94644; 94660; 94664; 96374; 99291-25

== ENCOUNTER 2018-08-25 11:08 | Emergency (ER) | payer MEDICARE, OTHER ==
[2018-08-25 12:00] LABS: ADD MAN DIFF? NO
[2018-08-25 12:03] LABS: ABNORMAL IP MESSAGE 1; BASOPHILS % 0.1 % (0.0-2.0); EOSINOPHILS % 0.5 % (0.0-7.0); HEMATOCRIT 32.9 % (42.0-52.0); HEMOGLOBIN 10.5 g/dl (14.0-18.0); LYMPHOCYTES # 1.6 10^3/ul (0.8-2.9); LYMPHOCYTES % 19.7 % (15.0-51.0); MEAN CORPUSCULAR HEMOGLOBIN 27.1 pg (29.0-33.0); MEAN CORPUSCULAR HGB CONC 31.9 g/dl (32.0-37.0); MEAN PLATELET VOLUME 11.3 fl (7.4-10.4); MONOCYTE # 0.7 10^3/ul (0.3-0.9); MONOCYTES % 8.5 % (0.0-11.0); NEUTROPHIL # 5.2 10^3/ul (1.6-7.5); NEUTROPHILS % 65.5 % (39.0-77.0); NUCLEATED RED BLOOD CELLS% 0.3 /100WBC (0.0-0.0); PLATELET COUNT 195 10^3/UL (140-415); POSITIVE DIFF @See below; RED BLOOD COUNT 3.87 10^6/ul (4.70-6.10); RED CELL DISTRIBUTION WIDTH 18.1 % (11.5-14.5)
[2018-08-25 12:03] LABS: WHITE BLOOD COUNT 7.9 10^3/ul (4.8-10.8)
[2018-08-25 12:37] LABS: INR 0.84; PROTIME 11.6 Sec (11.9-14.9); PT RATIO 0.9
[2018-08-25 12:38] LABS: ALANINE AMINOTRANSFERASE 47 IU/L (13-69); ALBUMIN 4.1 g/dl (3.3-4.9); ALBUMIN/GLOBULIN RATIO 1.13; ALKALINE PHOSPHATASE 104 IU/L (42-121); ANION GAP 11 (5-13); ASPARTATE AMINO TRANSFERASE 56 IU/L (15-46); BILIRUBIN,INDIRECT 0.3 mg/dl (0-1.1); BILIRUBIN,TOTAL 0.3 mg/dl (0.2-1.3); BLOOD UREA NITROGEN 33 mg/dl (7-20); CALCIUM 8.8 mg/dl (8.4-10.2); CARBON DIOXIDE 24 mmol/L (21-31); CHLORIDE 107 mmol/L (97-110); CREATININE 1.42 mg/dl (0.61-1.24); GLUCOSE 86 mg/dl (70-220); SODIUM 142 mmol/L (135-144); TOTAL PROTEIN 7.7 g/dl (6.1-8.1)
[2018-08-25 12:49] LABS: B-TYPE NATRIURETIC PEPTIDE 10100 PG/ML (0-450); TROPONIN-I 0.018 ng/ml (0.000-0.120)
[2018-08-25 13:32] LABS: ANISOCYTOSIS 1+ (0-0); BAND NEUTROPHILS #M 0.3 10^3/ul (0.0-0.6); BAND NEUTROPHILS % (M) 5 % (0-4); GIANT THROMBO% (M) 2 % (0-0); LYMPHOCYTES #M 2.2 10^3/ul (0.8-2.9); LYMPHOCYTES % (M) 29 % (15-51); MICROCYTOSIS 1+ (0-0); MONOCYTE #M 0.1 10^3/ul (0.3-0.9); MONOCYTES % (M) 2 % (0-11); PLATELET ESTIMATE NORMAL; POIKILOCYTOSIS 1+ (0-0); POLYCHROMASIA 2+ (0-0); REACTIVE LYMPHOCYTES #M 0.8 10^3/ul (0.0-0.0); REACTIVE LYMPHOCYTES% (M) 11 % (0-0); SEG NEUT #M 4.2 10^3/ul (1.6-7.5); SEGMENTED NEUTROPHILS (M) % 53 % (39-77); SMUDGE%M 20 % (0-0)
== END 2018-08-25 14:23 | disposition home or self-care (01) ==
LOC: E/R 11:08
DX: R05 Cough (principal); I11.0 Hypertensive heart disease with heart failure; I50.9 Heart failure, unspecified; Z79.82 Long term (current) use of aspirin; Z79.84 Long term (current) use of oral hypoglycemic drugs; Z95.0 Presence of cardiac pacemaker
CPT/HCPCS: 36415; 71045; 80053; 83880; 84484; 85025; 85610; 87400; 99285-25

== ENCOUNTER 2018-09-02 08:34 | Inpatient (IN) | payer MEDICARE, OTHER ==
[2018-09-02 09:20] LABS: ADD MAN DIFF? NO
[2018-09-02 09:30] LABS: BASOPHILS % 0.3 % (0.0-2.0); EOSINOPHILS % 0.4 % (0.0-7.0); HEMATOCRIT 33.6 % (42.0-52.0); HEMOGLOBIN 10.5 g/dl (14.0-18.0); LYMPHOCYTES # 1.5 10^3/ul (0.8-2.9); LYMPHOCYTES % 20.7 % (15.0-51.0); MEAN CORPUSCULAR HEMOGLOBIN 26.9 pg (29.0-33.0); MEAN CORPUSCULAR HGB CONC 31.3 g/dl (32.0-37.0); MEAN CORPUSCULAR VOLUME 85.9 fl (82.0-101.0); MEAN PLATELET VOLUME 11.2 fl (7.4-10.4); MONOCYTE # 0.5 10^3/ul (0.3-0.9); MONOCYTES % 6.4 % (0.0-11.0); NEUTROPHIL # 4.8 10^3/ul (1.6-7.5); NEUTROPHILS % 67.9 % (39.0-77.0); PLATELET COUNT 139 10^3/UL (140-415); RED BLOOD COUNT 3.91 10^6/ul (4.70-6.10); RED CELL DISTRIBUTION WIDTH 18.3 % (11.5-14.5)
[2018-09-02 09:30] LABS: WHITE BLOOD COUNT 7.1 10^3/ul (4.8-10.8)
[2018-09-02 09:40] LABS: ALANINE AMINOTRANSFERASE 79 IU/L (13-69); ALBUMIN 4.2 g/dl (3.3-4.9); ALBUMIN/GLOBULIN RATIO 1.13; ALKALINE PHOSPHATASE 121 IU/L (42-121); ANION GAP 12 (5-13); ASPARTATE AMINO TRANSFERASE 78 IU/L (15-46); BILIRUBIN,INDIRECT 0.6 mg/dl (0-1.1); BILIRUBIN,TOTAL 0.6 mg/dl (0.2-1.3); BLOOD UREA NITROGEN 25 mg/dl (7-20); CALCIUM 9.5 mg/dl (8.4-10.2); CARBON DIOXIDE 25 mmol/L (21-31); CHLORIDE 108 mmol/L (97-110); CREATININE 1.55 mg/dl (0.61-1.24); GLUCOSE 175 mg/dl (70-220); POTASSIUM 4.5 mmol/L (3.5-5.1); SODIUM 145 mmol/L (135-144); TOTAL PROTEIN 7.9 g/dl (6.1-8.1)
[2018-09-02 09:50] LABS: B-TYPE NATRIURETIC PEPTIDE 9980 PG/ML (0-450)
[2018-09-02] MEDS: FUROSEMIDE 40 MG INJ IV ×2 (10:14→18:10)
[2018-09-02] MEDS ORDERED: ACETAMINOPHEN 325 MG TAB PO (12:30)
[2018-09-02] MEDS ORDERED: ONDANSETRON 4 MG INJ IV ×2 (12:30→17:30)
[2018-09-02] MEDS ORDERED: BISACODYL (EC) 5 MG TAB PO (17:30)
[2018-09-02] MEDS ORDERED: NACL 0.9% 3 ML SYG IV (17:30)
[2018-09-02] MEDS ORDERED: DOCUSATE SODIUM 100 MG CAP PO (17:30)
[2018-09-02 18:57] LABS: CREATINE KINASE 39 IU/L (23-200)
[2018-09-02 19:10] LABS: CK INDEX 2.9; CK-MB 1.13 ng/ml (0.0-2.4); TROPONIN-I 0.035 ng/ml (0.000-0.120)
[2018-09-02] MEDS ORDERED: GLUCOSE GEL 15 GRAM TUBE PO ×2 (19:30)
[2018-09-02] MEDS ORDERED: GLUCOSE GEL 15 GRAM TUBE BUCCAL (19:30)
[2018-09-02] MEDS ORDERED: DEXTROSE 50% 50 ML SYRINGE IV ×2 (19:30)
[2018-09-02] MEDS ORDERED: GLUCAGON 1 MG INJ IM (19:30)
[2018-09-02] MEDS: ALBUTEROL/IPRATROPIUM (NEB) 3 ML AMP HHN (20:00)
[2018-09-02] MEDS: INSULIN ASPART [NOVOLOG] 3 ML PEN SC (21:00)
[2018-09-02] MEDS: ATORVASTATIN 20 MG TAB PO (21:25)
[2018-09-02] MEDS: LATANOPROST 0.005% 2.5 ML OPH BOTH EYES (21:25)
[2018-09-02] MEDS: TICAGRELOR 90 MG TABLET PO (22:06)
[2018-09-03 01:21] LABS: CREATINE KINASE 34 IU/L (23-200)
[2018-09-03 01:36] LABS: CK INDEX 2.4; CK-MB 0.81 ng/ml (0.0-2.4); TROPONIN-I 0.044 ng/ml (0.000-0.120)
[2018-09-03] MEDS: ACCU-CHEK XX (02:00)
[2018-09-03 06:22] LABS: ADD MAN DIFF? NO; BASOPHILS % 0.2 % (0.0-2.0); EOSINOPHILS # 0.1 10^3/ul (0.0-0.5); EOSINOPHILS % 0.9 % (0.0-7.0); HEMATOCRIT 32.1 % (42.0-52.0); HEMOGLOBIN 10.3 g/dl (14.0-18.0); LYMPHOCYTES # 2.1 10^3/ul (0.8-2.9); LYMPHOCYTES % 33.1 % (15.0-51.0); MEAN CORPUSCULAR HEMOGLOBIN 26.9 pg (29.0-33.0); MEAN CORPUSCULAR HGB CONC 32.1 g/dl (32.0-37.0); MEAN CORPUSCULAR VOLUME 83.8 fl (82.0-101.0); MONOCYTE # 0.5 10^3/ul (0.3-0.9); MONOCYTES % 8.4 % (0.0-11.0); NEUTROPHIL # 3.5 10^3/ul (1.6-7.5); NEUTROPHILS % 53.7 % (39.0-77.0); PLATELET COUNT 133 10^3/UL (140-415); RED BLOOD COUNT 3.83 10^6/ul (4.70-6.10); RED CELL DISTRIBUTION WIDTH 18.1 % (11.5-14.5)
[2018-09-03 06:22] LABS: WHITE BLOOD COUNT 6.4 10^3/ul (4.8-10.8)
[2018-09-03] MEDS: PANTOPRAZOLE (EC) 40 MG TAB PO (06:40)
[2018-09-03] MEDS: LEVOTHYROXINE 75 MCG TAB PO (06:40)
[2018-09-03] MEDS: FUROSEMIDE 40 MG INJ IV ×2 (06:41→18:03)
[2018-09-03 06:46] LABS: ANION GAP 13 (5-13); BLOOD UREA NITROGEN 25 mg/dl (7-20); CARBON DIOXIDE 29 mmol/L (21-31); CHLORIDE 103 mmol/L (97-110); CREATININE 1.51 mg/dl (0.61-1.24); GLUCOSE 137 mg/dl (70-220); POTASSIUM 3.5 mmol/L (3.5-5.1); SODIUM 145 mmol/L (135-144)
[2018-09-03 06:50] LABS: CHOLESTEROL 132 mg/dl (100-200)
[2018-09-03 06:50] LABS: CHOL/HDL RATIO 3.1 RATIO; HDL CHOLESTEROL 42 mg/dl (31-75); LDL CHOLESTEROL,CALCULATED 74 mg/dl; TRIGLYCERIDES 80 mg/dl (0-149)
[2018-09-03 06:51] LABS: CREATINE KINASE 34 IU/L (23-200)
[2018-09-03 06:57] LABS: CK INDEX 2.3; CK-MB 0.78 ng/ml (0.0-2.4); TROPONIN-I 0.044 ng/ml (0.000-0.120)
[2018-09-03] MEDS: INSULIN ASPART [NOVOLOG] 3 ML PEN SC ×4 (07:55→21:00)
[2018-09-03] MEDS: ALLOPURINOL 100 MG TAB PO (08:19)
[2018-09-03] MEDS: ASPIRIN (EC) 81 MG TAB PO (08:20)
[2018-09-03] MEDS: ISOSORBIDE MONONITRATE(SR)60 MG TAB PO (08:20)
[2018-09-03] MEDS: TICAGRELOR 90 MG TABLET PO ×2 (08:21→21:19)
[2018-09-03] MEDS: ALBUTEROL/IPRATROPIUM (NEB) 3 ML AMP HHN ×3 (08:43→20:25)
[2018-09-03] MEDS: ACETAMINOPHEN 325 MG TAB PO (14:38)
[2018-09-03] MEDS: traMADol 50 MG TAB PO (20:07)
[2018-09-03] MEDS: ATORVASTATIN 20 MG TAB PO (21:14)
[2018-09-03] MEDS: ZOLPIDEM 5 MG TAB PO (21:15)
[2018-09-03] MEDS: LATANOPROST 0.005% 2.5 ML OPH BOTH EYES (21:15)
[2018-09-04] MEDS: ACCU-CHEK XX (02:00)
[2018-09-04] MEDS: PANTOPRAZOLE (EC) 40 MG TAB PO (05:52)
[2018-09-04] MEDS: FUROSEMIDE 40 MG INJ IV (05:52)
[2018-09-04] MEDS: LEVOTHYROXINE 75 MCG TAB PO (05:52)
[2018-09-04 07:10] LABS: ANION GAP 13 (5-13); BLOOD UREA NITROGEN 35 mg/dl (7-20); CALCIUM 9.1 mg/dl (8.4-10.2); CARBON DIOXIDE 27 mmol/L (21-31); CHLORIDE 103 mmol/L (97-110); GLUCOSE 130 mg/dl (70-220); POTASSIUM 3.4 mmol/L (3.5-5.1); SODIUM 143 mmol/L (135-144)
[2018-09-04] MEDS: ISOSORBIDE MONONITRATE(SR)60 MG TAB PO (08:07)
[2018-09-04] MEDS: ALLOPURINOL 100 MG TAB PO (08:07)
[2018-09-04] MEDS: ASPIRIN (EC) 81 MG TAB PO (08:08)
[2018-09-04] MEDS: TICAGRELOR 90 MG TABLET PO ×2 (08:12→20:24)
[2018-09-04] MEDS: INSULIN ASPART [NOVOLOG] 3 ML PEN SC ×4 (08:12→20:16)
[2018-09-04] MEDS: ALBUTEROL/IPRATROPIUM (NEB) 3 ML AMP HHN ×3 (08:54→20:37)
[2018-09-04] MEDS: MUPIROCIN 2% 22 GM OINT TOP ×2 (10:32→20:17)
[2018-09-04] MEDS: POTASSIUM CHLORIDE (SR) 20 MEQ TAB PO (11:35)
[2018-09-04] MEDS: LATANOPROST 0.005% 2.5 ML OPH BOTH EYES (20:15)
[2018-09-04] MEDS: ATORVASTATIN 20 MG TAB PO (20:16)
[2018-09-05] MEDS: ACCU-CHEK XX (01:53)
[2018-09-05] MEDS: PANTOPRAZOLE (EC) 40 MG TAB PO (06:19)
[2018-09-05] MEDS: LEVOTHYROXINE 75 MCG TAB PO (06:20)
[2018-09-05 06:43] LABS: ADD MAN DIFF? NO
[2018-09-05 06:51] LABS: WHITE BLOOD COUNT 5.2 10^3/ul (4.8-10.8)
[2018-09-05 06:51] LABS: BASOPHILS % 0.2 % (0.0-2.0); EOSINOPHILS # 0.1 10^3/ul (0.0-0.5); EOSINOPHILS % 1.3 % (0.0-7.0); HEMATOCRIT 34.7 % (42.0-52.0); HEMOGLOBIN 11.1 g/dl (14.0-18.0); LYMPHOCYTES # 1.7 10^3/ul (0.8-2.9); LYMPHOCYTES % 33.4 % (15.0-51.0); MEAN CORPUSCULAR HEMOGLOBIN 26.7 pg (29.0-33.0); MEAN CORPUSCULAR VOLUME 83.6 fl (82.0-101.0); MEAN PLATELET VOLUME 10.3 fl (7.4-10.4); MONOCYTE # 0.4 10^3/ul (0.3-0.9); MONOCYTES % 6.9 % (0.0-11.0); NEUTROPHILS % 56.9 % (39.0-77.0); PLATELET COUNT 132 10^3/UL (140-415); RED BLOOD COUNT 4.15 10^6/ul (4.70-6.10); RED CELL DISTRIBUTION WIDTH 17.8 % (11.5-14.5)
[2018-09-05 07:07] LABS: MAGNESIUM 2.3 mg/dl (1.7-2.5)
[2018-09-05 07:12] LABS: ANION GAP 11 (5-13); BLOOD UREA NITROGEN 36 mg/dl (7-20); CALCIUM 9.2 mg/dl (8.4-10.2); CARBON DIOXIDE 26 mmol/L (21-31); CHLORIDE 108 mmol/L (97-110); GLUCOSE 123 mg/dl (70-220); SODIUM 145 mmol/L (135-144)
[2018-09-05] MEDS: ALBUTEROL/IPRATROPIUM (NEB) 3 ML AMP HHN ×3 (07:44→20:19)
[2018-09-05] MEDS: INSULIN ASPART [NOVOLOG] 3 ML PEN SC ×4 (07:55→20:36)
[2018-09-05] MEDS: ALLOPURINOL 100 MG TAB PO (09:47)
[2018-09-05] MEDS: ASPIRIN (EC) 81 MG TAB PO (09:48)
[2018-09-05] MEDS: ISOSORBIDE MONONITRATE(SR)60 MG TAB PO (09:48)
[2018-09-05] MEDS: MUPIROCIN 2% 22 GM OINT TOP ×2 (09:49→20:52)
[2018-09-05] MEDS: FUROSEMIDE 40 MG INJ IV (09:49)
[2018-09-05] MEDS: TICAGRELOR 90 MG TABLET PO ×2 (09:55→21:03)
[2018-09-05] MEDS: FUROSEMIDE 40 MG TAB PO (17:22)
[2018-09-05] MEDS: ATORVASTATIN 20 MG TAB PO (20:50)
[2018-09-05] MEDS: LATANOPROST 0.005% 2.5 ML OPH BOTH EYES (20:51)
[2018-09-06] MEDS: ACCU-CHEK XX (02:00)
[2018-09-06] MEDS: PANTOPRAZOLE (EC) 40 MG TAB PO (06:03)
[2018-09-06] MEDS: FUROSEMIDE 40 MG TAB PO (06:04)
[2018-09-06] MEDS: LEVOTHYROXINE 75 MCG TAB PO (06:04)
[2018-09-06 06:51] LABS: ANION GAP 6 (5-13); BLOOD UREA NITROGEN 45 mg/dl (7-20); CALCIUM 9.1 mg/dl (8.4-10.2); CARBON DIOXIDE 28 mmol/L (21-31); CHLORIDE 110 mmol/L (97-110); CREATININE 1.79 mg/dl (0.61-1.24); GLUCOSE 147 mg/dl (70-220); POTASSIUM 3.7 mmol/L (3.5-5.1); SODIUM 144 mmol/L (135-144)
[2018-09-06] MEDS: ALBUTEROL/IPRATROPIUM (NEB) 3 ML AMP HHN ×2 (07:40→14:07)
[2018-09-06] MEDS: ISOSORBIDE MONONITRATE(SR)60 MG TAB PO (08:18)
[2018-09-06] MEDS: ASPIRIN (EC) 81 MG TAB PO (08:18)
[2018-09-06] MEDS: ALLOPURINOL 100 MG TAB PO (08:18)
[2018-09-06] MEDS: MUPIROCIN 2% 22 GM OINT TOP (08:20)
[2018-09-06] MEDS: TICAGRELOR 90 MG TABLET PO (08:27)
[2018-09-06] MEDS: INSULIN ASPART [NOVOLOG] 3 ML PEN SC ×2 (08:27→12:06)
== END 2018-09-06 14:49 | disposition home or self-care (01) | DRG 291 ==
LOC: E/R 08:34 → TEL 12:26
PROVIDERS: Internal Medicine
DX: I13.0 Hypertensive heart and chronic kidney disease with heart failure and stage 1 through stage 4 chronic kidney disease, or unspecified chronic kidney disease (principal); I50.23 Acute on chronic systolic (congestive) heart failure; E87.0 Hyperosmolality and hypernatremia; E11.22 Type 2 diabetes mellitus with diabetic chronic kidney disease; I42.9 Cardiomyopathy, unspecified; N18.3 Chronic kidney disease, stage 3 (moderate); Z95.2 Presence of prosthetic heart valve; E03.9 Hypothyroidism, unspecified; E78.5 Hyperlipidemia, unspecified; I25.10 Atherosclerotic heart disease of native coronary artery without angina pectoris; Z79.4 Long term (current) use of insulin; Z79.82 Long term (current) use of aspirin; Z95.5 Presence of coronary angioplasty implant and graft; Z95.810 Presence of automatic (implantable) cardiac defibrillator; Z95.0 Presence of cardiac pacemaker
CPT/HCPCS: 36415; 71045; 74176; 76700; 80048; 80053; 80061; 82550; 82553; 82962; 83605; 83735; 83880; 84100; 84484; 85025; 87081; 93005; 94640; 94664; 96374; 99285-25

== ENCOUNTER 2018-09-28 18:29 | Inpatient (IN) | payer MEDICARE, MEDICAID, OTHER ==
[2018-09-28] MEDS: FUROSEMIDE 40 MG INJ IV (19:32)
[2018-09-28 20:01] LABS: ADD MAN DIFF? NO
[2018-09-28 20:08] LABS: WHITE BLOOD COUNT 7.8 10^3/ul (4.8-10.8)
[2018-09-28 20:08] LABS: BASOPHILS % 0.1 % (0.0-2.0); EOSINOPHILS # 0.1 10^3/ul (0.0-0.5); EOSINOPHILS % 1.3 % (0.0-7.0); HEMATOCRIT 32.9 % (42.0-52.0); HEMOGLOBIN 10.5 g/dl (14.0-18.0); LYMPHOCYTES # 1.6 10^3/ul (0.8-2.9); LYMPHOCYTES % 20.9 % (15.0-51.0); MEAN CORPUSCULAR HEMOGLOBIN 27.2 pg (29.0-33.0); MEAN CORPUSCULAR HGB CONC 31.9 g/dl (32.0-37.0); MEAN CORPUSCULAR VOLUME 85.2 fl (82.0-101.0); MEAN PLATELET VOLUME 10.5 fl (7.4-10.4); MONOCYTE # 0.4 10^3/ul (0.3-0.9); MONOCYTES % 4.9 % (0.0-11.0); NEUTROPHIL # 5.4 10^3/ul (1.6-7.5); NEUTROPHILS % 68.7 % (39.0-77.0); PLATELET COUNT 127 10^3/UL (140-415); RED BLOOD COUNT 3.86 10^6/ul (4.70-6.10); RED CELL DISTRIBUTION WIDTH 17.2 % (11.5-14.5)
[2018-09-28 20:25] LABS: ALANINE AMINOTRANSFERASE 31 IU/L (13-69); ALBUMIN 4.4 g/dl (3.3-4.9); ALBUMIN/GLOBULIN RATIO 1.15; ALKALINE PHOSPHATASE 109 IU/L (42-121); ANION GAP 10 (5-13); ASPARTATE AMINO TRANSFERASE 45 IU/L (15-46); BILIRUBIN,INDIRECT 0.4 mg/dl (0-1.1); BILIRUBIN,TOTAL 0.4 mg/dl (0.2-1.3); BLOOD UREA NITROGEN 32 mg/dl (7-20); CALCIUM 9.4 mg/dl (8.4-10.2); CARBON DIOXIDE 25 mmol/L (21-31); CHLORIDE 107 mmol/L (97-110); GLUCOSE 191 mg/dl (70-220); POTASSIUM 3.8 mmol/L (3.5-5.1); SODIUM 142 mmol/L (135-144); TOTAL PROTEIN 8.2 g/dl (6.1-8.1)
[2018-09-28 20:37] LABS: B-TYPE NATRIURETIC PEPTIDE 8870 PG/ML (0-450); TROPONIN-I 0.013 ng/ml (0.000-0.120)
[2018-09-28] MEDS ORDERED: ACETAMINOPHEN 325 MG TAB PO (22:00)
[2018-09-28] MEDS ORDERED: ONDANSETRON 4 MG INJ IV (22:00)
[2018-09-29] MEDS ORDERED: ALBUTEROL HFA 8 GM INHALER INH
[2018-09-29] MEDS ORDERED: ACETAMINOPHEN 325 MG TAB PO
[2018-09-29] MEDS ORDERED: ONDANSETRON 4 MG INJ IV
[2018-09-29] MEDS ORDERED: GLUCOSE GEL 15 GRAM TUBE PO ×2 (00:30)
[2018-09-29] MEDS ORDERED: DEXTROSE 50% 50 ML SYRINGE IV ×2 (00:30)
[2018-09-29] MEDS ORDERED: GLUCOSE GEL 15 GRAM TUBE BUCCAL (00:30)
[2018-09-29] MEDS ORDERED: GLUCAGON 1 MG INJ IM (00:30)
[2018-09-29] MEDS: ACCU-CHEK XX (01:42)
[2018-09-29 01:48] LABS: TROPONIN-I 0.019 ng/ml (0.000-0.120)
[2018-09-29 05:54] LABS: ADD MAN DIFF? NO
[2018-09-29] MEDS: FUROSEMIDE 40 MG INJ IV ×3 (05:54→17:42)
[2018-09-29 06:00] LABS: BASOPHILS % 0.1 % (0.0-2.0); EOSINOPHILS # 0.1 10^3/ul (0.0-0.5); EOSINOPHILS % 1.5 % (0.0-7.0); HEMATOCRIT 32.1 % (42.0-52.0); HEMOGLOBIN 10.4 g/dl (14.0-18.0); LYMPHOCYTES # 2.6 10^3/ul (0.8-2.9); LYMPHOCYTES % 38.2 % (15.0-51.0); MEAN CORPUSCULAR HEMOGLOBIN 26.9 pg (29.0-33.0); MEAN CORPUSCULAR HGB CONC 32.4 g/dl (32.0-37.0); MEAN CORPUSCULAR VOLUME 83.2 fl (82.0-101.0); MEAN PLATELET VOLUME 11.1 fl (7.4-10.4); MONOCYTE # 0.5 10^3/ul (0.3-0.9); MONOCYTES % 7.4 % (0.0-11.0); NEUTROPHIL # 3.5 10^3/ul (1.6-7.5); NEUTROPHILS % 50.5 % (39.0-77.0); PLATELET COUNT 129 10^3/UL (140-415); RED BLOOD COUNT 3.86 10^6/ul (4.70-6.10); RED CELL DISTRIBUTION WIDTH 17.2 % (11.5-14.5)
[2018-09-29 06:00] LABS: WHITE BLOOD COUNT 6.9 10^3/ul (4.8-10.8)
[2018-09-29] MEDS: LEVOTHYROXINE 75 MCG TAB PO (06:23)
[2018-09-29 06:39] LABS: TROPONIN-I 0.022 ng/ml (0.000-0.120)
[2018-09-29 06:50] LABS: ALANINE AMINOTRANSFERASE 27 IU/L (13-69); ALBUMIN/GLOBULIN RATIO 1.25; ALKALINE PHOSPHATASE 96 IU/L (42-121); ANION GAP 9 (5-13); ASPARTATE AMINO TRANSFERASE 34 IU/L (15-46); BILIRUBIN,INDIRECT 0.5 mg/dl (0-1.1); BILIRUBIN,TOTAL 0.5 mg/dl (0.2-1.3); BLOOD UREA NITROGEN 32 mg/dl (7-20); CALCIUM 9.3 mg/dl (8.4-10.2); CARBON DIOXIDE 25 mmol/L (21-31); CHLORIDE 111 mmol/L (97-110); GLUCOSE 129 mg/dl (70-220); POTASSIUM 3.7 mmol/L (3.5-5.1); SODIUM 145 mmol/L (135-144); TOTAL PROTEIN 7.2 g/dl (6.1-8.1)
[2018-09-29] MEDS: INSULIN ASPART [NOVOLOG] 3 ML PEN SC ×4 (07:57→21:00)
[2018-09-29] MEDS: ISOSORBIDE MONONITRATE(SR)60 MG TAB PO (08:35)
[2018-09-29] MEDS: ALLOPURINOL 100 MG TAB PO (08:36)
[2018-09-29] MEDS: ASPIRIN (EC) 81 MG TAB PO (08:36)
[2018-09-29] MEDS: TICAGRELOR 90 MG TABLET PO ×2 (08:40→21:27)
[2018-09-29] MEDS ORDERED: FUROSEMIDE 40 MG TAB PO (09:00)
[2018-09-29] MEDS: LATANOPROST 0.005% 2.5 ML OPH BOTH EYES (21:24)
[2018-09-29] MEDS: ATORVASTATIN 20 MG TAB PO (21:25)
[2018-09-30] MEDS: ACCU-CHEK XX (02:00)
[2018-09-30] MEDS: FUROSEMIDE 40 MG INJ IV ×2 (05:21→17:40)
[2018-09-30 06:48] LABS: ANION GAP 11 (5-13); BLOOD UREA NITROGEN 31 mg/dl (7-20); CALCIUM 9.3 mg/dl (8.4-10.2); CARBON DIOXIDE 26 mmol/L (21-31); CHLORIDE 107 mmol/L (97-110); CREATININE 1.66 mg/dl (0.61-1.24); GLUCOSE 139 mg/dl (70-220); POTASSIUM 3.4 mmol/L (3.5-5.1); SODIUM 144 mmol/L (135-144)
[2018-09-30 06:50] LABS: CHOL/HDL RATIO 3.2 RATIO; HDL CHOLESTEROL 44 mg/dl (31-75); LDL CHOLESTEROL,CALCULATED 84 mg/dl; TRIGLYCERIDES 72 mg/dl (0-149)
[2018-09-30 06:50] LABS: CHOLESTEROL 142 mg/dl (100-200)
[2018-09-30] MEDS: LEVOTHYROXINE 75 MCG TAB PO (06:51)
[2018-09-30 06:53] LABS: TROPONIN-I 0.025 ng/ml (0.000-0.120)
[2018-09-30] MEDS: INSULIN ASPART [NOVOLOG] 3 ML PEN SC ×4 (07:51→21:00)
[2018-09-30] MEDS: ISOSORBIDE MONONITRATE(SR)60 MG TAB PO (08:14)
[2018-09-30] MEDS: ALLOPURINOL 100 MG TAB PO (08:14)
[2018-09-30] MEDS: ASPIRIN (EC) 81 MG TAB PO (08:14)
[2018-09-30] MEDS: TICAGRELOR 90 MG TABLET PO ×2 (08:17→21:49)
[2018-09-30] MEDS: POTASSIUM CHLORIDE (SR) 20 MEQ TAB PO (10:08)
[2018-09-30] MEDS ORDERED: METOLAZONE 2.5 MG TAB PO (10:30)
[2018-09-30 11:12] LABS: AADO2 Arterial 27.8 mmHg (7.0-24.0); Allen Test ACCEPTAB; Arterial Base Excess 1.9 mmol/L (-3.0-3); Arterial Blood Gas Oxygen Sat 94.9 mmHG (95.0-100.0); Arterial COHb 0.3 % (0.0-3.0); Arterial Fraction of Oxyhgb 94.4 % (93.0-99.0); Arterial HCO3 25.8 mmol/L (22.0-26.0); Arterial MetHb 0.2 % (0.0-1.5); Arterial pCO2 37.7 mmhg (35-45); MODE ROOM AIR; Site Right Radial
[2018-09-30] MEDS: METOLAZONE 2.5 MG TAB PO (17:13)
[2018-09-30] MEDS: LATANOPROST 0.005% 2.5 ML OPH BOTH EYES (21:39)
[2018-09-30] MEDS: ATORVASTATIN 20 MG TAB PO (21:40)
[2018-10-01] MEDS: ACCU-CHEK XX (02:27)
[2018-10-01 06:20] LABS: ANION GAP 10 (5-13); BLOOD UREA NITROGEN 43 mg/dl (7-20); CALCIUM 9.8 mg/dl (8.4-10.2); CARBON DIOXIDE 29 mmol/L (21-31); CHLORIDE 104 mmol/L (97-110); CREATININE 1.89 mg/dl (0.61-1.24); GLUCOSE 134 mg/dl (70-220); POTASSIUM 3.6 mmol/L (3.5-5.1); SODIUM 143 mmol/L (135-144)
[2018-10-01 06:21] LABS: MAGNESIUM 2.4 mg/dl (1.7-2.5)
[2018-10-01 06:21] LABS: PHOSPHORUS 5.2 mg/dl (2.5-4.9)
[2018-10-01] MEDS: FUROSEMIDE 40 MG INJ IV ×2 (06:26→17:45)
[2018-10-01] MEDS: LEVOTHYROXINE 75 MCG TAB PO (07:12)
[2018-10-01] MEDS: INSULIN ASPART [NOVOLOG] 3 ML PEN SC ×4 (07:45→21:00)
[2018-10-01] MEDS: ASPIRIN (EC) 81 MG TAB PO (08:18)
[2018-10-01] MEDS: ISOSORBIDE MONONITRATE(SR)60 MG TAB PO (08:18)
[2018-10-01] MEDS: TICAGRELOR 90 MG TABLET PO ×2 (08:24→21:06)
[2018-10-01] MEDS: METOLAZONE 2.5 MG TAB PO (17:10)
[2018-10-01] MEDS: LATANOPROST 0.005% 2.5 ML OPH BOTH EYES (20:55)
[2018-10-01] MEDS: ATORVASTATIN 20 MG TAB PO (20:56)
[2018-10-02] MEDS: ACCU-CHEK XX (02:30)
[2018-10-02] MEDS: LEVOTHYROXINE 75 MCG TAB PO (05:39)
[2018-10-02] MEDS: FUROSEMIDE 40 MG INJ IV (05:39)
[2018-10-02 06:31] LABS: ANION GAP 16 (5-13); BLOOD UREA NITROGEN 62 mg/dl (7-20); CALCIUM 9.5 mg/dl (8.4-10.2); CARBON DIOXIDE 25 mmol/L (21-31); CHLORIDE 99 mmol/L (97-110); CREATININE 2.25 mg/dl (0.61-1.24); GLUCOSE 148 mg/dl (70-220); POTASSIUM 3.2 mmol/L (3.5-5.1); SODIUM 140 mmol/L (135-144)
[2018-10-02] MEDS: INSULIN ASPART [NOVOLOG] 3 ML PEN SC ×4 (08:04→20:12)
[2018-10-02] MEDS: POTASSIUM CHLORIDE (SR) 20 MEQ TAB PO (08:36)
[2018-10-02] MEDS: ASPIRIN (EC) 81 MG TAB PO (08:37)
[2018-10-02] MEDS: ISOSORBIDE MONONITRATE(SR)60 MG TAB PO (08:37)
[2018-10-02] MEDS: TICAGRELOR 90 MG TABLET PO ×2 (08:43→20:12)
[2018-10-02] MEDS: ATORVASTATIN 20 MG TAB PO (19:53)
[2018-10-02] MEDS: LATANOPROST 0.005% 2.5 ML OPH BOTH EYES (19:55)
[2018-10-03] MEDS: ACCU-CHEK XX (02:00)
[2018-10-03] MEDS: LEVOTHYROXINE 75 MCG TAB PO (06:04)
[2018-10-03 07:07] LABS: ANION GAP 17 (5-13); BLOOD UREA NITROGEN 74 mg/dl (7-20); CALCIUM 9.1 mg/dl (8.4-10.2); CARBON DIOXIDE 22 mmol/L (21-31); CHLORIDE 103 mmol/L (97-110); GLUCOSE 153 mg/dl (70-220); POTASSIUM 3.7 mmol/L (3.5-5.1); SODIUM 142 mmol/L (135-144)
[2018-10-03] MEDS: ASPIRIN (EC) 81 MG TAB PO (08:10)
[2018-10-03] MEDS: ISOSORBIDE MONONITRATE(SR)60 MG TAB PO (08:10)
[2018-10-03] MEDS: INSULIN ASPART [NOVOLOG] 3 ML PEN SC ×4 (08:24→21:00)
[2018-10-03] MEDS: TICAGRELOR 90 MG TABLET PO ×2 (08:24→21:24)
[2018-10-03] MEDS: LATANOPROST 0.005% 2.5 ML OPH BOTH EYES (21:15)
[2018-10-03] MEDS: ATORVASTATIN 20 MG TAB PO (21:16)
[2018-10-04] MEDS: ACCU-CHEK XX (02:00)
[2018-10-04] MEDS: LEVOTHYROXINE 75 MCG TAB PO (04:44)
[2018-10-04 06:02] LABS: ANION GAP 15 (5-13); BLOOD UREA NITROGEN 73 mg/dl (7-20); CARBON DIOXIDE 25 mmol/L (21-31); CHLORIDE 101 mmol/L (97-110); CREATININE 2.66 mg/dl (0.61-1.24); GLUCOSE 136 mg/dl (70-220); POTASSIUM 3.7 mmol/L (3.5-5.1); SODIUM 141 mmol/L (135-144)
[2018-10-04] MEDS: INSULIN ASPART [NOVOLOG] 3 ML PEN SC ×4 (08:04→20:17)
[2018-10-04] MEDS: ASPIRIN (EC) 81 MG TAB PO (09:44)
[2018-10-04] MEDS: ISOSORBIDE MONONITRATE(SR)60 MG TAB PO (09:45)
[2018-10-04] MEDS: TICAGRELOR 90 MG TABLET PO ×2 (09:48→20:23)
[2018-10-04] MEDS: ATORVASTATIN 20 MG TAB PO (20:16)
[2018-10-04] MEDS: LATANOPROST 0.005% 2.5 ML OPH BOTH EYES (20:18)
[2018-10-05] MEDS: ACCU-CHEK XX (02:00)
[2018-10-05 05:55] LABS: ADD MAN DIFF? NO
[2018-10-05 06:05] LABS: WHITE BLOOD COUNT 5.6 10^3/ul (4.8-10.8)
[2018-10-05 06:05] LABS: BASOPHILS % 0.2 % (0.0-2.0); EOSINOPHILS # 0.1 10^3/ul (0.0-0.5); EOSINOPHILS % 1.8 % (0.0-7.0); HEMATOCRIT 33.9 % (42.0-52.0); HEMOGLOBIN 10.9 g/dl (14.0-18.0); LYMPHOCYTES # 2.4 10^3/ul (0.8-2.9); LYMPHOCYTES % 42.9 % (15.0-51.0); MEAN CORPUSCULAR HEMOGLOBIN 26.3 pg (29.0-33.0); MEAN CORPUSCULAR HGB CONC 32.2 g/dl (32.0-37.0); MEAN CORPUSCULAR VOLUME 81.9 fl (82.0-101.0); MEAN PLATELET VOLUME 11.6 fl (7.4-10.4); MONOCYTE # 0.6 10^3/ul (0.3-0.9); MONOCYTES % 10.8 % (0.0-11.0); NEUTROPHIL # 2.4 10^3/ul (1.6-7.5); NEUTROPHILS % 42.9 % (39.0-77.0); PLATELET COUNT 156 10^3/UL (140-415); RED BLOOD COUNT 4.14 10^6/ul (4.70-6.10)
[2018-10-05] MEDS: LEVOTHYROXINE 75 MCG TAB PO (06:05)
[2018-10-05 06:30] LABS: ANION GAP 13 (5-13); BLOOD UREA NITROGEN 78 mg/dl (7-20); CALCIUM 9.1 mg/dl (8.4-10.2); CARBON DIOXIDE 25 mmol/L (21-31); CHLORIDE 103 mmol/L (97-110); CREATININE 2.39 mg/dl (0.61-1.24); GLUCOSE 121 mg/dl (70-220); POTASSIUM 3.6 mmol/L (3.5-5.1); SODIUM 141 mmol/L (135-144)
[2018-10-05 06:53] LABS: THYROID STIMULATING HORMONE 0.552 MIU/L (0.465-4.680)
[2018-10-05] MEDS: INSULIN ASPART [NOVOLOG] 3 ML PEN SC ×4 (08:00→20:45)
[2018-10-05] MEDS: ASPIRIN (EC) 81 MG TAB PO (08:09)
[2018-10-05] MEDS: ISOSORBIDE MONONITRATE(SR)60 MG TAB PO (08:09)
[2018-10-05] MEDS: TICAGRELOR 90 MG TABLET PO ×2 (08:23→20:46)
[2018-10-05] MEDS: FUROSEMIDE 20 MG TAB PO (14:32)
[2018-10-05] MEDS: ATORVASTATIN 20 MG TAB PO (20:40)
[2018-10-05] MEDS: LATANOPROST 0.005% 2.5 ML OPH BOTH EYES (22:06)
[2018-10-06] MEDS: ACCU-CHEK XX (02:00)
[2018-10-06 06:24] LABS: ADD MAN DIFF? NO
[2018-10-06 06:37] LABS: WHITE BLOOD COUNT 5.4 10^3/ul (4.8-10.8)
[2018-10-06 06:37] LABS: BASOPHILS % 0.2 % (0.0-2.0); EOSINOPHILS # 0.1 10^3/ul (0.0-0.5); EOSINOPHILS % 1.7 % (0.0-7.0); HEMATOCRIT 34.3 % (42.0-52.0); HEMOGLOBIN 11.1 g/dl (14.0-18.0); LYMPHOCYTES # 2.3 10^3/ul (0.8-2.9); LYMPHOCYTES % 42.8 % (15.0-51.0); MEAN CORPUSCULAR HEMOGLOBIN 26.4 pg (29.0-33.0); MEAN CORPUSCULAR HGB CONC 32.4 g/dl (32.0-37.0); MEAN CORPUSCULAR VOLUME 81.7 fl (82.0-101.0); MEAN PLATELET VOLUME 11.4 fl (7.4-10.4); MONOCYTE # 0.6 10^3/ul (0.3-0.9); MONOCYTES % 10.3 % (0.0-11.0); NEUTROPHIL # 2.2 10^3/ul (1.6-7.5); NEUTROPHILS % 41.1 % (39.0-77.0); PLATELET COUNT 156 10^3/UL (140-415); RED CELL DISTRIBUTION WIDTH 16.8 % (11.5-14.5)
[2018-10-06] MEDS: LEVOTHYROXINE 75 MCG TAB PO (06:43)
[2018-10-06 06:52] LABS: ANION GAP 16 (5-13); BLOOD UREA NITROGEN 82 mg/dl (7-20); CALCIUM 9.1 mg/dl (8.4-10.2); CARBON DIOXIDE 25 mmol/L (21-31); CHLORIDE 102 mmol/L (97-110); CREATININE 2.24 mg/dl (0.61-1.24); GLUCOSE 115 mg/dl (70-220); POTASSIUM 3.4 mmol/L (3.5-5.1); SODIUM 143 mmol/L (135-144)
[2018-10-06] MEDS: INSULIN ASPART [NOVOLOG] 3 ML PEN SC ×4 (07:34→21:00)
[2018-10-06] MEDS: FUROSEMIDE 20 MG TAB PO (08:25)
[2018-10-06] MEDS: ASPIRIN (EC) 81 MG TAB PO (08:25)
[2018-10-06] MEDS: ISOSORBIDE MONONITRATE(SR)60 MG TAB PO (08:25)
[2018-10-06] MEDS: TICAGRELOR 90 MG TABLET PO ×2 (08:29→22:01)
[2018-10-06] MEDS: POTASSIUM CHLORIDE 20 MEQ POWDER FOR ORAL SOLN PO (12:04)
[2018-10-06] MEDS: SOD CHLORIDE 0.9% 1,000 ML IV (17:47)
[2018-10-06] MEDS: ATORVASTATIN 20 MG TAB PO (21:52)
[2018-10-06] MEDS: LATANOPROST 0.005% 2.5 ML OPH BOTH EYES (21:52)
[2018-10-07] MEDS: ACCU-CHEK XX (02:00)
[2018-10-07 05:15] LABS: ADD MAN DIFF? NO
[2018-10-07 05:22] LABS: BASOPHILS % 0.2 % (0.0-2.0); EOSINOPHILS # 0.1 10^3/ul (0.0-0.5); EOSINOPHILS % 1.8 % (0.0-7.0); HEMATOCRIT 33.7 % (42.0-52.0); HEMOGLOBIN 10.9 g/dl (14.0-18.0); LYMPHOCYTES # 2.2 10^3/ul (0.8-2.9); LYMPHOCYTES % 42.5 % (15.0-51.0); MEAN CORPUSCULAR HEMOGLOBIN 26.6 pg (29.0-33.0); MEAN CORPUSCULAR HGB CONC 32.3 g/dl (32.0-37.0); MEAN CORPUSCULAR VOLUME 82.2 fl (82.0-101.0); MEAN PLATELET VOLUME 11.3 fl (7.4-10.4); MONOCYTE # 0.4 10^3/ul (0.3-0.9); MONOCYTES % 7.8 % (0.0-11.0); NEUTROPHIL # 2.4 10^3/ul (1.6-7.5); NEUTROPHILS % 46.9 % (39.0-77.0); PLATELET COUNT 158 10^3/UL (140-415); RED CELL DISTRIBUTION WIDTH 16.5 % (11.5-14.5)
[2018-10-07 05:22] LABS: WHITE BLOOD COUNT 5.1 10^3/ul (4.8-10.8)
[2018-10-07 05:36] LABS: ANION GAP 15 (5-13); BLOOD UREA NITROGEN 75 mg/dl (7-20); CALCIUM 9.2 mg/dl (8.4-10.2); CARBON DIOXIDE 25 mmol/L (21-31); CHLORIDE 103 mmol/L (97-110); GLUCOSE 118 mg/dl (70-220); POTASSIUM 3.4 mmol/L (3.5-5.1); SODIUM 143 mmol/L (135-144)
[2018-10-07] MEDS: LEVOTHYROXINE 75 MCG TAB PO (06:49)
[2018-10-07] MEDS: INSULIN ASPART [NOVOLOG] 3 ML PEN SC ×2 (07:36→11:10)
[2018-10-07] MEDS: ASPIRIN (EC) 81 MG TAB PO (08:54)
[2018-10-07] MEDS: ISOSORBIDE MONONITRATE(SR)60 MG TAB PO (08:54)
[2018-10-07] MEDS: FUROSEMIDE 20 MG TAB PO (08:54)
[2018-10-07] MEDS: TICAGRELOR 90 MG TABLET PO (08:59)
[2018-10-07] MEDS: POTASSIUM CHLORIDE (SR) 20 MEQ TAB PO (16:00)
== END 2018-10-07 19:03 | disposition home or self-care (01) | DRG 291 ==
LOC: E/R 18:29 → 6WM 21:47
DX: I13.0 Hypertensive heart and chronic kidney disease with heart failure and stage 1 through stage 4 chronic kidney disease, or unspecified chronic kidney disease (principal); I50.23 Acute on chronic systolic (congestive) heart failure; N17.0 Acute kidney failure with tubular necrosis; Z95.5 Presence of coronary angioplasty implant and graft; I42.9 Cardiomyopathy, unspecified; Z95.810 Presence of automatic (implantable) cardiac defibrillator; Z95.2 Presence of prosthetic heart valve; E78.5 Hyperlipidemia, unspecified; I25.2 Old myocardial infarction; N18.3 Chronic kidney disease, stage 3 (moderate)
CPT/HCPCS: 36415; 36600; 71045; 80048; 80053; 80061; 82803; 82962; 83735; 83880; 84100; 84443; 84484; 85025; 87081; 93005; 96374; 99285-25

== ENCOUNTER 2018-10-28 08:50 | Inpatient (IN) | payer MEDICARE, OTHER, MEDICAID ==
[2018-10-28] MEDS: FUROSEMIDE 40 MG INJ IV ×2 (09:31→18:17)
[2018-10-28 09:36] LABS: ADD MAN DIFF? NO
[2018-10-28 09:37] LABS: WHITE BLOOD COUNT 7.7 10^3/ul (4.8-10.8)
[2018-10-28 09:37] LABS: BASOPHILS % 0.1 % (0.0-2.0); EOSINOPHILS # 0.1 10^3/ul (0.0-0.5); EOSINOPHILS % 0.8 % (0.0-7.0); HEMATOCRIT 29.4 % (42.0-52.0); HEMOGLOBIN 9.3 g/dl (14.0-18.0); LYMPHOCYTES # 1.3 10^3/ul (0.8-2.9); LYMPHOCYTES % 16.4 % (15.0-51.0); MEAN CORPUSCULAR HEMOGLOBIN 26.3 pg (29.0-33.0); MEAN CORPUSCULAR HGB CONC 31.6 g/dl (32.0-37.0); MEAN CORPUSCULAR VOLUME 83.3 fl (82.0-101.0); MEAN PLATELET VOLUME 10.5 fl (7.4-10.4); MONOCYTE # 0.4 10^3/ul (0.3-0.9); MONOCYTES % 5.5 % (0.0-11.0); NEUTROPHIL # 5.8 10^3/ul (1.6-7.5); PLATELET COUNT 154 10^3/UL (140-415); RED BLOOD COUNT 3.53 10^6/ul (4.70-6.10); RED CELL DISTRIBUTION WIDTH 16.8 % (11.5-14.5)
[2018-10-28 09:48] LABS: ALANINE AMINOTRANSFERASE 25 IU/L (13-69); ALBUMIN 4.1 g/dl (3.3-4.9); ALKALINE PHOSPHATASE 99 IU/L (42-121); ANION GAP 13 (5-13); ASPARTATE AMINO TRANSFERASE 31 IU/L (15-46); BILIRUBIN,INDIRECT 0.7 mg/dl (0-1.1); BILIRUBIN,TOTAL 0.7 mg/dl (0.2-1.3); BLOOD UREA NITROGEN 28 mg/dl (7-20); CALCIUM 9.1 mg/dl (8.4-10.2); CARBON DIOXIDE 21 mmol/L (21-31); CHLORIDE 110 mmol/L (97-110); CREATININE 1.68 mg/dl (0.61-1.24); GLUCOSE 178 mg/dl (70-220); POTASSIUM 3.5 mmol/L (3.5-5.1); SODIUM 144 mmol/L (135-144); TOTAL PROTEIN 7.8 g/dl (6.1-8.1)
[2018-10-28 10:00] LABS: B-TYPE NATRIURETIC PEPTIDE 10100 PG/ML (0-450); TROPONIN-I 0.021 ng/ml (0.000-0.120)
[2018-10-28] MEDS ORDERED: ONDANSETRON 4 MG INJ IV (12:00)
[2018-10-28] MEDS ORDERED: ACETAMINOPHEN 325 MG TAB PO (12:00)
[2018-10-28] MEDS ORDERED: HYDROCODONE/APAP (5/325) TAB PO (15:00)
[2018-10-28] MEDS ORDERED: NACL 0.9% 3 ML SYG IV (15:00)
[2018-10-28] MEDS ORDERED: DOCUSATE SODIUM 100 MG CAP PO (15:00)
[2018-10-28 16:30] LABS: CREATINE KINASE 34 IU/L (23-200)
[2018-10-28 16:41] LABS: CK INDEX 1.4; CK-MB 0.49 ng/ml (0.0-2.4); TROPONIN-I 0.021 ng/ml (0.000-0.120)
[2018-10-28] MEDS: CEFTRIAXONE 1 GM/50 ML (PMX) 50 ML IVPB (16:49)
[2018-10-28] MEDS: ACCU-CHEK XX ×2 (17:04→20:21)
[2018-10-28] MEDS: ALBUTEROL/IPRATROPIUM (NEB) 3 ML AMP HHN ×2 (17:07→21:16)
[2018-10-28] MEDS: NATEGLINIDE 60 MG TAB PO (18:17)
[2018-10-28] MEDS: AZITHROMYCIN 500 MG in SOD CHLORIDE 0.9% 250 ML IVPB (18:29)
[2018-10-28 20:02] LABS: AADO2 Arterial 20.2 mmHg (7.0-24.0); Allen Test ACCEPTAB; Arterial Blood Gas Oxygen Sat 96.6 mmHG (95.0-100.0); Arterial COHb 0.3 % (0.0-3.0); Arterial HCO3 22.5 mmol/L (22.0-26.0); Arterial MetHb 0.3 % (0.0-1.5); Arterial pCO2 33.4 mmhg (35-45); MODE ROOM AIR; Site Right Radial
[2018-10-28] MEDS: ATORVASTATIN 20 MG TAB PO (20:12)
[2018-10-28] MEDS: LATANOPROST 0.005% 2.5 ML OPH BOTH EYES (20:12)
[2018-10-28] MEDS: TICAGRELOR 90 MG TABLET PO (20:16)
[2018-10-28 21:46] LABS: CREATINE KINASE 42 IU/L (23-200)
[2018-10-28 21:59] LABS: CK INDEX 1.1; CK-MB 0.45 ng/ml (0.0-2.4); TROPONIN-I 0.015 ng/ml (0.000-0.120)
[2018-10-29] MEDS: ALBUTEROL/IPRATROPIUM (NEB) 3 ML AMP HHN ×6 (01:23→21:46)
[2018-10-29] MEDS: METOLAZONE 2.5 MG TAB PO (05:53)
[2018-10-29] MEDS: FUROSEMIDE 40 MG INJ IV ×2 (06:35→17:20)
[2018-10-29] MEDS: PANTOPRAZOLE (EC) 40 MG TAB PO (06:35)
[2018-10-29] MEDS: LEVOTHYROXINE 75 MCG TAB PO (06:36)
[2018-10-29] MEDS: ACCU-CHEK XX ×4 (07:25→21:00)
[2018-10-29] MEDS: NATEGLINIDE 60 MG TAB PO ×3 (07:25→17:46)
[2018-10-29] MEDS: ALLOPURINOL 100 MG TAB PO (08:36)
[2018-10-29] MEDS: CEFTRIAXONE 1 GM/50 ML (PMX) 50 ML IVPB (08:36)
[2018-10-29] MEDS: ASPIRIN (EC) 81 MG TAB PO (08:36)
[2018-10-29] MEDS: ISOSORBIDE MONONITRATE(SR)60 MG TAB PO (08:37)
[2018-10-29] MEDS: TICAGRELOR 90 MG TABLET PO ×2 (08:48→21:58)
[2018-10-29 08:50] LABS: ADD MAN DIFF? NO
[2018-10-29 08:59] LABS: BASOPHILS % 0.2 % (0.0-2.0); EOSINOPHILS # 0.1 10^3/ul (0.0-0.5); EOSINOPHILS % 1.7 % (0.0-7.0); HEMATOCRIT 27.9 % (42.0-52.0); LYMPHOCYTES # 1.8 10^3/ul (0.8-2.9); LYMPHOCYTES % 29.8 % (15.0-51.0); MEAN CORPUSCULAR HEMOGLOBIN 26.5 pg (29.0-33.0); MEAN CORPUSCULAR HGB CONC 32.3 g/dl (32.0-37.0); MEAN CORPUSCULAR VOLUME 82.1 fl (82.0-101.0); MEAN PLATELET VOLUME 10.7 fl (7.4-10.4); MONOCYTE # 0.4 10^3/ul (0.3-0.9); MONOCYTES % 6.7 % (0.0-11.0); NEUTROPHIL # 3.6 10^3/ul (1.6-7.5); NEUTROPHILS % 60.4 % (39.0-77.0); PLATELET COUNT 163 10^3/UL (140-415); RED CELL DISTRIBUTION WIDTH 16.7 % (11.5-14.5)
[2018-10-29 09:16] LABS: ANION GAP 15 (5-13); BLOOD UREA NITROGEN 27 mg/dl (7-20); CALCIUM 9.1 mg/dl (8.4-10.2); CARBON DIOXIDE 25 mmol/L (21-31); CHLORIDE 106 mmol/L (97-110); CREATININE 1.67 mg/dl (0.61-1.24); GLUCOSE 119 mg/dl (70-220); MAGNESIUM 2.1 mg/dl (1.7-2.5); PHOSPHORUS 3.8 mg/dl (2.5-4.9); POTASSIUM 3.2 mmol/L (3.5-5.1); SODIUM 146 mmol/L (135-144)
[2018-10-29 09:43] LABS: HEMOGLOBIN A1C 6.7 % (0-5.9)
[2018-10-29] MEDS: POTASSIUM CHLORIDE (SR) 20 MEQ TAB PO (14:25)
[2018-10-29] MEDS: AZITHROMYCIN 500 MG in SOD CHLORIDE 0.9% 250 ML IVPB (17:20)
[2018-10-29] MEDS: ATORVASTATIN 20 MG TAB PO (21:56)
[2018-10-29] MEDS: LATANOPROST 0.005% 2.5 ML OPH BOTH EYES (21:58)
[2018-10-30] MEDS: ALBUTEROL/IPRATROPIUM (NEB) 3 ML AMP HHN ×6 (01:00→20:52)
[2018-10-30] MEDS: LEVOTHYROXINE 75 MCG TAB PO (06:16)
[2018-10-30] MEDS: PANTOPRAZOLE (EC) 40 MG TAB PO (06:16)
[2018-10-30] MEDS: FUROSEMIDE 40 MG INJ IV (06:17)
[2018-10-30 06:50] LABS: ANION GAP 12 (5-13); BLOOD UREA NITROGEN 36 mg/dl (7-20); CALCIUM 9.2 mg/dl (8.4-10.2); CARBON DIOXIDE 26 mmol/L (21-31); CHLORIDE 106 mmol/L (97-110); CREATININE 2.19 mg/dl (0.61-1.24); GLUCOSE 100 mg/dl (70-220); POTASSIUM 3.4 mmol/L (3.5-5.1); SODIUM 144 mmol/L (135-144)
[2018-10-30 07:17] LABS: CARCINOEMBRYONIC ANTIGEN 1.2 ng/ml (0.0-5.0)
[2018-10-30 07:21] LABS: CANCER ANTIGEN 19-9 3.4 U/ml (0.0-37.0)
[2018-10-30 07:42] LABS: PROSTATE SPECIFIC ANTIGEN 3.9 ng/ml (0.0-4.0)
[2018-10-30] MEDS: ACCU-CHEK XX ×4 (07:45→21:00)
[2018-10-30] MEDS: CEFTRIAXONE 1 GM/50 ML (PMX) 50 ML IVPB (09:28)
[2018-10-30] MEDS: METOLAZONE 2.5 MG TAB PO (09:30)
[2018-10-30] MEDS: NATEGLINIDE 60 MG TAB PO ×3 (09:30→17:35)
[2018-10-30] MEDS: ISOSORBIDE MONONITRATE(SR)60 MG TAB PO (09:30)
[2018-10-30] MEDS: ASPIRIN (EC) 81 MG TAB PO (09:30)
[2018-10-30] MEDS: ALLOPURINOL 100 MG TAB PO (09:30)
[2018-10-30] MEDS: TICAGRELOR 90 MG TABLET PO ×2 (09:34→20:20)
[2018-10-30] MEDS: POTASSIUM CHLORIDE (SR) 20 MEQ TAB PO (12:23)
[2018-10-30 18:59] LABS: ADD UMIC NO; UR ASCORBIC ACID NEGATIVE (NEGATIVE); UR BILIRUBIN (Dip) NEGATIVE (NEGATIVE); UR BLOOD (Dip) NEGATIVE (NEGATIVE); UR CLARITY CLEAR (CLEAR); UR COLOR STRAW (YELLOW); UR GLUCOSE (Dip) NEGATIVE (NEGATIVE); UR KETONES (Dip) NEGATIVE (NEGATIVE); UR LEUKOCYTE ESTERASE (Dip) NEGATIVE Leu/ul (NEGATIVE); UR NITRITE (Dip) NEGATIVE (NEGATIVE); UR SPECIFIC GRAVITY (Dip) 1.008 (1.003-1.030); UR TOTAL PROTEIN (Dip) NEGATIVE (NEGATIVE); UR UROBILINOGEN (Dip) NEGATIVE (NEGATIVE)
[2018-10-30] MEDS: LATANOPROST 0.005% 2.5 ML OPH BOTH EYES (20:12)
[2018-10-30] MEDS: ATORVASTATIN 20 MG TAB PO (20:12)
[2018-10-30] MEDS: ACETAMINOPHEN 325 MG TAB PO (23:39)
[2018-10-31] MEDS: ALBUTEROL/IPRATROPIUM (NEB) 3 ML AMP HHN ×6 (01:00→21:11)
[2018-10-31] MEDS: PANTOPRAZOLE (EC) 40 MG TAB PO (05:27)
[2018-10-31] MEDS: LEVOTHYROXINE 75 MCG TAB PO (05:27)
[2018-10-31] MEDS: ACCU-CHEK XX ×4 (07:25→20:06)
[2018-10-31 07:38] LABS: ANION GAP 16 (5-13); BLOOD UREA NITROGEN 43 mg/dl (7-20); CALCIUM 9.3 mg/dl (8.4-10.2); CARBON DIOXIDE 26 mmol/L (21-31); CHLORIDE 101 mmol/L (97-110); GLUCOSE 105 mg/dl (70-220); POTASSIUM 3.4 mmol/L (3.5-5.1); SODIUM 143 mmol/L (135-144)
[2018-10-31] MEDS: NATEGLINIDE 60 MG TAB PO ×3 (08:38→17:26)
[2018-10-31] MEDS: CEFTRIAXONE 1 GM/50 ML (PMX) 50 ML IVPB (08:38)
[2018-10-31] MEDS: ASPIRIN (EC) 81 MG TAB PO (08:39)
[2018-10-31] MEDS: AZITHROMYCIN 250 MG TAB PO (08:39)
[2018-10-31] MEDS: ISOSORBIDE MONONITRATE(SR)60 MG TAB PO (08:39)
[2018-10-31] MEDS: ALLOPURINOL 100 MG TAB PO (08:39)
[2018-10-31] MEDS: TICAGRELOR 90 MG TABLET PO ×2 (08:55→20:29)
[2018-10-31] MEDS: POTASSIUM CHLORIDE (SR) 20 MEQ TAB PO (10:05)
[2018-10-31 11:46] LABS: CA27.29 8 U/mL (<38)
[2018-10-31] MEDS: FUROSEMIDE 40 MG TAB PO (12:20)
[2018-10-31] MEDS: GUAIFENESIN/DM 5ML CUP PO (12:27)
[2018-10-31 14:09] LABS: ANA SCREEN NEGATIVE (NEGATIVE)
[2018-10-31] MEDS: ATORVASTATIN 20 MG TAB PO (20:10)
[2018-10-31] MEDS: LATANOPROST 0.005% 2.5 ML OPH BOTH EYES (20:10)
[2018-11-01] MEDS: ALBUTEROL/IPRATROPIUM (NEB) 3 ML AMP HHN ×6 (00:28→20:00)
[2018-11-01] MEDS: PANTOPRAZOLE (EC) 40 MG TAB PO (05:37)
[2018-11-01] MEDS: LEVOTHYROXINE 75 MCG TAB PO (05:37)
[2018-11-01] MEDS: NATEGLINIDE 60 MG TAB PO ×4 (07:25→17:37)
[2018-11-01] MEDS: ACCU-CHEK XX ×4 (07:52→20:54)
[2018-11-01] MEDS: AZITHROMYCIN 250 MG TAB PO (08:12)
[2018-11-01] MEDS: ALLOPURINOL 100 MG TAB PO (08:12)
[2018-11-01] MEDS: CEFTRIAXONE 1 GM/50 ML (PMX) 50 ML IVPB (08:12)
[2018-11-01] MEDS: FUROSEMIDE 40 MG TAB PO (08:13)
[2018-11-01] MEDS: TICAGRELOR 90 MG TABLET PO ×2 (08:16→20:53)
[2018-11-01] MEDS: ISOSORBIDE MONONITRATE(SR)60 MG TAB PO (08:19)
[2018-11-01] MEDS: ASPIRIN (EC) 81 MG TAB PO (08:19)
[2018-11-01 08:59] LABS: ADD MAN DIFF? NO
[2018-11-01 09:02] LABS: BASOPHILS % 0.2 % (0.0-2.0); EOSINOPHILS # 0.1 10^3/ul (0.0-0.5); EOSINOPHILS % 2.3 % (0.0-7.0); HEMATOCRIT 32.9 % (42.0-52.0); HEMOGLOBIN 10.5 g/dl (14.0-18.0); LYMPHOCYTES # 1.8 10^3/ul (0.8-2.9); LYMPHOCYTES % 34.8 % (15.0-51.0); MEAN CORPUSCULAR HEMOGLOBIN 25.9 pg (29.0-33.0); MEAN CORPUSCULAR HGB CONC 31.9 g/dl (32.0-37.0); MEAN PLATELET VOLUME 10.6 fl (7.4-10.4); MONOCYTE # 0.6 10^3/ul (0.3-0.9); MONOCYTES % 11.3 % (0.0-11.0); NEUTROPHIL # 2.6 10^3/ul (1.6-7.5); NEUTROPHILS % 49.9 % (39.0-77.0); PLATELET COUNT 202 10^3/UL (140-415); RED BLOOD COUNT 4.06 10^6/ul (4.70-6.10); RED CELL DISTRIBUTION WIDTH 16.8 % (11.5-14.5)
[2018-11-01 09:02] LABS: WHITE BLOOD COUNT 5.3 10^3/ul (4.8-10.8)
[2018-11-01 09:32] LABS: ANION GAP 13 (5-13); BLOOD UREA NITROGEN 49 mg/dl (7-20); CALCIUM 9.7 mg/dl (8.4-10.2); CARBON DIOXIDE 27 mmol/L (21-31); CHLORIDE 102 mmol/L (97-110); CREATININE 2.35 mg/dl (0.61-1.24); GLUCOSE 103 mg/dl (70-220); POTASSIUM 4.1 mmol/L (3.5-5.1); SODIUM 142 mmol/L (135-144)
[2018-11-01 09:33] LABS: PHOSPHORUS 4.5 mg/dl (2.5-4.9)
[2018-11-01 09:33] LABS: MAGNESIUM 2.5 mg/dl (1.7-2.5)
[2018-11-01] MEDS: REGADENOSON 0.4 MG/5 ML SYG (13:55)
[2018-11-01 14:47] LABS: NIL 0.01 IU/mL
[2018-11-01] MEDS: LATANOPROST 0.005% 2.5 ML OPH BOTH EYES (20:51)
[2018-11-01] MEDS: ATORVASTATIN 20 MG TAB PO (20:53)
[2018-11-01] MEDS: HEPARIN 5,000 UNIT/1 ML VIAL SC ×2 (20:54→21:00)
[2018-11-02] MEDS: ALBUTEROL/IPRATROPIUM (NEB) 3 ML AMP HHN ×6 (04:41→21:21)
[2018-11-02] MEDS: PANTOPRAZOLE (EC) 40 MG TAB PO (05:50)
[2018-11-02] MEDS: LEVOTHYROXINE 75 MCG TAB PO (05:51)
[2018-11-02 06:20] LABS: ADD MAN DIFF? NO
[2018-11-02 06:24] LABS: WHITE BLOOD COUNT 6.1 10^3/ul (4.8-10.8)
[2018-11-02 06:24] LABS: BASOPHILS % 0.2 % (0.0-2.0); EOSINOPHILS # 0.1 10^3/ul (0.0-0.5); EOSINOPHILS % 1.3 % (0.0-7.0); HEMATOCRIT 31.3 % (42.0-52.0); HEMOGLOBIN 10.3 g/dl (14.0-18.0); LYMPHOCYTES # 1.7 10^3/ul (0.8-2.9); LYMPHOCYTES % 27.1 % (15.0-51.0); MEAN CORPUSCULAR HEMOGLOBIN 26.3 pg (29.0-33.0); MEAN CORPUSCULAR HGB CONC 32.9 g/dl (32.0-37.0); MEAN CORPUSCULAR VOLUME 80.1 fl (82.0-101.0); MEAN PLATELET VOLUME 11.2 fl (7.4-10.4); MONOCYTE # 0.6 10^3/ul (0.3-0.9); MONOCYTES % 9.3 % (0.0-11.0); NEUTROPHIL # 3.7 10^3/ul (1.6-7.5); PLATELET COUNT 203 10^3/UL (140-415); RED BLOOD COUNT 3.91 10^6/ul (4.70-6.10); RED CELL DISTRIBUTION WIDTH 16.7 % (11.5-14.5)
[2018-11-02 06:56] LABS: ANION GAP 18 (5-13); BLOOD UREA NITROGEN 57 mg/dl (7-20); CARBON DIOXIDE 26 mmol/L (21-31); CHLORIDE 97 mmol/L (97-110); CREATININE 2.49 mg/dl (0.61-1.24); GLUCOSE 102 mg/dl (70-220); SODIUM 141 mmol/L (135-144)
[2018-11-02] MEDS: ACCU-CHEK XX ×4 (08:14→20:22)
[2018-11-02] MEDS: NATEGLINIDE 60 MG TAB PO ×3 (08:15→18:03)
[2018-11-02] MEDS: ISOSORBIDE MONONITRATE(SR)60 MG TAB PO (08:16)
[2018-11-02] MEDS: AZITHROMYCIN 250 MG TAB PO (08:16)
[2018-11-02] MEDS: ALLOPURINOL 100 MG TAB PO (08:17)
[2018-11-02] MEDS: FUROSEMIDE 40 MG TAB PO (08:17)
[2018-11-02] MEDS: ASPIRIN (EC) 81 MG TAB PO (08:17)
[2018-11-02] MEDS: CEFTRIAXONE 1 GM/50 ML (PMX) 50 ML IVPB (08:18)
[2018-11-02] MEDS: HEPARIN 5,000 UNIT/1 ML VIAL SC ×2 (08:50→20:18)
[2018-11-02] MEDS: TICAGRELOR 90 MG TABLET PO ×2 (08:50→20:18)
[2018-11-02] MEDS: ACETAMINOPHEN 325 MG TAB PO (11:44)
[2018-11-02] MEDS: GUAIFENESIN/DM 5ML CUP PO (11:44)
[2018-11-02] MEDS: ONDANSETRON 4 MG INJ IV (12:47)
[2018-11-02] MEDS: DOXYCYCLINE 100 MG in SOD CHLORIDE 0.9% 250 ML IVPB ×2 (13:00→20:21)
[2018-11-02] MEDS: MEGESTROL (40 MG/ML) 10ML CUP PO ×2 (14:56→20:15)
[2018-11-02] MEDS: LATANOPROST 0.005% 2.5 ML OPH BOTH EYES (20:13)
[2018-11-02] MEDS: ATORVASTATIN 20 MG TAB PO (20:15)
[2018-11-03] MEDS: ALBUTEROL/IPRATROPIUM (NEB) 3 ML AMP HHN ×6 (00:30→21:20)
[2018-11-03] MEDS: LEVOTHYROXINE 75 MCG TAB PO (06:18)
[2018-11-03] MEDS: PANTOPRAZOLE (EC) 40 MG TAB PO (06:19)
[2018-11-03] MEDS: GUAIFENESIN/DM 5ML CUP PO ×3 (06:23→22:08)
[2018-11-03 06:54] LABS: ADD MAN DIFF? NO
[2018-11-03 06:56] LABS: WHITE BLOOD COUNT 5.2 10^3/ul (4.8-10.8)
[2018-11-03 06:56] LABS: EOSINOPHILS # 0.1 10^3/ul (0.0-0.5); EOSINOPHILS % 1.5 % (0.0-7.0); HEMATOCRIT 29.5 % (42.0-52.0); HEMOGLOBIN 9.6 g/dl (14.0-18.0); LYMPHOCYTES # 1.9 10^3/ul (0.8-2.9); LYMPHOCYTES % 37.5 % (15.0-51.0); MEAN CORPUSCULAR HEMOGLOBIN 26.2 pg (29.0-33.0); MEAN CORPUSCULAR HGB CONC 32.5 g/dl (32.0-37.0); MEAN CORPUSCULAR VOLUME 80.4 fl (82.0-101.0); MONOCYTE # 0.5 10^3/ul (0.3-0.9); MONOCYTES % 10.4 % (0.0-11.0); NEUTROPHIL # 2.5 10^3/ul (1.6-7.5); NEUTROPHILS % 49.2 % (39.0-77.0); PLATELET COUNT 167 10^3/UL (140-415); RED BLOOD COUNT 3.67 10^6/ul (4.70-6.10); RED CELL DISTRIBUTION WIDTH 16.6 % (11.5-14.5)
[2018-11-03 07:26] LABS: ANION GAP 14 (5-13); BLOOD UREA NITROGEN 70 mg/dl (7-20); CALCIUM 8.8 mg/dl (8.4-10.2); CARBON DIOXIDE 26 mmol/L (21-31); CHLORIDE 101 mmol/L (97-110); CREATININE 3.04 mg/dl (0.61-1.24); GLUCOSE 68 mg/dl (70-220); POTASSIUM 3.6 mmol/L (3.5-5.1); SODIUM 141 mmol/L (135-144)
[2018-11-03] MEDS: NATEGLINIDE 60 MG TAB PO ×2 (07:41→11:50)
[2018-11-03] MEDS: ACCU-CHEK XX ×4 (07:43→21:40)
[2018-11-03] MEDS: MEGESTROL (40 MG/ML) 10ML CUP PO ×2 (08:30→20:25)
[2018-11-03] MEDS: FUROSEMIDE 40 MG TAB PO (08:31)
[2018-11-03] MEDS: ISOSORBIDE MONONITRATE(SR)60 MG TAB PO (08:31)
[2018-11-03] MEDS: ASPIRIN (EC) 81 MG TAB PO (08:31)
[2018-11-03] MEDS: ALLOPURINOL 100 MG TAB PO (08:32)
[2018-11-03] MEDS: CEFTRIAXONE 1 GM/50 ML (PMX) 50 ML IVPB (08:32)
[2018-11-03] MEDS: AZITHROMYCIN 250 MG TAB PO (08:32)
[2018-11-03] MEDS: HEPARIN 5,000 UNIT/1 ML VIAL SC ×2 (08:43→20:37)
[2018-11-03] MEDS: TICAGRELOR 90 MG TABLET PO ×2 (08:43→20:37)
[2018-11-03] MEDS: DOXYCYCLINE 100 MG in SOD CHLORIDE 0.9% 250 ML IVPB ×2 (09:20→20:27)
[2018-11-03 16:08] LABS: ADD UMIC NO; UR ASCORBIC ACID 40 mg/dL (NEGATIVE); UR BILIRUBIN (Dip) NEGATIVE (NEGATIVE); UR BLOOD (Dip) NEGATIVE (NEGATIVE); UR CLARITY CLEAR (CLEAR); UR COLOR YELLOW (YELLOW); UR GLUCOSE (Dip) NEGATIVE (NEGATIVE); UR KETONES (Dip) NEGATIVE (NEGATIVE); UR LEUKOCYTE ESTERASE (Dip) NEGATIVE Leu/ul (NEGATIVE); UR NITRITE (Dip) NEGATIVE (NEGATIVE); UR SPECIFIC GRAVITY (Dip) 1.009 (1.003-1.030); UR TOTAL PROTEIN (Dip) NEGATIVE (NEGATIVE); UR UROBILINOGEN (Dip) NEGATIVE (NEGATIVE)
[2018-11-03] MEDS: NATEGLINIDE 120 MG TAB PO (17:39)
[2018-11-03] MEDS: LATANOPROST 0.005% 2.5 ML OPH BOTH EYES (20:25)
[2018-11-03] MEDS: ATORVASTATIN 20 MG TAB PO (20:25)
[2018-11-04] MEDS: ALBUTEROL/IPRATROPIUM (NEB) 3 ML AMP HHN ×6 (01:00→21:00)
[2018-11-04] MEDS: PANTOPRAZOLE (EC) 40 MG TAB PO (05:43)
[2018-11-04] MEDS: LEVOTHYROXINE 75 MCG TAB PO (05:44)
[2018-11-04 07:14] LABS: ANION GAP 16 (5-13); BLOOD UREA NITROGEN 69 mg/dl (7-20); CALCIUM 8.8 mg/dl (8.4-10.2); CARBON DIOXIDE 23 mmol/L (21-31); CHLORIDE 102 mmol/L (97-110); CREATININE 2.67 mg/dl (0.61-1.24); GLUCOSE 64 mg/dl (70-220); POTASSIUM 3.2 mmol/L (3.5-5.1); SODIUM 141 mmol/L (135-144)
[2018-11-04] MEDS: ACCU-CHEK XX ×4 (07:25→21:00)
[2018-11-04] MEDS: NATEGLINIDE 120 MG TAB PO ×2 (07:25→12:12)
[2018-11-04] MEDS: DOXYCYCLINE 100 MG in SOD CHLORIDE 0.9% 250 ML IVPB (09:00)
[2018-11-04] MEDS: CEFTRIAXONE 1 GM/50 ML (PMX) 50 ML IVPB (09:24)
[2018-11-04] MEDS: MEGESTROL (40 MG/ML) 10ML CUP PO ×2 (09:24→22:02)
[2018-11-04] MEDS: GUAIFENESIN/DM 5ML CUP PO (09:24)
[2018-11-04] MEDS: ASPIRIN (EC) 81 MG TAB PO (09:25)
[2018-11-04] MEDS: ONDANSETRON 4 MG INJ IV (09:25)
[2018-11-04] MEDS: ALLOPURINOL 100 MG TAB PO (09:25)
[2018-11-04] MEDS: FUROSEMIDE 40 MG TAB PO (09:26)
[2018-11-04] MEDS: ISOSORBIDE MONONITRATE(SR)60 MG TAB PO (09:27)
[2018-11-04] MEDS: TICAGRELOR 90 MG TABLET PO ×2 (09:41→22:13)
[2018-11-04] MEDS: HEPARIN 5,000 UNIT/1 ML VIAL SC ×2 (09:41→22:12)
[2018-11-04] MEDS: POTASSIUM CHLORIDE (SR) 20 MEQ TAB PO (12:13)
[2018-11-04] MEDS: ATORVASTATIN 20 MG TAB PO (22:02)
[2018-11-04] MEDS: LATANOPROST 0.005% 2.5 ML OPH BOTH EYES (22:05)
[2018-11-05] MEDS: ALBUTEROL/IPRATROPIUM (NEB) 3 ML AMP HHN ×6 (00:40→20:35)
[2018-11-05] MEDS: PANTOPRAZOLE (EC) 40 MG TAB PO (06:31)
[2018-11-05] MEDS: LEVOTHYROXINE 75 MCG TAB PO (06:31)
[2018-11-05 06:52] LABS: ADD MAN DIFF? NO
[2018-11-05 06:59] LABS: WHITE BLOOD COUNT 3.7 10^3/ul (4.8-10.8)
[2018-11-05 06:59] LABS: EOSINOPHILS # 0.1 10^3/ul (0.0-0.5); EOSINOPHILS % 1.4 % (0.0-7.0); HEMATOCRIT 28.8 % (42.0-52.0); HEMOGLOBIN 9.2 g/dl (14.0-18.0); LYMPHOCYTES # 1.7 10^3/ul (0.8-2.9); LYMPHOCYTES % 44.6 % (15.0-51.0); MEAN CORPUSCULAR HEMOGLOBIN 25.8 pg (29.0-33.0); MEAN CORPUSCULAR HGB CONC 31.9 g/dl (32.0-37.0); MEAN CORPUSCULAR VOLUME 80.9 fl (82.0-101.0); MEAN PLATELET VOLUME 10.1 fl (7.4-10.4); MONOCYTE # 0.5 10^3/ul (0.3-0.9); MONOCYTES % 12.7 % (0.0-11.0); NEUTROPHIL # 1.5 10^3/ul (1.6-7.5); NEUTROPHILS % 40.8 % (39.0-77.0); PLATELET COUNT 154 10^3/UL (140-415); RED BLOOD COUNT 3.56 10^6/ul (4.70-6.10); RED CELL DISTRIBUTION WIDTH 16.7 % (11.5-14.5)
[2018-11-05 07:25] LABS: ANION GAP 14 (5-13); BLOOD UREA NITROGEN 72 mg/dl (7-20); CALCIUM 9.2 mg/dl (8.4-10.2); CARBON DIOXIDE 25 mmol/L (21-31); CHLORIDE 104 mmol/L (97-110); CREATININE 2.62 mg/dl (0.61-1.24); GLUCOSE 103 mg/dl (70-220); POTASSIUM 4.2 mmol/L (3.5-5.1); SODIUM 143 mmol/L (135-144)
[2018-11-05] MEDS: ACCU-CHEK XX ×4 (07:25→21:00)
[2018-11-05 08:20] LABS: MAGNESIUM 2.3 mg/dl (1.7-2.5)
[2018-11-05 08:20] LABS: PHOSPHORUS 4.3 mg/dl (2.5-4.9)
[2018-11-05] MEDS: ISOSORBIDE MONONITRATE(SR)60 MG TAB PO (08:49)
[2018-11-05] MEDS: MEGESTROL (40 MG/ML) 10ML CUP PO ×2 (08:49→20:49)
[2018-11-05] MEDS: TICAGRELOR 90 MG TABLET PO ×2 (08:50→20:56)
[2018-11-05] MEDS: HEPARIN 5,000 UNIT/1 ML VIAL SC ×2 (08:51→21:19)
[2018-11-05] MEDS: ALLOPURINOL 100 MG TAB PO (08:51)
[2018-11-05] MEDS: ASPIRIN (EC) 81 MG TAB PO (08:51)
[2018-11-05] MEDS: NATEGLINIDE 120 MG TAB PO ×2 (08:55→13:58)
[2018-11-05] MEDS ORDERED: NATEGLINIDE 120 MG TAB PO (11:20)
[2018-11-05] MEDS ORDERED: GLUCOSE GEL 15 GRAM TUBE PO ×2 (13:30)
[2018-11-05] MEDS ORDERED: GLUCAGON 1 MG INJ IM (13:30)
[2018-11-05] MEDS ORDERED: GLUCOSE GEL 15 GRAM TUBE BUCCAL (13:30)
[2018-11-05] MEDS ORDERED: DEXTROSE 50% 50 ML SYRINGE IV ×2 (13:30)
[2018-11-05] MEDS: FUROSEMIDE 40 MG TAB PO (13:53)
[2018-11-05] MEDS: INSULIN ASPART [NOVOLOG] 3 ML PEN SC ×3 (14:03→21:00)
[2018-11-05] MEDS: GUAIFENESIN/DM 5ML CUP PO (20:48)
[2018-11-05] MEDS: ATORVASTATIN 20 MG TAB PO (20:49)
[2018-11-05] MEDS: LATANOPROST 0.005% 2.5 ML OPH BOTH EYES (21:00)
[2018-11-06] MEDS: ALBUTEROL/IPRATROPIUM (NEB) 3 ML AMP HHN ×7 (01:00→20:00)
[2018-11-06] MEDS: ACCU-CHEK XX ×5 (02:00→21:00)
[2018-11-06] MEDS: LEVOTHYROXINE 75 MCG TAB PO (06:58)
[2018-11-06] MEDS: PANTOPRAZOLE (EC) 40 MG TAB PO (06:58)
[2018-11-06] MEDS: INSULIN ASPART [NOVOLOG] 3 ML PEN SC ×4 (07:49→21:34)
[2018-11-06] MEDS: MEGESTROL (40 MG/ML) 10ML CUP PO ×2 (08:14→21:24)
[2018-11-06] MEDS: ISOSORBIDE MONONITRATE(SR)60 MG TAB PO (08:14)
[2018-11-06] MEDS: ALLOPURINOL 100 MG TAB PO (08:15)
[2018-11-06] MEDS: ASPIRIN (EC) 81 MG TAB PO (08:15)
[2018-11-06] MEDS: TICAGRELOR 90 MG TABLET PO ×2 (08:20→21:34)
[2018-11-06] MEDS: HEPARIN 5,000 UNIT/1 ML VIAL SC ×2 (08:20→21:34)
[2018-11-06 08:56] LABS: ADD MAN DIFF? NO
[2018-11-06 09:01] LABS: WHITE BLOOD COUNT 3.9 10^3/ul (4.8-10.8)
[2018-11-06 09:01] LABS: BASOPHILS % 0.3 % (0.0-2.0); EOSINOPHILS % 0.8 % (0.0-7.0); HEMATOCRIT 30.1 % (42.0-52.0); HEMOGLOBIN 9.7 g/dl (14.0-18.0); LYMPHOCYTES % 51.4 % (15.0-51.0); MEAN CORPUSCULAR HEMOGLOBIN 26.1 pg (29.0-33.0); MEAN CORPUSCULAR HGB CONC 32.2 g/dl (32.0-37.0); MEAN CORPUSCULAR VOLUME 80.9 fl (82.0-101.0); MEAN PLATELET VOLUME 11.9 fl (7.4-10.4); MONOCYTE # 0.3 10^3/ul (0.3-0.9); MONOCYTES % 8.5 % (0.0-11.0); NEUTROPHIL # 1.5 10^3/ul (1.6-7.5); NEUTROPHILS % 38.2 % (39.0-77.0); PLATELET COUNT 184 10^3/UL (140-415); RED BLOOD COUNT 3.72 10^6/ul (4.70-6.10); RED CELL DISTRIBUTION WIDTH 16.7 % (11.5-14.5)
[2018-11-06 09:20] LABS: ANION GAP 15 (5-13); BLOOD UREA NITROGEN 86 mg/dl (7-20); CALCIUM 9.7 mg/dl (8.4-10.2); CARBON DIOXIDE 25 mmol/L (21-31); CHLORIDE 103 mmol/L (97-110); CREATININE 2.63 mg/dl (0.61-1.24); GLUCOSE 103 mg/dl (70-220); POTASSIUM 4.1 mmol/L (3.5-5.1); SODIUM 143 mmol/L (135-144)
[2018-11-06 09:23] LABS: MAGNESIUM 2.2 mg/dl (1.7-2.5)
[2018-11-06 09:23] LABS: PHOSPHORUS 4.2 mg/dl (2.5-4.9)
[2018-11-06] MEDS: FUROSEMIDE 40 MG TAB PO (11:42)
[2018-11-06 12:52] LABS: NIL 0.06 IU/mL; QUANTIFERON(R)-TB GOLD POSITIVE (NEGATIVE); TB-NIL 0.78 IU/mL
[2018-11-06] MEDS: GUAIFENESIN/DM 5ML CUP PO ×2 (14:04→21:49)
[2018-11-06] MEDS: SOD CHLORIDE 0.45% 1,000 ML IV (14:59)
[2018-11-06] MEDS: ATORVASTATIN 20 MG TAB PO (21:23)
[2018-11-06] MEDS: LATANOPROST 0.005% 2.5 ML OPH BOTH EYES (21:24)
[2018-11-07] MEDS: ALBUTEROL/IPRATROPIUM (NEB) 3 ML AMP HHN ×6 (00:18→21:02)
[2018-11-07] MEDS: ACCU-CHEK XX ×5 (02:00→21:00)
[2018-11-07] MEDS: PANTOPRAZOLE (EC) 40 MG TAB PO (06:36)
[2018-11-07] MEDS: LEVOTHYROXINE 75 MCG TAB PO (06:36)
[2018-11-07] MEDS: INSULIN ASPART [NOVOLOG] 3 ML PEN SC ×4 (07:28→22:19)
[2018-11-07] MEDS: ALLOPURINOL 100 MG TAB PO (08:16)
[2018-11-07] MEDS: MEGESTROL (40 MG/ML) 10ML CUP PO ×2 (08:16→21:51)
[2018-11-07] MEDS: ISOSORBIDE MONONITRATE(SR)60 MG TAB PO (08:16)
[2018-11-07] MEDS: ASPIRIN (EC) 81 MG TAB PO (08:18)
[2018-11-07] MEDS: HEPARIN 5,000 UNIT/1 ML VIAL SC ×2 (08:22→21:00)
[2018-11-07] MEDS: TICAGRELOR 90 MG TABLET PO ×2 (08:22→22:19)
[2018-11-07 09:29] LABS: ANION GAP 12 (5-13); BLOOD UREA NITROGEN 92 mg/dl (7-20); CALCIUM 9.8 mg/dl (8.4-10.2); CARBON DIOXIDE 24 mmol/L (21-31); CHLORIDE 106 mmol/L (97-110); CREATININE 2.39 mg/dl (0.61-1.24); GLUCOSE 133 mg/dl (70-220); POTASSIUM 4.5 mmol/L (3.5-5.1); SODIUM 142 mmol/L (135-144)
[2018-11-07] MEDS: SOD CHLORIDE 0.45% 1,000 ML IV (11:04)
[2018-11-07] MEDS: ATORVASTATIN 20 MG TAB PO (21:51)
[2018-11-07] MEDS: GUAIFENESIN/DM 5ML CUP PO (22:13)
[2018-11-08] MEDS: LATANOPROST 0.005% 2.5 ML OPH BOTH EYES (00:30)
[2018-11-08] MEDS: ALBUTEROL/IPRATROPIUM (NEB) 3 ML AMP HHN ×5 (01:00→16:35)
[2018-11-08] MEDS: ACCU-CHEK XX ×3 (01:39→12:04)
[2018-11-08] MEDS: PANTOPRAZOLE (EC) 40 MG TAB PO (05:53)
[2018-11-08] MEDS: LEVOTHYROXINE 75 MCG TAB PO (06:00)
[2018-11-08 06:56] LABS: ANION GAP 13 (5-13); BLOOD UREA NITROGEN 93 mg/dl (7-20); CALCIUM 9.8 mg/dl (8.4-10.2); CARBON DIOXIDE 20 mmol/L (21-31); CHLORIDE 111 mmol/L (97-110); GLUCOSE 133 mg/dl (70-220); POTASSIUM 4.4 mmol/L (3.5-5.1); SODIUM 144 mmol/L (135-144)
[2018-11-08] MEDS: INSULIN ASPART [NOVOLOG] 3 ML PEN SC ×2 (07:55→12:55)
[2018-11-08] MEDS: MEGESTROL (40 MG/ML) 10ML CUP PO (08:37)
[2018-11-08] MEDS: ALLOPURINOL 100 MG TAB PO (08:37)
[2018-11-08] MEDS: ASPIRIN (EC) 81 MG TAB PO (08:37)
[2018-11-08] MEDS: ISOSORBIDE MONONITRATE(SR)60 MG TAB PO (08:38)
[2018-11-08] MEDS: HEPARIN 5,000 UNIT/1 ML VIAL SC (08:39)
[2018-11-08] MEDS: TICAGRELOR 90 MG TABLET PO (08:39)
[2018-11-08] MEDS: SOD CHLORIDE 0.45% 1,000 ML IV (10:30)
[2018-11-08] MEDS: GUAIFENESIN/DM 5ML CUP PO (13:16)
== END 2018-11-08 17:18 | disposition home or self-care (01) | DRG 291 ==
LOC: TEL 10-31 18:30 → E/R 08:50 → TEL 11:37
DX: I13.0 Hypertensive heart and chronic kidney disease with heart failure and stage 1 through stage 4 chronic kidney disease, or unspecified chronic kidney disease (principal); I50.23 Acute on chronic systolic (congestive) heart failure; J18.9 Pneumonia, unspecified organism; N17.9 Acute kidney failure, unspecified; N18.3 Chronic kidney disease, stage 3 (moderate); E11.22 Type 2 diabetes mellitus with diabetic chronic kidney disease; I42.9 Cardiomyopathy, unspecified; D63.1 Anemia in chronic kidney disease; E78.5 Hyperlipidemia, unspecified; M10.9 Gout, unspecified; E03.9 Hypothyroidism, unspecified; Z95.5 Presence of coronary angioplasty implant and graft; Z95.2 Presence of prosthetic heart valve; Z95.810 Presence of automatic (implantable) cardiac defibrillator
CPT/HCPCS: 36415; 36600; 71045; 71250; 78452; 78582; 80048; 80053; 81003; 82378; 82550; 82553; 82803; 82962; 83036; 83735; 83880; 84100; 84153; 84154; 84484; 85025; 86038; 86300; 86301; 86480; 86635; 87040-91; 87081; 93005; 93017; 93306; 94640; 94664; 96374; 99285-25; G0378